=== PATIENT | female | born 2005 | race Caucasian/White ===

== ENCOUNTER 2023-07-22 16:48 | Emergency (ER) | payer OTHER ==
--- NOTE | 2023-07-22 17:16 | ED ---
General Adult HPI - General Chief complaint: Upper Respiratory Infection Stated complaint: Back Pain Time Seen by Provider: 07/22/23 17:14 Source: patient, family, RN notes reviewed Mode of arrival: ambulatory Limitations: no limitations - History of Present Illness Initial comments: 17-year-old female presents emergency department with chief complaint of right flank pain 3 days. Denies aggravating or alleviating factors. She also admits to dysuria. Denies gross hematuria. Admits to fever. She has no significant past medical history. No known medication ALLERGIES. - Related Data Previous Rx's Medication Instructions Recorded Cephalexin [Keflex] 500 mg PO Q6HR #40 cap 07/23/23 Allergies Allergy/AdvReac Type Severity Reaction Status Date / Time No Known Allergies Allergy Verified 07/22/23 17:12 Review of Systems ROS Statement: Those systems with pertinent positive or pertinent negative responses have been documented in the HPI. ROS Other: All systems not noted in ROS Statement are negative. Past Medical History Past Medical History: No Reported History Past Surgical History: No Surgical Hx Reported Smoking Status: Vaper Past Drug Use History: Marijuana General Exam - General Exam Comments Initial Comments: Visual Physical Exam Vital signs reviewed General: Well-appearing, nontoxic, no acute distress. Head: Normocephalic, atraumatic Eyes: PERRLA, EOMI ENT: Airway patent Chest: Nonlabored breathing Skin: No visual rash, normal skin tone Neuro: Alert and oriented 3 Musculoskeletal: No gross abnormalities Limitations: no limitations General appearance: alert, in no apparent distress Head exam: Present: atraumatic, normocephalic, normal inspection Eye exam: Present: normal appearance, PERRL, EOMI. Absent: scleral icterus, conjunctival injection, periorbital swelling ENT exam: Present: normal exam, mucous membranes moist Neck exam: Present: normal inspection. Absent: tenderness, meningismus, lymphadenopathy Respiratory exam: Present: normal lung sounds bilaterally. Absent: respiratory distress, wheezes, rales, rhonchi, stridor Cardiovascular Exam: Present: regular rate, normal rhythm, normal heart sounds. Absent: systolic murmur, diastolic murmur, rubs, gallop, clicks GI/Abdominal exam: Present: soft, normal bowel sounds. Absent: distended, tenderness, guarding, rebound, rigid Extremities exam: Present: normal inspection Back exam: Present: CVA tenderness (R). Absent: CVA tenderness (L) Neurological exam: Present: alert, oriented X3 Psychiatric exam: Present: normal affect, normal mood Skin exam: Present: warm, dry, intact, normal color. Absent: rash Course Vital Signs 07/22/23 07/22/23 17:08 21:38 Temperature 102.4 F H 99.1 F Pulse Rate 120 H 81 Respiratory 20 16 Rate Blood Pressure 122/60 115/74 O2 Sat by Pulse 98 100 Oximetry Medical Decision Making - Medical Decision Making Quick note preformed by Dulce Rodriguez PA-C Was pt. sent in by a medical professional or institution ([facility], STEREOTYPER, urgent care, hospital, or snf...) When possible be specific @ -No Did you speak to anyone other than the patient for history (EMS, parent, family, police, friend...)? What history was obtained from this source @ -No Did you review nursing and triage notes (agree or disagree)? Why? @ -I reviewed and agree with nursing and triage notes Were old charts reviewed (outside hosp., previous admission, EMS record, old EKG, old radiological studies, urgent care reports/EKG's, snf records)? Report findings @ -No old charts were reviewed Differential Diagnosis (chest pain, altered mental status, abdominal pain women, abdominal pain men, vaginal bleeding, weakness, fever, dyspnea, syncope, headache, dizziness, GI bleed, back pain, seizure, CVA, palpatations, mental health, musculoskeletal)? @ -Differential Back Pain: Strain, zoster, cauda equina syndrome, epidural abscess, vertebral osteomyelitis, discitis, fracture, subluxation, disc herniation, DJD, spinal ida nosis, dissection, AAA, pancreatitis, peptic ulcer disease, pyelonephritis, kidney stone, this is not meant to be an all-inclusive list. EKG interpreted by me (3pts min.). @ -None X-rays interpreted by me (1pt min.). @ -None done CT interpreted by me (1pt min.). @ -None done U/S interpreted by me (1pt. min.). @ -None done What testing was considered but not performed or refused? (CT, X-rays, U/S, labs)? Why? @ -CT imaging considered, clinical diagnosis of pyelonephritis utilized What meds were considered but not given or refused? Why? @ -None Did you discuss the management of the patient with other professionals (professionals i.e. , PA, STEREOTYPER, lab, RT, psych nurse, social media content manager, sanitation superintendent, teacher, home lending officer, upper caser)? Give summary @ -No Was smoking cessation discussed for >3mins.? @ -No Was critical care preformed (if so, how long)? @ -No Were there social determinants of health that impacted care today? How? (Homele ssness, low income, unemployed, alcoholism, drug addiction, transportation, low edu. Level, literacy, decrease access to med. care, penitentiary, rehab)? @ -No Was there de-escalation of care discussed even if they declined (Discuss DNR or withdrawal of care, Hospice)? DNR status @ -No What co-morbidities impacted this encounter? (DM, HTN, Smoking, COPD, CAD, Cancer, CVA, ARF, Chemo, Hep., AIDS, mental health diagnosis, sleep apnea, morbid obesity)? @ -None Was patient admitted / discharged? Hospital course, mention meds given and route, prescriptions, significant lab abnormalities, going to OR and other pertinent info. @ -Discharged. Patient presented to the emergency department with chief complaint of dysuria and right flank pain 3 days. UA obtained shows positive nitrates, large leukocyte esterase, greater than 182 diabetes sees, many wbc clumps; CBC shows WBC 8.8, hemoglobin 13.4; CMP essentially unremarkable; Covid, influenza, RSV negative. Patient is found to be afebrile and tachycardic in the emergency department. Patient received 2 L of normal saline and 1 g of Rocephin IV. Repeat vital signs within normal limits. Patient will be treated for clinical diagnosis of pyelonephritis. Patient stable for discharge and outpatient treatment. Prescription sent to the patient's pharmacy for antibiotics. Strict return precautions discussed. Patient and mother understand and agreeable with discharge plan. Case discussed with Dr. Meléndez Undiagnosed new problem with uncertain prognosis? @ -No Drug Therapy requiring intensive monitoring for toxicity (Heparin, Nitro, Insulin, Cardizem)? @ -No Were any procedures done? @ -No Diagnosis/symptom? @ -Pyelonephritis Acute, or Chronic, or Acute on Chronic? @ -acute Uncomplicated (without systemic symptoms) or Complicated (systemic symptoms)? @ -complicated Side effects of treatment? @ -No Exacerbation, Progression, or Severe Exacerbation? @ -No Poses a threat to life or bodily function? How? (Chest pain, [place], [place], pneumonia, PE, COPD, DKA, ARF, appy, cholecystitis, CVA, Diverticulitis, Homicidal, Suicidal, threat to staff... and all critical care pts) @ -No - Lab Data Result diagrams: 07/22/23 20:23 07/22/23 20:23 Lab Results 07/22/23 07/22/23 07/22/23 Range/Units 17:14 17:47 17:47 WBC (4.0-11.0) k/uL RBC (3.80-5.40) m/uL Hgb (11.4-16.0) gm/dL Hct (34.0-46.0) % MCV (80.0-100.0) fL MCH (25.0-35.0) pg MCHC (31.0-37.0) g/dL RDW (11.5-15.5) % Plt Count (150-450) k/uL MPV Neutrophils % % Lymphocytes % % Monocytes % % Eosinophils % % Basophils % % Neutrophils # (1.3-7.7) k/uL Lymphocytes # (1.0-4.8) k/uL Monocytes # (0-1.0) k/uL Eosinophils # (0-0.7) k/uL Basophils # (0-0.2) k/uL Sodium (137-145) mmol/L Potassium (3.5-5.1) mmol/L Chloride (98-107) mmol/L Carbon Dioxide (22-30) mmol/L Anion Gap mmol/L BUN (7-17) mg/dL Creatinine (0.52-1.04) mg/dL Est GFR (CKD-EPI)AfAm (>60 ml/min/1.73 sqM) Est GFR (CKD-EPI)NonAf (>60 ml/min/1.73 sqM) Glucose (74-99) mg/dL Plasma Lactic Acid Deep (0.7-2.0) mmol/L Calcium (8.4-10.2) mg/dL Total Bilirubin (0.2-1.3) mg/dL AST (14-36) U/L ALT (4-34) U/L Alkaline Phosphatase (38-126) U/L Total Protein (6.3-8.2) g/dL Albumin (3.5-5.0) g/dL Urine Color Yellow Urine Appearance Cloudy H (Clear) Urine pH 5.5 (5.0-8.0) Ur Specific [place] 1.025 (1.001-1.035) Urine Protein Trace H (Negative) Urine Glucose (UA) Negative (Negative) Urine Ketones Negative (Negative) Urine Blood Large (Negative) Urine Nitrite Positive (Negative) Urine Bilirubin Negative (Negative) Urine Urobilinogen <0.2 (<2.0) mg/dL Ur Leukocyte Esterase Large (Negative) Urine RBC 87 H (0-5) /hpf Urine WBC >182 H (0-5) /hpf Urine WBC Clumps Many H (None) /hpf Ur Squamous Epith Cells 1 (0-4) /hpf Urine Bacteria Moderate H (None) /hpf Urine Mucus Rare H (None) /hpf Urine HCG, Qual Not Detected (Not Detectd) Influenza Type A (PCR) Not Detected (Not Detectd) Influenza Type B (PCR) Not Detected (Not Detectd) RSV (PCR) Not Detected (Not Detectd) SARS-CoV-2 (PCR) Not Detected (Not Detectd) 07/22/23 07/22/23 07/22/23 Range/Units 20:23 20:23 20:23 WBC 8.8 (4.0-11.0) k/uL RBC 4.16 (3.80-5.40) m/uL Hgb 13.4 (11.4-16.0) gm/dL Hct 38.4 (34.0-46.0) % MCV 92.3 (80.0-100.0) fL MCH 32.2 (25.0-35.0) pg MCHC 34.8 (31.0-37.0) g/dL RDW 11.8 (11.5-15.5) % Plt Count 180 (150-450) k/uL MPV 8.8 Neutrophils % 84 % Lymphocytes % 5 % Monocytes % 9 % Eosinophils % 0 % Basophils % 0 % Neutrophils # 7.4 (1.3-7.7) k/uL Lymphocytes # 0.5 L (1.0-4.8) k/uL Monocytes # 0.8 (0-1.0) k/uL Eosinophils # 0.0 (0-0.7) k/uL Basophils # 0.0 (0-0.2) k/uL Sodium 135 L (137-145) mmol/L Potassium 3.8 (3.5-5.1) mmol/L Chloride 102 (98-107) mmol/L Carbon Dioxide 23 (22-30) mmol/L Anion Gap 10 mmol/L BUN 10 (7-17) mg/dL Creatinine 0.66 (0.52-1.04) mg/dL Est GFR (CKD-EPI)AfAm >90 (>60 ml/min/1.73 sqM) Est GFR (CKD-EPI)NonAf >90 (>60 ml/min/1.73 sqM) Glucose 108 H (74-99) mg/dL Plasma Lactic Acid Deep 1.1 (0.7-2.0) mmol/L Calcium 9.0 (8.4-10.2) mg/dL Total Bilirubin 0.6 (0.2-1.3) mg/dL AST 23 (14-36) U/L ALT 17 (4-34) U/L Alkaline Phosphatase 51 (38-126) U/L Total Protein 7.1 (6.3-8.2) g/dL Albumin 4.3 (3.5-5.0) g/dL Urine Color Urine Appearance (Clear) Urine pH (5.0-8.0) Ur Specific [place] (1.001-1.035) Urine Protein (Negative) Urine Glucose (UA) (Negative) Urine Ketones (Negative) Urine Blood (Negative) Urine Nitrite (Negative) Urine Bilirubin (Negative) Urine Urobilinogen (<2.0) mg/dL Ur Leukocyte Esterase (Negative) Urine RBC (0-5) /hpf Urine WBC (0-5) /hpf Urine WBC Clumps (None) /hpf Ur Squamous Epith Cells (0-4) /hpf Urine Bacteria (None) /hpf Urine Mucus (None) /hpf Urine HCG, Qual (Not Detectd) Influenza Type A (PCR) (Not Detectd) Influenza Type B (PCR) (Not Detectd) RSV (PCR) (Not Detectd) SARS-CoV-2 (PCR) (Not Detectd) Disposition Clinical Impression: Pyelonephritis Disposition: HOME SELF-CARE Condition: Stable Instructions (If sedation given, give patient instructions): Urinary Tract Infection in Women (ED) Additional Instructions: Please follow up with your primary care provider. Return to the emergency department for new or worsening symptoms. Prescriptions: Cephalexin [Keflex] 500 mg PO Q6HR #40 cap Is patient prescribed a controlled substance at d/c from ED?: No Referrals: None,Stated [Primary Care Provider] - 1-2 days
[2023-07-22 18:47] LABS: Bacteria,Urine Moderate /hpf; Mucus,Urine Rare /hpf; RBC,Urine 87 /hpf (0-5); Squamous Epithelial Cell,Urine 1 /hpf (0-4); WBC,Urine >182 /hpf (0-5)
[2023-07-22 18:52] LABS: Appearance,Urine Cloudy (Clear); Color,Urine Yellow; PH, Urine 5.5 (5.0-8.0); Specific Gravity,Urine 1.025 (1.001-1.035)
[2023-07-22 18:53] LABS: Bilirubin,Urine Negative (Negative); Blood,Urine Large (Negative); Glucose,Urine (UA) Negative (Negative); Ketones,Urine Negative (Negative); Leukocyte Esterase,Urine Large (Negative); Nitrite,Urine Positive (Negative); Protein,Urine Trace (Negative); Urobilinogen,Urine <0.2 mg/dL (<2.0)
[2023-07-22] MEDS ORDERED: SODIUM CHLORIDE 0.9% 2,000 ML IV ONE (20:08)
[2023-07-22] MEDS ORDERED: KETOROLAC 15 MG/ML 1 ML VIAL IVP STA (20:44)
[2023-07-22] MEDS ORDERED: ACETAMINOPHEN TAB 325 MG TAB PO STA (20:46)
[2023-07-22 21:13] LABS: ALT 17 U/L (4-34); AST 23 U/L (14-36); African American GFR (CKD) >90 (>60 ml/min/1.73 sqM); Albumin 4.3 g/dL (3.5-5.0); Alkaline Phosphatase 51 U/L (38-126); Anion Gap 10 mmol/L; Blood Urea Nitrogen 10 mg/dL (7-17); Carbon Dioxide 23 mmol/L (22-30); Chloride 102 mmol/L (98-107); Glucose 108 mg/dL (74-99); Non-African American GFR(CKD) >90 (>60 ml/min/1.73 sqM); Potassium 3.8 mmol/L (3.5-5.1); Sodium 135 mmol/L (137-145); Total Bilirubin 0.6 mg/dL (0.2-1.3); Total Protein 7.1 g/dL (6.3-8.2)
[2023-07-22 21:23] LABS: Basophils % (A) 0 %; Eosinophils % (A) 0 %; HCT 38.4 % (34.0-46.0); HGB 13.4 gm/dL (11.4-16.0); Lymphocytes # (A) 0.5 k/uL (1.0-4.8); Lymphocytes % (A) 5 %; MCH 32.2 pg (25.0-35.0); MCHC 34.8 g/dL (31.0-37.0); MCV 92.3 fL (80.0-100.0); Mean Platelet Volume 8.8; Monocytes # (A) 0.8 k/uL (0-1.0); Monocytes % (A) 9 %; Neutrophils # (A) 7.4 k/uL (1.3-7.7); Neutrophils % (A) 84 %; Platelet Count 180 k/uL (150-450); RBC 4.16 m/uL (3.80-5.40); RDW 11.8 % (11.5-15.5); WBC 8.8 k/uL (4.0-11.0)
[2023-07-22 21:46] VITALS: BP 115/74; PULSE 81; RESP 16; TEMP 99.1
== END 2023-07-22 22:24 | disposition home or self-care (01) ==
LOC: EC 16:48
DX: N12 Tubulo-interstitial nephritis, not specified as acute or chronic (principal); F17.290 Nicotine dependence, other tobacco product, uncomplicated; F12.90 Cannabis use, unspecified, uncomplicated; Z20.822 Contact with and (suspected) exposure to COVID-19
CPT/HCPCS: 36415; 80053; 83605; 85025; 81001; 81025; 87086; 87077; 87186; 87636; 99284; 96365; 96366; 96375; J0696; J1885

== ENCOUNTER 2024-07-10 11:28 | Emergency (ER) | payer OTHER ==
--- NOTE | 2024-07-10 12:01 | ED ---
Female Urogenital HPI - General Chief complaint: Urogenital Stated complaint: bladder pain Time Seen by Provider: 07/10/24 11:49 Source: patient, RN notes reviewed Mode of arrival: ambulatory Limitations: no limitations - History of Present Illness Initial comments: 18 year old female presents with chief complaint of intermittent dysuria. She states that her urine is cloudy and she has some mild left flank discomfort, but denies other complaints. She denies risk of being , hematuria, fevers, and abdominal pain. Denies other complaints. - Related Data Previous Rx's Medication Instructions Recorded Cephalexin [Keflex] 500 mg PO Q6HR #40 cap 07/23/23 Cephalexin [Keflex] 500 mg PO Q8HR #21 cap 07/10/24 Allergies Allergy/AdvReac Type Severity Reaction Status Date / Time No Known Allergies Allergy Verified 07/10/24 11:46 Review of Systems ROS Statement: Those systems with pertinent positive or pertinent negative responses have been documented in the HPI. ROS Other: All systems not noted in ROS Statement are negative. Past Medical History Past Medical History: No Reported History Past Surgical History: No Surgical Hx Reported Smoking Status: Vaper Past Alcohol Use History: None Reported Past Drug Use History: Marijuana General Exam Limitations: no limitations General appearance: alert, in no apparent distress Head exam: Present: atraumatic, normocephalic, normal inspection Eye exam: Present: normal appearance, PERRL, EOMI. Absent: scleral icterus, conjunctival injection, periorbital swelling ENT exam: Present: normal exam, mucous membranes moist Neck exam: Present: normal inspection. Absent: tenderness, meningismus, lymphadenopathy Respiratory exam: Present: normal lung sounds bilaterally. Absent: respiratory distress, wheezes, rales, rhonchi, stridor Cardiovascular Exam: Present: regular rate, normal rhythm, normal heart sounds. Absent: systolic murmur, diastolic murmur, rubs, gallop, clicks GI/Abdominal exam: Present: soft, normal bowel sounds. Absent: distended, tenderness, guarding, rebound, rigid Extremities exam: Present: normal inspection, full ROM, normal capillary refill. Absent: tenderness, pedal edema, joint swelling, calf tenderness Back exam: Present: normal inspection Neurological exam: Present: alert, oriented X3, CN II-XII intact Psychiatric exam: Present: normal affect, normal mood Skin exam: Present: warm, dry, intact, normal color. Absent: rash Course Vital Signs 07/10/24 07/10/24 11:46 12:57 Temperature 97.7 F 97.8 F Pulse Rate 89 97 Respiratory 18 16 Rate Blood Pressure 123/80 110/73 O2 Sat by Pulse 100 99 Oximetry Medical Decision Making - Medical Decision Making Was pt. sent in by a medical professional or institution (, [facility], CORPORATE TRAVEL AGENT, urgent care, hospital, or halfway...) When possible be specific @ -No Did you speak to anyone other than the patient for history (EMS, parent, family, police, friend...)? What history was obtained from this source @ -No Did you review nursing and triage notes (agree or disagree)? Why? @ -I reviewed and agree with nursing and triage notes Were old charts reviewed (outside hosp., previous admission, EMS record, old EKG, old radiological studies, urgent care reports/EKG's, halfway records)? Report findings @ -No old charts were reviewed Differential Diagnosis (chest pain, altered mental status, abdominal pain women, abdominal pain men, vaginal bleeding, weakness, fever, dyspnea, syncope, headache, dizziness, GI bleed, back pain, seizure, CVA, palpatations, mental health, musculoskeletal)? @ -UTI, dysuria EKG interpreted by me (3pts min.). @ -None X-rays interpreted by me (1pt min.). @ -None done CT interpreted by me (1pt min.). @ -None done U/S interpreted by me (1pt. min.). @ -None done What testing was considered but not performed or refused? (CT, X-rays, U/S, labs)? Why? @ -None What meds were considered but not given or refused? Why? @ -None Did you discuss the management of the patient with other professionals (professionals i.e. , [facility], CORPORATE TRAVEL AGENT, lab, RT, psych nurse, social media strategist, immigration lawyer, teacher, inshore undersea warfare officer, immigration case manager)? Give summary @ -No Was smoking cessation discussed for >3mins.? @ -No Was critical care preformed (if so, how long)? @ -No Were there social determinants of health that impacted care today? How? (Homelessness, low income, unemployed, alcoholism, drug addiction, transportation, low edu. Level, literacy, decrease access to med. care, long-term, rehab)? @ -No Was there de-escalation of care discussed even if they declined (Discuss DNR or withdrawal of care, Hospice)? DNR status @ -No What co-morbidities impacted this encounter? (DM, HTN, Smoking, COPD, CAD, Cancer, CVA, ARF, Chemo, Hep., AIDS, mental health diagnosis, sleep apnea, morbid obesity)? @ -None Was patient admitted / discharged? Hospital course, mention meds given and route, prescriptions, significant lab abnormalities, going to OR and other pertinent info. @ -Discharge patient presented for dysuria patient treated for UTI urine culture was sent. GC chlamydia was sent. Undiagnosed new problem with uncertain prognosis? @ -No Drug Therapy requiring intensive monitoring for toxicity (Heparin, Nitro, Insulin, Cardizem)? @ -No Were any procedures done? @ -No Diagnosis/symptom? @ -Dysuria UTI Acute, or Chronic, or Acute on Chronic? @ -Acute Uncomplicated (without systemic symptoms) or Complicated (systemic symptoms)? @ -Uncomplicated Side effects of treatment? @ -No Exacerbation, Progression, or Severe Exacerbation? @ -No Poses a threat to life or bodily function? How? (Chest pain, [place], [place], pneumonia, PE, COPD, DKA, ARF, appy, cholecystitis, CVA, Diverticulitis, Homicidal, Suicidal, threat to staff... and all critical care pts) @ -No - Lab Data Lab Results 07/10/24 07/10/24 Range/Units 12:09 12:09 Urine Color Yellow Urine Appearance Clear (Clear) Urine pH 6.5 (5.0-8.0) Ur Specific [place] 1.021 (1.001-1.035) Urine Protein Negative (Negative) Urine Glucose (UA) Negative (Negative) Urine Ketones Negative (Negative) Urine Blood Negative (Negative) Urine Nitrite Negative (Negative) Urine Bilirubin Negative (Negative) Urine Urobilinogen <2.0 (<2.0) mg/dL Ur Leukocyte Esterase Trace H (Negative) Urine WBC 7 H (0-5) /hpf Ur Squamous Epith Cells 2 (0-4) /hpf Urine Bacteria Rare H (None) /hpf Urine Mucus Rare H (None) /hpf Urine HCG, Qual Not Detected (Not Detectd) Disposition Clinical Impression: Dysuria, Cystitis Disposition: HOME SELF-CARE Condition: Stable Instructions (If sedation given, give patient instructions): Urinary Tract Infection in Women (ED) Additional Instructions: Please return to the Emergency Department if symptoms worsen or any other concerns. Prescriptions: Cephalexin [Keflex] 500 mg PO Q8HR #21 cap Is patient prescribed a controlled substance at d/c from ED?: No Referrals: None,Stated [Primary Care Provider] - 1-2 days Kala Blanc DO [Doctor of Osteopathic Medicine] - 1-2 days Time of Disposition: 12:35
[2024-07-10 12:26] LABS: Appearance,Urine Clear (Clear); Bacteria,Urine Rare /hpf; Bilirubin,Urine Negative (Negative); Blood,Urine Negative (Negative); Color,Urine Yellow; Glucose,Urine (UA) Negative (Negative); Ketones,Urine Negative (Negative); Leukocyte Esterase,Urine Trace (Negative); Mucus,Urine Rare /hpf; Nitrite,Urine Negative (Negative); PH, Urine 6.5 (5.0-8.0); Protein,Urine Negative (Negative); Specific Gravity,Urine 1.021 (1.001-1.035); Squamous Epithelial Cell,Urine 2 /hpf (0-4); Urobilinogen,Urine <2.0 mg/dL (<2.0); WBC,Urine 7 /hpf (0-5)
[2024-07-10 12:58] VITALS: BP 110/73; PULSE 97; RESP 16; TEMP 97.8
[2024-07-11 12:01] LABS: N. gonorrhoeae,PCR Negative (Negative)
[2024-07-11 12:14] LABS: C. trachomatis,PCR Negative (Negative)
== END 2024-07-10 12:58 | disposition home or self-care (01) ==
LOC: EC 11:28
DX: N30.90 Cystitis, unspecified without hematuria (principal); F17.290 Nicotine dependence, other tobacco product, uncomplicated
CPT/HCPCS: 81001; 81025; 87086; 87491; 87591; 99283

== ENCOUNTER 2024-09-19 15:31 | Emergency (ER) | payer OTHER ==
--- NOTE | 2024-09-19 16:16 | ED ---
Female Urogenital HPI - General Chief complaint: Urogenital Stated complaint: female issues Time Seen by Provider: 09/19/24 16:00 Source: patient, RN notes reviewed Mode of arrival: ambulatory Limitations: no limitations - History of Present Illness Initial comments: This is a 19-year-old female, G2A2L0, with no significant medical history presenting to the emergency department with vaginal discharge and burning with urination. Patient states that she had a medically dosed on 09/05/2024. She states that vaginal bleeding has ceased a few days prior however experienced a light brown color on toilet paper after she has urinated. Patient is presenting to rule out infection as today when she has been using the restroom and urinating she is been having a vaginal burning sensation. She denies increase in urinary frequency or urgency, vaginal odor, vaginal discharge, flank or back pain. She denies nausea, vomiting, fevers, chills. Denies concern for STI or STD. - Related Data Previous Rx's Medication Instructions Recorded Cephalexin [Keflex] 500 mg PO Q6HR #40 cap 07/23/23 Cephalexin [Keflex] 500 mg PO Q8HR #21 cap 07/10/24 Nitrofurantoin Monohyd/M-Cryst 100 mg PO Q12HR #14 cap 09/19/24 [Macrobid] Allergies Allergy/AdvReac Type Severity Reaction Status Date / Time No Known Allergies Allergy Verified 09/19/24 15:40 Review of Systems ROS Statement: Those systems with pertinent positive or pertinent negative responses have been documented in the HPI. ROS Other: All systems not noted in ROS Statement are negative. Past Medical History Past Medical History: No Reported History History of Any Multi-Drug Resistant Organisms: None Reported Past Surgical History: No Surgical Hx Reported Past Psychological History: No Psychological Hx Reported Smoking Status: Vaper Past Alcohol Use History: None Reported Past Drug Use History: Marijuana General Exam Limitations: no limitations General appearance: alert, in no apparent distress Respiratory exam: Present: normal lung sounds bilaterally. Absent: respiratory distress, wheezes, rales, rhonchi, stridor Cardiovascular Exam: Present: regular rate, normal rhythm, normal heart sounds. Absent: systolic murmur, diastolic murmur, rubs, gallop, clicks GI/Abdominal exam: Present: soft, normal bowel sounds. Absent: distended, tenderness, guarding, rebound, rigid External exam: Present: normal external exam. Absent: lesions, lacerations Speculum exam: Present: vaginal discharge. Absent: erythema, vaginal bleeding By manual exam: Absent: cervical motion tenderness Extremities exam: Present: normal inspection, full ROM, normal capillary refill. Absent: tenderness, pedal edema, joint swelling, calf tenderness Back exam: Present: normal inspection Course Vital Signs 09/19/24 09/19/24 09/19/24 15:38 17:09 17:51 Temperature 98.1 F 98.3 F 98.4 F Pulse Rate 81 76 Respiratory 16 18 Rate Blood Pressure 120/81 130/78 O2 Sat by Pulse 100 100 Oximetry Medical Decision Making - Medical Decision Making Was pt. sent in by a medical professional or institution (, PA, ELECTRO MECHANICAL ENGINEER, urgent care, hospital, or correction...) When possible be specific @ -No Did you speak to anyone other than the patient for history (EMS, parent, family, police, friend...)? What history was obtained from this source @ -No Did you review nursing and triage notes (agree or disagree)? Why? @ -I reviewed and agree with nursing and triage notes Were old charts reviewed (outside hosp., previous admission, EMS record, old EKG, old radiological studies, urgent care reports/EKG's, correction records)? Report findings @ -No old charts were reviewed Differential Diagnosis (chest pain, altered mental status, abdominal pain women, abdominal pain men, vaginal bleeding, weakness, fever, dyspnea, syncope, headache, dizziness, GI bleed, back pain, seizure, CVA, palpatations, mental health, musculoskeletal)? @ -Differential Abdominal Pain Women: Appendicitis, Cholecystitis, diverticulosis, ischemic bowel, pancreatitis, hepatitis, UTI, gastroenteritis, AAA, incarcerated hernia, bowel obstruction, constipation, inflammatory bowel, hepatitis, peptic ulcer disease, splenic infarction, perforated viscus, vulvitis, ovarian torsion, PID, kidney stone, placenta abruption, this is not meant to be an all-inclusive list EKG interpreted by me (3pts min.). @ -None X-rays interpreted by me (1pt min.). @ -None done CT interpreted by me (1pt min.). @ -None done U/S interpreted by me (1pt. min.). @ -None done What testing was considered but not performed or refused? (CT, X-rays, U/S, labs)? Why? @ -None What meds were considered but not given or refused? Why? @ -None Did you discuss the management of the patient with other professionals (professionals i.e. , PA, ELECTRO MECHANICAL ENGINEER, lab, RT, psych nurse, rn social services, geography teacher, teacher, fire control officer, child support case officer)? Give summary @ -No Was smoking cessation discussed for >3mins.? @ -No Was critical care preformed (if so, how long)? @ -No Were there social determinants of health that impacted care today? How? (Homelessness, low income, unemployed, alcoholism, drug addiction, transportation, low edu. Level, literacy, decrease access to med. care, senior living, rehab)? @ -No Was there de-escalation of care discussed even if they declined (Discuss DNR or withdrawal of care, Hospice)? DNR status @ -No What co-morbidities impacted this encounter? (DM, HTN, Smoking, COPD, CAD, Cancer, CVA, ARF, Chemo, Hep., AIDS, mental health diagnosis, sleep apnea, morbid obesity)? @ -None Was patient admitted / discharged? Hospital course, mention meds given and route, prescriptions, significant lab abnormalities, going to OR and other pertinent info. @ -Discharge. 18-year-old female presenting with dysuria. Patient's vitals are stable and on my evaluation she is resting company no signs acute distress. Physical exam remarkable for vaginal discharge with no vaginal bleeding or cervical motion tenderness. Urine remarkable for infection with positive nitrates and leukocyte esterase and white cells. Patient's urine is sent for culture. Additionally, hCG level 613. Recommend patient follow-up with OB outpatient for further evaluation and continued trending of hCG levels. Case discussed with Dr. Alva Undiagnosed new problem with uncertain prognosis? @ -No Drug Therapy requiring intensive monitoring for toxicity (Heparin, Nitro, Insulin, Cardizem)? @ -No Were any procedures done? @ -No Diagnosis/symptom? @ -Urinary tract infection Acute, or Chronic, or Acute on Chronic? @ -Acute Uncomplicated (without systemic symptoms) or Complicated (systemic symptoms)? @ -uncomplicated Side effects of treatment? @ -No Exacerbation, Progression, or Severe Exacerbation? @ -No Poses a threat to life or bodily function? How? (Chest pain, [place], [place], pneumonia, PE, COPD, DKA, ARF, appy, cholecystitis, CVA, Diverticulitis, Homicidal, Suicidal, threat to staff... and all critical care pts) @ -No - Lab Data Lab Results 09/19/24 09/19/24 09/19/24 Range/Units 16:31 16:31 17:48 HCG, Quant 613.7 mIU/mL Urine Color Light Yellow Urine Appearance Cloudy H (Clear) Urine pH 6.5 (5.0-8.0) Ur Specific [place] 1.015 (1.001-1.035) Urine Protein Negative (Negative) Urine Glucose (UA) Negative (Negative) Urine Ketones Negative (Negative) Urine Blood Negative (Negative) Urine Nitrite Positive H (Negative) Urine Bilirubin Negative (Negative) Urine Urobilinogen 2.0 (<2.0) mg/dL Ur Leukocyte Esterase Moderate H (Negative) Urine RBC 3 (0-5) /hpf Urine WBC 14 H (0-5) /hpf Ur Squamous Epith Cells 3 (0-4) /hpf Urine Bacteria Few H (None) /hpf Hyaline Casts 1 (0-2) /lpf Urine Mucus Moderate H (None) /hpf Urine Yeast (Budding) Occasional H (None) /hpf Urine HCG, Qual Detected (Not Detectd) Disposition Clinical Impression: UTI (urinary tract infection) Disposition: HOME SELF-CARE Condition: Good Instructions (If sedation given, give patient instructions): Urinary Tract Infection in Women (ED) Additional Instructions: Please return to the Emergency Department if symptoms worsen or any other concerns. Prescriptions: Nitrofurantoin Monohyd/M-Cryst [Macrobid] 100 mg PO Q12HR #14 cap Is patient prescribed a controlled substance at d/c from ED?: No Referrals: None,Stated [Primary Care Provider] - 1-2 days Time of Disposition: 17:34
[2024-09-19 17:14] LABS: Appearance,Urine Cloudy (Clear); Bacteria,Urine Few /hpf; Bilirubin,Urine Negative (Negative); Blood,Urine Negative (Negative); Budding Yeast,Urine Occasional /hpf; Color,Urine Light Yellow; Glucose,Urine (UA) Negative (Negative); Hyaline Casts,Urine 1 /lpf (0-2); Ketones,Urine Negative (Negative); Leukocyte Esterase,Urine Moderate (Negative); Mucus,Urine Moderate /hpf; Nitrite,Urine Positive (Negative); PH, Urine 6.5 (5.0-8.0); Protein,Urine Negative (Negative); RBC,Urine 3 /hpf (0-5); Specific Gravity,Urine 1.015 (1.001-1.035); Squamous Epithelial Cell,Urine 3 /hpf (0-4); WBC,Urine 14 /hpf (0-5)
[2024-09-19 17:52] VITALS: BP 130/78; PULSE 76; RESP 18; TEMP 98.4
== END 2024-09-19 17:52 | disposition home or self-care (01) ==
LOC: EC 15:31
DX: N39.0 Urinary tract infection, site not specified (principal); F17.290 Nicotine dependence, other tobacco product, uncomplicated
CPT/HCPCS: 36415; 81001; 81025; 84702; 87086; 99283

== ENCOUNTER 2024-10-12 13:13 | Emergency (ER) | payer OTHER ==
[2024-10-12 13:20] VITALS: RESP 18; TEMP 97.9
[2024-10-12 14:12] LABS: Appearance,Urine Cloudy (Clear); Bilirubin,Urine Negative (Negative); Blood,Urine Large (Negative); Color,Urine Colorless; Glucose,Urine (UA) Negative (Negative); Hyaline Casts,Urine 1 /lpf (0-2); Ketones,Urine Negative (Negative); Leukocyte Esterase,Urine Small (Negative); Nitrite,Urine Negative (Negative); PH, Urine 5.5 (5.0-8.0); Protein,Urine Negative (Negative); RBC,Urine <1 /hpf (0-5); Specific Gravity,Urine 1.001 (1.001-1.035); Squamous Epithelial Cell,Urine 1 /hpf (0-4); Urobilinogen,Urine <2.0 mg/dL (<2.0); WBC,Urine 4 /hpf (0-5)
--- NOTE | 2024-10-12 14:50 | ED ---
Recheck HPI - General Chief Complaint: Recheck/Abnormal Lab/Rx Stated Complaint: Abd/back pain Time Seen by Provider: 10/12/24 13:30 Source: patient, RN notes reviewed Mode of arrival: ambulatory Limitations: no limitations - History of Present Illness Initial Comments: This is a 19-year-old female presenting from [facility] urgent care planing of ongoing urinary symptoms x 3 weeks. Patient endorses dysuria, crease frequency, urgency and back pain. Patient states that UA at urgent care showed positive test. Endorses receiving Macrobid on 09/19/2024 without resolution. Endorses then receiving Keflex with minimal relief. Patient underwent a medically induced on 09/04/2024 with quantitative hCG of 613 on 09/19/2024 noted. MD Complaint: abnormal lab Onset/Timin -: days(s) Associated Symptoms: abdominal pain (Left abdominal/back pain) Treatments Prior to Arrival: Given Antibiotics on - Related Data Previous Rx's Medication Instructions Recorded Cephalexin [Keflex] 500 mg PO Q6HR #40 cap 07/23/23 Cephalexin [Keflex] 500 mg PO Q8HR #21 cap 07/10/24 Nitrofurantoin Monohyd/M-Cryst 100 mg PO Q12HR #14 cap 09/19/24 [Macrobid] Ibuprofen 400 mg PO Q8H PRN #30 tablet 10/12/24 Allergies Allergy/AdvReac Type Severity Reaction Status Date / Time No Known Allergies Allergy Verified 10/12/24 13:20 Review of Systems ROS Statement: Those systems with pertinent positive or pertinent negative responses have been documented in the HPI. ROS Other: All systems not noted in ROS Statement are negative. Past Medical History Past Medical History: No Reported History History of Any Multi-Drug Resistant Organisms: None Reported Past Surgical History: No Surgical Hx Reported Past Psychological History: No Psychological Hx Reported Smoking Status: Vaper Past Alcohol Use History: None Reported Past Drug Use History: None Reported General Exam Limitations: no limitations General appearance: alert, in no apparent distress Head exam: Present: atraumatic, normocephalic, normal inspection Eye exam: Present: normal appearance, PERRL, EOMI. Absent: scleral icterus, conjunctival injection, periorbital swelling ENT exam: Present: normal exam, mucous membranes moist Neck exam: Present: normal inspection. Absent: tenderness, meningismus, lymphadenopathy Respiratory exam: Present: normal lung sounds bilaterally. Absent: respiratory distress, wheezes, rales, rhonchi, stridor Cardiovascular Exam: Present: regular rate, normal rhythm, normal heart sounds. Absent: systolic murmur, diastolic murmur, rubs, gallop, clicks GI/Abdominal exam: Present: soft, tenderness (Positive hypogastric tenderness without guarding), normal bowel sounds. Absent: distended, guarding, rebound, rigid Extremities exam: Present: normal inspection, full ROM, normal capillary refill. Absent: tenderness, pedal edema, joint swelling, calf tenderness Back exam: Present: normal inspection Neurological exam: Present: alert, oriented X3, CN II-XII intact Psychiatric exam: Present: normal affect, normal mood Skin exam: Present: warm, dry, intact, normal color. Absent: rash Course Vital Signs 10/12/24 10/12/24 13:16 15:45 Temperature 97.9 F Pulse Rate 104 H 97 Respiratory 18 18 Rate Blood Pressure 128/80 131/74 O2 Sat by Pulse 100 99 Oximetry Medical Decision Making - Medical Decision Making Was pt. sent in by a medical professional or institution (, PA, CRACKING MACHINE OPERATOR, urgent care, hospital, or shelter...) When possible be specific @ -[facility] urgent care Did you speak to anyone other than the patient for history (EMS, parent, family, police, friend...)? What history was obtained from this source @ -Spoke to Belle from [facility] urgent care on by phone, who advised that UA performed there today was also negative for UTI Did you review nursing and triage notes (agree or disagree)? Why? @ -I reviewed and agree with nursing and triage notes Were old charts reviewed (outside hosp., previous admission, EMS record, old EKG, old radiological studies, urgent care reports/EKG's, shelter records)? Report findings @ -No old charts were reviewed Differential Diagnosis (chest pain, altered mental status, abdominal pain women, abdominal pain men, vaginal bleeding, weakness, fever, dyspnea, syncope, headache, dizziness, GI bleed, back pain, seizure, CVA, palpatations, mental health, musculoskeletal)? @ -Differential Abdominal Pain Women: Appendicitis, Cholecystitis, diverticulosis, ischemic bowel, pancreatitis, hepatitis, UTI, gastroenteritis, AAA, incarcerated hernia, bowel obstruction, constipation, inflammatory bowel, hepatitis, peptic ulcer disease, splenic infarction, perforated viscus, vulvitis, ovarian torsion, PID, kidney stone, placenta abruption, this is not meant to be an all-inclusive list EKG interpreted by me (3pts min.). @ -Not done X-rays interpreted by me (1pt min.). @ -None done CT interpreted by me (1pt min.). @ -None done U/S interpreted by me (1pt. min.). @ -None done What testing was considered but not performed or refused? (CT, X-rays, U/S, labs)? Why? @ -None What meds were considered but not given or refused? Why? @ -None Did you discuss the management of the patient with other professionals (professionals i.e. , PA, CRACKING MACHINE OPERATOR, lab, RT, psych nurse, aids social worker, web marketing strategist, teacher, chief information security officer, corrections caseworker)? Give summary @ -No Was smoking cessation discussed for >3mins.? @ -No Was critical care preformed (if so, how long)? @ -No Were there social determinants of health that impacted care today? How? (Homelessness, low income, unemployed, alcoholism, drug addiction, transportation, low edu. Level, literacy, decrease access to med. care, correction, rehab)? @ -No Was there de-escalation of care discussed even if they declined (Discuss DNR or withdrawal of care, Hospice)? DNR status @ -No What co-morbidities impacted this encounter? (DM, HTN, Smoking, COPD, CAD, Cancer, CVA, ARF, Chemo, Hep., AIDS, mental health diagnosis, sleep apnea, morbid obesity)? @ -None Was patient admitted / discharged? Hospital course, mention meds given and route, prescriptions, significant lab abnormalities, going to OR and other pertinent info. @ -Lab work shows leukopenia 2.6 and otherwise unremarkable. UA shows large amount of blood with small number of RBC and no indication of UTI. Urine hCG negative and quantitative hCG 20.8. Reassurance of negative conveyed to patient. Patient advised to supplement with d-mannose and increase cranberry juice intake. Advised follow-up with PCP/urology for ongoing urinary symptoms. Motrin 400 sent to patient's pharmacy. Discussed patient with Dr. Song. Undiagnosed new problem with uncertain prognosis? @ -No Drug Therapy requiring intensive monitoring for toxicity (Heparin, Nitro, Insulin, Cardizem)? @ -No Were any procedures done? @ -No Diagnosis/symptom? @ -Dysuria Acute, or Chronic, or Acute on Chronic? @ -Acute Uncomplicated (without systemic symptoms) or Complicated (systemic symptoms)? @ -Complicated Side effects of treatment? @ -No Exacerbation, Progression, or Severe Exacerbation? @ -No Poses a threat to life or bodily function? How? (Chest pain, [place], [place], pneumonia, PE, COPD, DKA, ARF, appy, cholecystitis, CVA, Diverticulitis, Homicidal, Suicidal, threat to staff... and all critical care pts) @ -No - Lab Data Result diagrams: 10/12/24 14:47 10/12/24 14:47 Lab Results 10/12/24 10/12/24 10/12/24 Range/Units 13:41 14:47 14:47 WBC 2.6 L (3.8-10.6) k/uL RBC 4.07 (3.80-5.40) m/uL Hgb 12.8 (11.4-16.0) gm/dL Hct 37.0 (34.0-46.0) % MCV 90.7 (80.0-100.0) fL MCH 31.5 (25.0-35.0) pg MCHC 34.7 (31.0-37.0) g/dL RDW 11.3 L (11.5-15.5) % Plt Count 174 (150-450) k/uL MPV 7.8 Neutrophils % 66 % Lymphocytes % 17 % Monocytes % 13 % Eosinophils % 0 % Basophils % 1 % Neutrophils # 1.8 (1.3-7.7) k/uL Lymphocytes # 0.5 L (1.0-4.8) k/uL Monocytes # 0.3 (0-1.0) k/uL Eosinophils # 0.0 (0-0.7) k/uL Basophils # 0.0 (0-0.2) k/uL Sodium (137-145) mmol/L Potassium (3.5-5.1) mmol/L Chloride (98-107) mmol/L Carbon Dioxide (22-30) mmol/L Anion Gap mmol/L BUN (7-17) mg/dL Creatinine (0.52-1.04) mg/dL Est GFR (CKD-EPI)AfAm (>60 ml/min/1.73 sqM) Est GFR (CKD-EPI)NonAf (>60 ml/min/1.73 sqM) Glucose (74-99) mg/dL Calcium (8.4-10.2) mg/dL Total Bilirubin (0.2-1.3) mg/dL AST (14-36) U/L ALT (4-34) U/L Alkaline Phosphatase (38-126) U/L Total Protein (6.3-8.2) g/dL Albumin (3.5-5.0) g/dL HCG, Quant mIU/mL Urine Color Colorless Urine Appearance Cloudy H (Clear) Urine pH 5.5 (5.0-8.0) Ur Specific [place] 1.001 (1.001-1.035) Urine Protein Negative (Negative) Urine Glucose (UA) Negative (Negative) Urine Ketones Negative (Negative) Urine Blood Large H (Negative) Urine Nitrite Negative (Negative) Urine Bilirubin Negative (Negative) Urine Urobilinogen <2.0 (<2.0) mg/dL Ur Leukocyte Esterase Small H (Negative) Urine RBC <1 (0-5) /hpf Urine WBC 4 (0-5) /hpf Ur Squamous Epith Cells 1 (0-4) /hpf Hyaline Casts 1 (0-2) /lpf Urine HCG, Qual Not Detected (Not Detectd) 10/12/24 Range/Units 14:47 WBC (3.8-10.6) k/uL RBC (3.80-5.40) m/uL Hgb (11.4-16.0) gm/dL Hct (34.0-46.0) % MCV (80.0-100.0) fL MCH (25.0-35.0) pg MCHC (31.0-37.0) g/dL RDW (11.5-15.5) % Plt Count (150-450) k/uL MPV Neutrophils % % Lymphocytes % % Monocytes % % Eosinophils % % Basophils % % Neutrophils # (1.3-7.7) k/uL Lymphocytes # (1.0-4.8) k/uL Monocytes # (0-1.0) k/uL Eosinophils # (0-0.7) k/uL Basophils # (0-0.2) k/uL Sodium 135 L (137-145) mmol/L Potassium 4.3 (3.5-5.1) mmol/L Chloride 102 (98-107) mmol/L Carbon Dioxide 25 (22-30) mmol/L Anion Gap 8 mmol/L BUN 10 (7-17) mg/dL Creatinine 0.75 (0.52-1.04) mg/dL Est GFR (CKD-EPI)AfAm >90 (>60 ml/min/1.73 sqM) Est GFR (CKD-EPI)NonAf >90 (>60 ml/min/1.73 sqM) Glucose 86 (74-99) mg/dL Calcium 9.2 (8.4-10.2) mg/dL Total Bilirubin 0.6 (0.2-1.3) mg/dL AST 32 (14-36) U/L ALT 17 (4-34) U/L Alkaline Phosphatase 44 (38-126) U/L Total Protein 7.0 (6.3-8.2) g/dL Albumin 4.3 (3.5-5.0) g/dL HCG, Quant 20.8 mIU/mL Urine Color Urine Appearance (Clear) Urine pH (5.0-8.0) Ur Specific [place] (1.001-1.035) Urine Protein (Negative) Urine Glucose (UA) (Negative) Urine Ketones (Negative) Urine Blood (Negative) Urine Nitrite (Negative) Urine Bilirubin (Negative) Urine Urobilinogen (<2.0) mg/dL Ur Leukocyte Esterase (Negative) Urine RBC (0-5) /hpf Urine WBC (0-5) /hpf Ur Squamous Epith Cells (0-4) /hpf Hyaline Casts (0-2) /lpf Urine HCG, Qual (Not Detectd) Disposition Clinical Impression: Dysuria Disposition: HOME SELF-CARE Condition: Good Instructions (If sedation given, give patient instructions): Dysuria (ED) Additional Instructions: Follow-up with PCP/urology/SOFTBALL CORE MOLDER for ongoing urinary symptoms. Prescriptions: Ibuprofen 400 mg PO Q8H PRN #30 tablet PRN Reason: Pain Is patient prescribed a controlled substance at d/c from ED?: No Referrals: None,Stated [Primary Care Provider] - 1-2 days Time of Disposition: 15:42
[2024-10-12 14:55] LABS: Basophils % (A) 1 %; Eosinophils % (A) 0 %; HGB 12.8 gm/dL (11.4-16.0); Lymphocytes # (A) 0.5 k/uL (1.0-4.8); Lymphocytes % (A) 17 %; MCH 31.5 pg (25.0-35.0); MCHC 34.7 g/dL (31.0-37.0); MCV 90.7 fL (80.0-100.0); Mean Platelet Volume 7.8; Monocytes # (A) 0.3 k/uL (0-1.0); Monocytes % (A) 13 %; Neutrophils # (A) 1.8 k/uL (1.3-7.7); Neutrophils % (A) 66 %; Platelet Count 174 k/uL (150-450); RBC 4.07 m/uL (3.80-5.40); RDW 11.3 % (11.5-15.5); WBC 2.6 k/uL (3.8-10.6)
[2024-10-12 15:11] LABS: ALT 17 U/L (4-34); AST 32 U/L (14-36); African American GFR (CKD) >90 (>60 ml/min/1.73 sqM); Albumin 4.3 g/dL (3.5-5.0); Alkaline Phosphatase 44 U/L (38-126); Anion Gap 8 mmol/L; Blood Urea Nitrogen 10 mg/dL (7-17); Calcium 9.2 mg/dL (8.4-10.2); Carbon Dioxide 25 mmol/L (22-30); Chloride 102 mmol/L (98-107); Glucose 86 mg/dL (74-99); Non-African American GFR(CKD) >90 (>60 ml/min/1.73 sqM); Potassium 4.3 mmol/L (3.5-5.1); Sodium 135 mmol/L (137-145); Total Bilirubin 0.6 mg/dL (0.2-1.3)
[2024-10-12 15:27] LABS: HCG,Quantitative Serum 20.8 mIU/mL
[2024-10-12 15:46] VITALS: BP 131/74; PULSE 97
[2024-10-15 13:19] LABS: N. gonorrhoeae,PCR Negative (Negative)
[2024-10-15 13:22] LABS: C. trachomatis,PCR Negative (Negative)
== END 2024-10-12 15:51 | disposition home or self-care (01) ==
LOC: EC 13:13
DX: R30.0 Dysuria (principal); D72.819 Decreased white blood cell count, unspecified; R10.9 Unspecified abdominal pain; F17.290 Nicotine dependence, other tobacco product, uncomplicated
CPT/HCPCS: 36415; 80053; 81001; 81025; 84702; 85025; 87491; 87591; 99284

== ENCOUNTER 2024-10-15 11:35 | Inpatient (IN) | payer OTHER ==
--- NOTE | 2024-10-15 12:36 | XR ---
EXAMINATION TYPE: XR chest 2V DATE OF EXAM: 10/15/2024 12:26 PM COMPARISON: None. CLINICAL INDICATION: Female, 19 years old with history of cough fever, TECHNIQUE: Frontal and lateral views of the chest are obtained. FINDINGS: There is no focal air space opacity, pleural effusion, or pneumothorax seen. The cardiac silhouette size is within normal limits. The osseous structures are intact. IMPRESSION: No acute pulmonary infiltrate. [facility], , 10/15/2024 12:34 PM
[2024-10-15 13:01] LABS: Influenza A Not Detected (Not Detectd); Influenza B Not Detected (Not Detectd); RSV Not Detected (Not Detectd)
--- NOTE | 2024-10-15 13:24 | ED ---
URI HPI - General Source: patient, RN notes reviewed Mode of arrival: ambulatory Limitations: no limitations - History of Present Illness MD Complaint: fever Onset/Timin -: days(s) Associated Symptoms: fever, myalgias, headache, abdominal pain, dysuria <Laureano Joshua - Last Filed: 10/15/24 19:11> <Courtney Alva - Last Filed: 10/17/24 13:45> - General Chief Complaint: Upper Respiratory Infection Stated Complaint: headache, body aches, vomitting Time Seen by Provider: 10/15/24 11:50 - History of Present Illness Initial Comments: This is a 19-year-old female presenting with sick symptoms for the 3 days. Endorses fever, headache, body aches, fatigue, decreased appetite and abdominal pain. Patient underwent medically induced 09/05/2024. Seen in this ER on 09/19/2024 for issues with a quantitative hCG of 613 at that time. Seen again in this ER on 10/12/2024 for urinary symptoms with quantitative hCG of 20.8 then. Patient denies congestion, cough, chest pain, dyspnea, nausea/vomiting, diarrhea, urinary symptoms, vaginal discharge/bleeding. (Laureano Joshua) - Related Data Home Medications Medication Instructions Recorded Confirmed Acetaminophen Tab [Tylenol Tab] 500 mg PO Q6H PRN 10/15/24 10/15/24 Previous Rx's Medication Instructions Recorded Ibuprofen 400 mg PO Q8H PRN #30 tablet 10/12/24 Allergies Allergy/AdvReac Type Severity Reaction Status Date / Time No Known Allergies Allergy Verified 10/15/24 16:09 Review of Systems ROS Other: All systems not noted in ROS Statement are negative. <Laureano Joshua - Last Filed: 10/15/24 19:11> ROS Other: All systems not noted in ROS Statement are negative. <Courtney Alva - Last Filed: 10/17/24 13:45> ROS Statement: Those systems with pertinent positive or pertinent negative responses have been documented in the HPI. Past Medical History Past Medical History: No Reported History History of Any Multi-Drug Resistant Organisms: None Reported Past Surgical History: No Surgical Hx Reported Past Psychological History: No Psychological Hx Reported Smoking Status: Vaper Past Alcohol Use History: None Reported Past Drug Use History: None Reported <Laureano Joshua - Last Filed: 10/15/24 19:11> General Exam Limitations: no limitations General appearance: alert, in distress Head exam: Present: atraumatic, normocephalic, normal inspection Eye exam: Present: normal appearance, PERRL, EOMI. Absent: scleral icterus, conjunctival injection, periorbital swelling ENT exam: Present: normal oropharynx, mucous membranes dry, TM's normal bilaterally Neck exam: Present: normal inspection. Absent: tenderness, meningismus, lymphadenopathy Respiratory exam: Present: normal lung sounds bilaterally. Absent: respiratory distress, wheezes, rales, rhonchi, stridor Cardiovascular Exam: Present: regular rate, normal rhythm, normal heart sounds. Absent: systolic murmur, diastolic murmur, rubs, gallop, clicks GI/Abdominal exam: Present: soft, tenderness (Diffuse abdominal tenderness without guarding), diminished bowel sounds, hypoactive bowel sounds. Absent: distended, guarding, rebound, rigid Extremities exam: Present: normal inspection, full ROM, normal capillary refill. Absent: tenderness, pedal edema, joint swelling, calf tenderness Back exam: Present: CVA tenderness (L) Neurological exam: Present: alert, oriented X3, CN II-XII intact Psychiatric exam: Present: normal affect, normal mood Skin exam: Present: warm, dry, intact, normal color. Absent: rash <Laureano Joshua - Last Filed: 10/15/24 19:11> Course Vital Signs 10/15/24 10/15/24 10/15/24 11:57 14:34 16:10 Temperature 101.1 F H 98.9 F 98.7 F Pulse Rate 125 H 96 83 Respiratory 20 18 18 Rate Blood Pressure 96/55 101/67 O2 Sat by Pulse 98 97 99 Oximetry 10/15/24 17:42 Temperature 98.4 F Pulse Rate 86 Respiratory 20 Rate Blood Pressure 109/73 O2 Sat by Pulse 98 Oximetry Medical Decision Making - Lab Data Result diagrams: 10/15/24 13:34 10/15/24 13:34 <Laureano Joshua - Last Filed: 10/15/24 19:11> - Lab Data Result diagrams: 10/17/24 05:18 10/17/24 05:18 <Courtney Alva - Last Filed: 10/17/24 13:45> - Medical Decision Making Was pt. sent in by a medical professional or institution (, [facility], VETERINARY RADIOLOGIST, urgent care, hospital, or intermediate...) When possible be specific @ -No Did you speak to anyone other than the patient for history (EMS, parent, family, police, friend...)? What history was obtained from this source @ -No Did you review nursing and triage notes (agree or disagree)? Why? @ -I reviewed and agree with nursing and triage notes Were old charts reviewed (outside hosp., previous admission, EMS record, old EKG, old radiological studies, urgent care reports/EKG's, intermediate records)? Report findings @ -Charts and lab work from 09/19/2024 and 10/12/2024 reviewed Differential Diagnosis (chest pain, altered mental status, abdominal pain women, abdominal pain men, vaginal bleeding, weakness, fever, dyspnea, syncope, headache, dizziness, GI bleed, back pain, seizure, CVA, palpatations, mental health, musculoskeletal)? @ -Differential Fever: Pneumonia, viral URI, endocarditis, myocarditis, pericarditis, otitis, sinusitis, peritonsillar Abscess, retropharyngeal Abscess, epiglottitis, peritonitis, appendicitis, Halina cystitis, diverticulitis, hepatitis, colitis, UTI, PID, TOA, pyelonephritis, prostatitis, epididymitis, meningitis, encephalitis, pulmonary embolism, CVA, thyroid storm, pancreatitis, adrenal crisis, cavernous sinus thrombosis, this is not meant to be an all-inclusive list. EKG interpreted by me (3pts min.). @ -Not done X-rays interpreted by me (1pt min.). @ -CXR shows no acute cardiopulmonary infiltrate or process. CT interpreted by me (1pt min.). @ -None done U/S interpreted by me (1pt. min.). @ -Complete abdominal ultrasound was unremarkable. What testing was considered but not performed or refused? (CT, X-rays, U/S, labs)? Why? @ -None What meds were considered but not given or refused? Why? @ -None Did you discuss the management of the patient with other professionals (anika sibley i.e. , [facility], VETERINARY RADIOLOGIST, lab, RT, psych nurse, social worker school, medical case manager, teacher, chief operating officer, medical case manager)? Give summary @ -Spoke to Dr. Ley from [facility] who advised consult to surgery, SALES MARKETING DIRECTOR, neurology and I&D. Was smoking cessation discussed for >3mins.? @ -No Was critical care preformed (if so, how long)? @ -No Were there social determinants of health that impacted care today? How? (Homelessness, low income, unemployed, alcoholism, drug addiction, transportation, low edu. Level, literacy, decrease access to med. care, penitentiary, rehab)? @ -No Was there de-escalation of care discussed even if they declined (Discuss DNR or withdrawal of care, Hospice)? DNR status @ -No What co-morbidities impacted this encounter? (DM, HTN, Smoking, COPD, CAD, Cancer, CVA, ARF, Chemo, Hep., AIDS, mental health diagnosis, sleep apnea, morbid obesity)? @ -None Was patient admitted / discharged? Hospital course, mention meds given and route, prescriptions, significant lab abnormalities, going to OR and other pertinent info. @ -Lab work shows critically low WBC 1.2 with neutrophil 0.80. Hyponatremia 129 and mildly elevated liver enzymes. Quantitative hCG 20.4 which is less than previous hCG of 20.8 on 10/12/2024. UA shows large amount of blood and some proteinuria but no indication of UTI. Cepheid strep test negative. CXR shows no acute cardiopulmonary infiltrate or process. Complete abdominal ultrasound was unremarkable. Patient initially provided IV normal saline, Toradol, Reglan, Benadryl and p.o. Tylenol. Following labs patient started on IV Rocephin, van comycin and acyclovir. Spoke to Dr. Ley from [facility] who advised consult to surgery, SALES MARKETING DIRECTOR, neurology and I&D.. Discussed patient with Dr. Alva. Undiagnosed new problem with uncertain prognosis? @ -Neutropenia with constitutional symptoms Drug Therapy requiring intensive monitoring for toxicity (Heparin, Nitro, Insulin, Cardizem)? @ -No Were any procedures done? @ -No Diagnosis/symptom? @ -Neutropenia Acute, or Chronic, or Acute on Chronic? @ -Acute Uncomplicated (without systemic symptoms) or Complicated (systemic symptoms)? @ -Complicated Side effects of treatment? @ -No Exacerbation, Progression, or Severe Exacerbation? @ -No Poses a threat to life or bodily function? How? (Chest pain, [place], [place], pneumonia, PE, COPD, DKA, ARF, appy, cholecystitis, CVA, Diverticulitis, Homicidal, Suicidal, threat to staff... and all critical care pts) @ -No (Laureano Joshua) - Lab Data Lab Results 10/15/24 10/15/24 10/15/24 Range/Units 12:02 13:34 13:34 WBC 1.2 L* (3.8-10.6) k/uL RBC 4.16 (3.80-5.40) m/uL Hgb 12.6 (11.4-16.0) gm/dL Hct 37.2 (34.0-46.0) % MCV 89.2 (80.0-100.0) fL MCH 30.2 (25.0-35.0) pg MCHC 33.8 (31.0-37.0) g/dL RDW 11.3 L (11.5-15.5) % Plt Count 72 L D (150-450) k/uL MPV 10.9 Neutrophils % Not Reportable Neutrophils % (Manual) 68 % Band Neuts % (Manual) 2 % Lymphocytes % Not Reportable Lymphocytes % (Manual) 28 % Monocytes % Not Reportable Monocytes % (Manual) 2 % Eosinophils % Not Reportable Basophils % Not Reportable Neutrophils # Not Reportable Neutrophils # (Manual) 0.80 L (1.3-7.7) k/uL Lymphocytes # Not Reportable Lymphocytes # (Manual) 0.34 L (1.0-4.8) k/uL Monocytes # Not Reportable Monocytes # (Manual) 0.02 (0-1.0) k/uL Eosinophils # Not Reportable Basophils # Not Reportable Nucleated RBCs 0 (0-0) /100 WBC Manual Slide Review Performed Sodium (137-145) mmol/L Potassium (3.5-5.1) mmol/L Chloride (98-107) mmol/L Carbon Dioxide (22-30) mmol/L Anion Gap mmol/L BUN (7-17) mg/dL Creatinine (0.52-1.04) mg/dL Est GFR (CKD-EPI)AfAm (>60 ml/min/1.73 sqM) Est GFR (CKD-EPI)NonAf (>60 ml/min/1.73 sqM) Glucose (74-99) mg/dL Plasma Lactic Acid Deep (0.7-2.0) mmol/L Calcium (8.4-10.2) mg/dL Total Bilirubin (0.2-1.3) mg/dL AST (14-36) U/L ALT (4-34) U/L Alkaline Phosphatase (38-126) U/L Total Protein (6.3-8.2) g/dL Albumin (3.5-5.0) g/dL Lipase (23-300) U/L HCG, Qual HCG, Quant mIU/mL Urine Color Yellow Urine Appearance Cloudy H (Clear) Urine pH 6.0 (5.0-8.0) Ur Specific Bulan 1.028 (1.001-1.035) Urine Protein 2+ H (Negative) Urine Glucose (UA) Negative (Negative) Urine Ketones Negative (Negative) Urine Blood Large H (Negative) Urine Nitrite Negative (Negative) Urine Bilirubin Negative (Negative) Urine Urobilinogen 12.0 (<2.0) mg/dL Ur Leukocyte Esterase Negative (Negative) Urine RBC 14 H (0-5) /hpf Urine WBC 4 (0-5) /hpf Ur Squamous Epith Cells 2 (0-4) /hpf Urine Bacteria Rare H (None) /hpf Urine Mucus Occasional H (None) /hpf Influenza Type A (PCR) Not Detected (Not Detectd) Influenza Type B (PCR) Not Detected (Not Detectd) RSV (PCR) Not Detected (Not Detectd) SARS-CoV-2 (PCR) Not Detected (Not Detectd) Group A Strep (PCR) (Not Detectd) 10/15/24 10/15/24 10/15/24 Range/Units 13:34 13:34 13:34 WBC (3.8-10.6) k/uL RBC (3.80-5.40) m/uL Hgb (11.4-16.0) gm/dL Hct (34.0-46.0) % MCV (80.0-100.0) fL MCH (25.0-35.0) pg MCHC (31.0-37.0) g/dL RDW (11.5-15.5) % Plt Count (150-450) k/uL MPV Neutrophils % Neutrophils % (Manual) % Band Neuts % (Manual) % Lymphocytes % Lymphocytes % (Manual) % Monocytes % Monocytes % (Manual) % Eosinophils % Basophils % Neutrophils # Neutrophils # (Manual) (1.3-7.7) k/uL Lymphocytes # Lymphocytes # (Manual) (1.0-4.8) k/uL Monocytes # Monocytes # (Manual) (0-1.0) k/uL Eosinophils # Basophils # Nucleated RBCs (0-0) /100 WBC Manual Slide Review Sodium 129 L (137-145) mmol/L Potassium 3.8 (3.5-5.1) mmol/L Chloride 98 (98-107) mmol/L Carbon Dioxide 25 (22-30) mmol/L Anion Gap 6 mmol/L BUN 9 (7-17) mg/dL Creatinine 0.79 (0.52-1.04) mg/dL Est GFR (CKD-EPI)AfAm >90 (>60 ml/min/1.73 sqM) Est GFR (CKD-EPI)NonAf >90 (>60 ml/min/1.73 sqM) Glucose 93 (74-99) mg/dL Plasma Lactic Acid Deep 0.9 (0.7-2.0) mmol/L Calcium 8.1 L (8.4-10.2) mg/dL Total Bilirubin 0.8 (0.2-1.3) mg/dL AST 66 H (14-36) U/L ALT 36 H (4-34) U/L Alkaline Phosphatase 52 (38-126) U/L Total Protein 6.3 (6.3-8.2) g/dL Albumin 3.7 (3.5-5.0) g/dL Lipase 95 (23-300) U/L HCG, Qual HCG, Quant mIU/mL Urine Color Urine Appearance (Clear) Urine pH (5.0-8.0) Ur Specific Bulan (1.001-1.035) Urine Protein (Negative) Urine Glucose (UA) (Negative) Urine Ketones (Negative) Urine Blood (Negative) Urine Nitrite (Negative) Urine Bilirubin (Negative) Urine Urobilinogen (<2.0) mg/dL Ur Leukocyte Esterase (Negative) Urine RBC (0-5) /hpf Urine WBC (0-5) /hpf Ur Squamous Epith Cells (0-4) /hpf Urine Bacteria (None) /hpf Urine Mucus (None) /hpf Influenza Type A (PCR) (Not Detectd) Influenza Type B (PCR) (Not Detectd) RSV (PCR) (Not Detectd) SARS-CoV-2 (PCR) (Not Detectd) Group A Strep (PCR) NOT DETECTED (Not Detectd) 10/15/24 10/15/24 10/15/24 Range/Units 13:34 13:34 13:34 WBC (3.8-10.6) k/uL RBC (3.80-5.40) m/uL Hgb (11.4-16.0) gm/dL Hct (34.0-46.0) % MCV (80.0-100.0) fL MCH (25.0-35.0) pg MCHC (31.0-37.0) g/dL RDW (11.5-15.5) % Plt Count (150-450) k/uL MPV Neutrophils % Neutrophils % (Manual) % Band Neuts % (Manual) % Lymphocytes % Lymphocytes % (Manual) % Monocytes % Monocytes % (Manual) % Eosinophils % Basophils % Neutrophils # Neutrophils # (Manual) (1.3-7.7) k/uL Lymphocytes # Lymphocytes # (Manual) (1.0-4.8) k/uL Monocytes # Monocytes # (Manual) (0-1.0) k/uL Eosinophils # Basophils # Nucleated RBCs (0-0) /100 WBC Manual Slide Review Sodium (137-145) mmol/L Potassium (3.5-5.1) mmol/L Chloride (98-107) mmol/L Carbon Dioxide (22-30) mmol/L Anion Gap mmol/L BUN (7-17) mg/dL Creatinine (0.52-1.04) mg/dL Est GFR (CKD-EPI)AfAm (>60 ml/min/1.73 sqM) Est GFR (CKD-EPI)NonAf (>60 ml/min/1.73 sqM) Glucose (74-99) mg/dL Plasma Lactic Acid Deep (0.7-2.0) mmol/L Calcium (8.4-10.2) mg/dL Total Bilirubin (0.2-1.3) mg/dL AST (14-36) U/L ALT (4-34) U/L Alkaline Phosphatase (38-126) U/L Total Protein (6.3-8.2) g/dL Albumin (3.5-5.0) g/dL Lipase (23-300) U/L HCG, Qual Detected HCG, Quant 20.4 mIU/mL Urine Color Urine Appearance (Clear) Urine pH (5.0-8.0) Ur Specific Bulan (1.001-1.035) Urine Protein (Negative) Urine Glucose (UA) (Negative) Urine Ketones (Negative) Urine Blood (Negative) Urine Nitrite (Negative) Urine Bilirubin (Negative) Urine Urobilinogen (<2.0) mg/dL Ur Leukocyte Esterase (Negative) Urine RBC (0-5) /hpf Urine WBC (0-5) /hpf Ur Squamous Epith Cells (0-4) /hpf Urine Bacteria (None) /hpf Urine Mucus (None) /hpf Influenza Type A (PCR) Not Detected (Not Detectd) Influenza Type B (PCR) Not Detected (Not Detectd) RSV (PCR) Not Detected (Not Detectd) SARS-CoV-2 (PCR) Not Detected (Not Detectd) Group A Strep (PCR) (Not Detectd) 10/15/24 Range/Units 15:52 WBC (3.8-10.6) k/uL RBC (3.80-5.40) m/uL Hgb (11.4-16.0) gm/dL Hct (34.0-46.0) % MCV (80.0-100.0) fL MCH (25.0-35.0) pg MCHC (31.0-37.0) g/dL RDW (11.5-15.5) % Plt Count (150-450) k/uL MPV Neutrophils % Neutrophils % (Manual) % Band Neuts % (Manual) % Lymphocytes % Lymphocytes % (Manual) % Monocytes % Monocytes % (Manual) % Eosinophils % Basophils % Neutrophils # Neutrophils # (Manual) (1.3-7.7) k/uL Lymphocytes # Lymphocytes # (Manual) (1.0-4.8) k/uL Monocytes # Monocytes # (Manual) (0-1.0) k/uL Eosinophils # Basophils # Nucleated RBCs (0-0) /100 WBC Manual Slide Review Sodium (137-145) mmol/L Potassium (3.5-5.1) mmol/L Chloride (98-107) mmol/L Carbon Dioxide (22-30) mmol/L Anion Gap mmol/L BUN (7-17) mg/dL Creatinine (0.52-1.04) mg/dL Est GFR (CKD-EPI)AfAm (>60 ml/min/1.73 sqM) Est GFR (CKD-EPI)NonAf (>60 ml/min/1.73 sqM) Glucose (74-99) mg/dL Plasma Lactic Acid Deep 0.8 (0.7-2.0) mmol/L Calcium (8.4-10.2) mg/dL Total Bilirubin (0.2-1.3) mg/dL AST (14-36) U/L ALT (4-34) U/L Alkaline Phosphatase (38-126) U/L Total Protein (6.3-8.2) g/dL Albumin (3.5-5.0) g/dL Lipase (23-300) U/L HCG, Qual HCG, Quant mIU/mL Urine Color Urine Appearance (Clear) Urine pH (5.0-8.0) Ur Specific Bulan (1.001-1.035) Urine Protein (Negative) Urine Glucose (UA) (Negative) Urine Ketones (Negative) Urine Blood (Negative) Urine Nitrite (Negative) Urine Bilirubin (Negative) Urine Urobilinogen (<2.0) mg/dL Ur Leukocyte Esterase (Negative) Urine RBC (0-5) /hpf Urine WBC (0-5) /hpf Ur Squamous Epith Cells (0-4) /hpf Urine Bacteria (None) /hpf Urine Mucus (None) /hpf Influenza Type A (PCR) (Not Detectd) Influenza Type B (PCR) (Not Detectd) RSV (PCR) (Not Detectd) SARS-CoV-2 (PCR) (Not Detectd) Group A Strep (PCR) (Not Detectd) Disposition Is patient prescribed a controlled substance at d/c from ED?: No Time of Disposition: 15:37 Decision Date: 10/15/24 Decision Time: 15:37 <Laureano Joshua - Last Filed: 10/15/24 19:11> <Courtney Alva - Last Filed: 10/17/24 13:45> Clinical Impression: Neutropenia, Headache Narrative: ANC count dropped from 1.8 to 0.80 from 10/12/2024 to 10/15/2024 (Laureano Joshua) Disposition: ADMITTED IP TO THIS HOSP Condition: Fair
[2024-10-15] MEDS: ACETAMINOPHEN TAB 325 MG TAB PO STA (13:34)
[2024-10-15] MEDS: SODIUM CHLORIDE 0.9% 1,000 ML IV STA (13:34)
[2024-10-15] MEDS: KETOROLAC 15 MG/ML 1 ML VIAL IVP STA (13:36)
[2024-10-15] MEDS: METOCLOPRAMIDE 5 MG/ML 2 ML VIAL IVP STA (13:38)
[2024-10-15] MEDS: diphenhydrAMINE 50 MG/ML 1 ML VIAL IVP STA (13:41)
[2024-10-15 13:56] LABS: HCT 37.2 % (34.0-46.0); HGB 12.6 gm/dL (11.4-16.0); MCH 30.2 pg (25.0-35.0); MCHC 33.8 g/dL (31.0-37.0); MCV 89.2 fL (80.0-100.0); Mean Platelet Volume 10.9; RBC 4.16 m/uL (3.80-5.40); RDW 11.3 % (11.5-15.5)
[2024-10-15 14:06] LABS: ALT 36 U/L (4-34); AST 66 U/L (14-36); African American GFR (CKD) >90 (>60 ml/min/1.73 sqM); Albumin 3.7 g/dL (3.5-5.0); Alkaline Phosphatase 52 U/L (38-126); Anion Gap 6 mmol/L; Blood Urea Nitrogen 9 mg/dL (7-17); Calcium 8.1 mg/dL (8.4-10.2); Carbon Dioxide 25 mmol/L (22-30); Chloride 98 mmol/L (98-107); Glucose 93 mg/dL (74-99); Lipase 95 U/L (23-300); Non-African American GFR(CKD) >90 (>60 ml/min/1.73 sqM); Potassium 3.8 mmol/L (3.5-5.1); Sodium 129 mmol/L (137-145); Total Bilirubin 0.8 mg/dL (0.2-1.3); Total Protein 6.3 g/dL (6.3-8.2)
[2024-10-15 14:11] LABS: WBC 1.2 k/uL (3.8-10.6)
[2024-10-15 14:20] LABS: Influenza A Not Detected (Not Detectd); Influenza B Not Detected (Not Detectd); RSV Not Detected (Not Detectd)
[2024-10-15 14:32] LABS: Appearance,Urine Cloudy (Clear); Bacteria,Urine Rare /hpf; Bilirubin,Urine Negative (Negative); Blood,Urine Large (Negative); Color,Urine Yellow; Glucose,Urine (UA) Negative (Negative); Ketones,Urine Negative (Negative); Leukocyte Esterase,Urine Negative (Negative); Mucus,Urine Occasional /hpf; Nitrite,Urine Negative (Negative); Protein,Urine 2+ (Negative); RBC,Urine 14 /hpf (0-5); Specific Gravity,Urine 1.028 (1.001-1.035); Squamous Epithelial Cell,Urine 2 /hpf (0-4); WBC,Urine 4 /hpf (0-5)
[2024-10-15 14:55] LABS: Band Neutrophils % 2 %; Lymphocytes # (M) 0.34 k/uL (1.0-4.8); Monocytes # (M) 0.02 k/uL (0-1.0); Neutrophils % (M) 68 %; Nucleated Red Blood Cells 0 /100 WBC (0-0); Total Cells Counted 100
[2024-10-15 14:57] LABS: Platelet Count 72 k/uL (150-450)
[2024-10-15] MEDS ORDERED: VANCOMYCIN IV PER PHARMACY 1 EACH MISC MISCELLANE PRN (15:50)
[2024-10-15] MEDS ORDERED: NALOXONE 0.4 MG/ML 1 ML VIAL IV PRN (15:54)
[2024-10-15] MEDS: SODIUM CHLORIDE 0.9% 1,000 ML IV SCH (16:08)
--- NOTE | 2024-10-15 16:54 | US ---
EXAMINATION TYPE: US abdomen complete DATE OF EXAM: 10/15/2024 COMPARISON: NONE CLINICAL INDICATION: Female, 19 years old with history of Diffuse abdominal pain; pain TECHNIQUE: Grayscale and color Doppler imaging of the abdomen was performed. FINDINGS: EXAM MEASUREMENTS: Liver Length: 14.7 cm Gallbladder Wall: .2 cm CBD: .3 cm, color Doppler imaging was utilized to isolate the common bile duct for measurement. 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 Gallbladder: No stones seen Evidence for sonographic Tesfaye's sign: No CBD: wnl Spleen: wnl Right Kidney: wnl, No hydronephrosis, calculi or masses seen Left Kidney: wnl, No hydronephrosis, calculi or masses seen Upper IVC: wnl Abd Aorta: wnl The liver is homogenous. The intrahepatic portion of the IVC and proximal abdominal aorta are within normal limits. There is no evidence of cholelithiasis. Common bile duct is unremarkable. The visu alized portions of the pancreas are homogenous. The spleen is unremarkable. Kidneys are symmetric a nd free of hydronephrosis. No renal lesions are seen. IMPRESSION: Unremarkable abdominal ultrasound. [facility], , 10/15/2024 4:52 PM
[2024-10-15] MEDS: ACYCLOVIR SODIUM 500 MG in SODIUM CHLORIDE 0.9% 100 ML IVPB SCH (17:37)
[2024-10-15] MEDS ORDERED: ACYCLOVIR 400 MG/10 ML CUP PO SCH (18:00)
[2024-10-15] MEDS: VANCOMYCIN 1,000 MG in SODIUM CHLORIDE 0.9% 250 ML IVPB ONE (20:39)
[2024-10-16] MEDS: ACETAMINOPHEN IV (For NPO) 1,000 MG in EMPTY BAG 1 BAG IVPB ONE ×2 (00:43→06:54)
[2024-10-16] MEDS: diphenhydrAMINE 50 MG/ML 1 ML VIAL IVP STA (02:38)
--- NOTE | 2024-10-16 05:24 | P.CONS ---
History of Present Illness - Reason for Consult Consult date: 10/15/24 Neutropenia Requesting physician: Laureano Joshua - Chief Complaint Fever generalized bodyaches x days - History of Present Illness Patient is a 19-year-old female who is status post medically induced on 09/05/2024 with recent multiple visits to the ER on 09/11/2024 she was diagnosed with a UTI and discharged on Macrobid now presenting back to the [facility] concerning for fever generalized bodyaches headache and nausea patient describing her headache to be moderate intensity throbbing with associated nausea but no vomiting denies having any chest pain shortness of breath or cough has been complaining of lower abdominal pain mostly dull aching and moderate intensity denies having any diarrhea or constipation no significant burning or frequency of urine on presentation to the hospital patient did have a temperature of 101 F patient was tachycardic but not hypotensive or hypoxic and no need for supplemental oxygen patient was noticed to have a white count of 1.2 platelet count is 72 creatinine 0.79 sodium is 129 liver enzymes mildly elevated urine shows 1-14 RBC no WBC influenza RSV COVID testing was negative she also tested negative for gonorrhea and chlamydia on her visit on 09/11/2024 patient received a dose of Rocephin in the ER subsequent has been started on acyclovir vancomycin infectious disease was consulted for neutropenia patient did have a serum hCG of 20.8 which was 613 on 09/19/2024 Review of Systems Positive point and negatives has been mentioned in the HPI, complete review of systems was performed and all other systems are negative Past Medical History Past Medical History: No Reported History History of Any Multi-Drug Resistant Organisms: None Reported Past Surgical History: No Surgical Hx Reported Past Psychological History: No Psychological Hx Reported Smoking Status: Vaper Past Alcohol Use History: None Reported Past Drug Use History: None Reported Medications and Allergies Home Medications Medication Instructions Recorded Confirmed Type Acetaminophen Tab [Tylenol] 500 mg PO Q6H PRN 10/15/24 10/15/24 History Ibuprofen 400 mg PO Q8H PRN #40 tablet 10/21/24 Rx cefuroxime axetiL [Ceftin] 500 mg PO BID 7 Days #14 tab 10/21/24 Rx metroNIDAZOLE [Flagyl] 500 mg PO TID 7 Days #21 tab 10/21/24 Rx Allergies Allergy/AdvReac Type Severity Reaction Status Date / Time No Known Allergies Allergy Verified 10/15/24 16:09 Physical Exam Vitals: Vital Signs Temp Pulse Resp BP Pulse Ox 10/15/24 16:10 98.7 F 83 18 101/67 99 10/15/24 14:34 98.9 F 96 18 97 10/15/24 11:57 101.1 F H 125 H 20 96/55 98 Intake and Output 10/15/24 10/15/24 10/15/24 06:59 14:59 22:59 Other: Weight 49.895 kg GENERAL DESCRIPTION: Young female lying in bed, no distress. No tachypnea or accessory muscle of respiration use. HEENT: Shows Pallor , no scleral icterus. Oral mucous membrane is dry. No pharyngeal erythema or thrush NECK: Trachea central, no thyromegaly. LUNGS: Unlabored breathing. Clear to auscultation anteriorly. No wheeze or crackle. HEART: S1, S2, regular rate and rhythm. No loud murmur ABDOMEN: Soft, mild lower abdominal tenderness with no guarding or rigidity EXTREMITIES: No edema of feet. SKIN: No rash, no masses palpable. NEUROLOGICAL: The patient is awake, alert, oriented x3, mood and affect normal. Results CBC & Chem 7: 10/21/24 06:57 10/21/24 06:57 Labs: Abnormal Lab Results - Last 24 Hours (Table) 10/15/24 10/15/24 10/15/24 Range/Units 13:34 13:34 13:34 WBC 1.2 L* (3.8-10.6) k/uL RDW 11.3 L (11.5-15.5) % Plt Count 72 L D (150-450) k/uL Neutrophils # (Manual) 0.80 L (1.3-7.7) k/uL Lymphocytes # (Manual) 0.34 L (1.0-4.8) k/uL Sodium 129 L (137-145) mmol/L Calcium 8.1 L (8.4-10.2) mg/dL AST 66 H (14-36) U/L ALT 36 H (4-34) U/L Urine Appearance Cloudy H (Clear) Urine Protein 2+ H (Negative) Urine Blood Large H (Negative) Urine RBC 14 H (0-5) /hpf Urine Bacteria Rare H (None) /hpf Urine Mucus Occasional H (None) /hpf Assessment and Plan (1) Sepsis Status: Acute Priority: High Code(s): A41.9 - SEPSIS, UNSPECIFIED ORGANISM SNOMED Code(s): 55905527 (2) Neutropenia Status: Acute Code(s): D70.9 - NEUTROPENIA, UNSPECIFIED SNOMED Code(s): 191589548 Plan: 1patient presented hospital with sepsis in this patient did have fever tachycardia and leukopenia meeting criteria for SIRS source questionable abdominal versus central nervous system in this patient who did have both abdominal pain with recently medically induced and concern for possible retained products of conception as well as headache but no significant neck rigidity was noticed 2we will wait for the abdominal ultrasound to be completed to make sure no evidence of any retained products of conception 3patient will benefit from LP, await neurology evaluation 4we will add Rocephin and Flagyl to the current antibiotic regimen while wait ing for the workup to be completed We will follow on clinical condition and cultures to further adjust medication if needed Thank you for this consultation we will follow the patient along with you Dictation was produced using [employer] dictation software. please excuse any grammatical, word or spelling errors. Time with Patient: Greater than 30
[2024-10-16] MEDS: VANCOMYCIN 1,000 MG in SODIUM CHLORIDE 0.9% 250 ML IVPB SCH (06:30)
[2024-10-16] MEDS ORDERED: metroNIDAZOLE-NS PMX 500 MG in SALINE 1 100ML.BAG IVPB SCH (08:00)
[2024-10-16 09:06] LABS: ALT 32 U/L (8-44); AST 58 U/L (13-35); Albumin 3.3 g/dL (3.8-4.9); Albumin/Globulin Ratio 1.65 Ratio (1.60-3.17); Alkaline Phosphatase 51 U/L (41-126); BUN/Creat Ratio 9.12 Ratio (12.00-20.00); Blood Urea Nitrogen 7.3 mg/dL (9.0-27.0); Calcium 7.6 mg/dL (8.7-10.3); Carbon Dioxide 21.8 mmol/L (21.6-31.8); Chloride 101 mmol/L (96-109); Glucose 96 mg/dL (70-110); Potassium 3.8 mmol/L (3.5-5.5); Sodium 133 mmol/L (135-145); Total Bilirubin 0.4 mg/dL (0.3-1.2); Total Protein 5.3 g/dL (6.2-8.2)
--- NOTE | 2024-10-16 09:29 | US ---
EXAMINATION TYPE: US pelvic complete DATE OF EXAM: 10/16/2024 COMPARISON: NONE CLINICAL INDICATION: Female, 19 years old with history of Fever , Retained product of conception; pat ient had elective ab Mar 2024 and Sep [id number] (was 10 wks), bleeding stopped and recently started ag ain, in hospital for UTI and fever, mild pelvic pain TECHNIQUE: TA. Transabdominal grayscale sonographic images of the pelvis Doppler imaging: Not performed. FINDINGS: Date of LMP: unknown EXAM MEASUREMENTS: Uterus: 8.9 x 5.2 x 3.2 cm Endometrial Stripe: 0.3 cm Right Ovary: 3.0 x 1.6 x 1.7 cm Left Ovary: 4.1 x 4.2 x 3.0 cm 1. Uterus: Anteverted wnl 2. Endometrium: wnl 3. Right Ovary: wnl 4. Left Ovary: 3.6 x 3.6 x 2.3cm simple appearing cyst 5. Bilateral Adnexa: wnl 6. Posterior cul-de-sac: wnl Heterogeneous uterus. Endometrial stripe measures 3 mm without significant vascularity. No free fluid in the pelvis. Incidental 3.6 cm simple appearing thin-walled cyst in the left ovary is noted. IMPRESSION: No sonographic evidence for retained products of conception. [facility], , 10/16/2024 9:26 AM
[2024-10-16 09:37] LABS: Basophils # (A) 0.01 X 10*3/uL (0.00-0.10); Basophils % (A) 0.4 %; Eosinophils # (A) 0 X 10*3/uL (0.04-0.35); Eosinophils % (A) 0 %; HCT 30.8 % (37.2-46.3); HGB 10.6 g/dL (12.0-15.0); Immature Platelet Fraction 15.6 % (1.1-6.1); Lymphocytes # (A) 0.18 X 10*3/uL (0.90-5.00); Lymphocytes % (A) 7.8 %; MCH 30.2 pg (27.0-32.0); MCHC 34.4 g/dL (32.0-37.0); MCV 87.7 FL (80.0-97.0); Monocytes # (A) 0.09 X 10*3/uL (0.20-1.00); Monocytes % (A) 3.9 %; NRBC Per 100 WBC 0 X 10*3/uL (0.00-0.01); Platelet Count 60 X 10*3/uL (140-440); RBC 3.51 X 10*6/uL (4.10-5.20); RDW 11.5 % (11.5-14.5)
[2024-10-16] MEDS: metroNIDAZOLE-NS PMX 500 MG in SALINE 1 100ML.BAG IVPB SCH (09:50)
--- NOTE | 2024-10-16 11:31 | MR ---
EXAMINATION TYPE: MR MRA/MRV head wo con DATE OF EXAM: 10/16/2024 COMPARISON: NONE HISTORY: Severe headache. TECHNIQUE: Time of flight images focusing on the [place] of [place] anterior draining cerebral veins ar e performed without contrast.. 2-D and 3-D postprocessing imaging is performed on independent works tation. FINDINGS: There are codominant vertebral arteries patent to the basilar junction. There are patent bi lateral posterior communicating arteries. There is patent anterior communicating artery. No large ves omid occlusion or aneurysm at the level of the [place] of [place]hot[place] is seen. Patent superior sagittal and straight sinus. Patent bilateral transverse sinuses draining into sigmoi d sinuses poorly visualized but patent inferior sagittal sinus. Patent internal cerebral vein of Gale n. IMPRESSION: Normal MRA/MRV study. [facility], , 10/16/2024 11:29 AM
--- NOTE | 2024-10-16 11:32 | MR ---
EXAMINATION TYPE: MR brain wo con DATE OF EXAM: 10/16/2024 COMPARISON: NONE HISTORY: Severe headache TECHNIQUE: Multiplanar, multisequence imaging of the brain and brainstem is performed without IV cont rast. FINDINGS: Diffusion weighted images demonstrate no evidence of a recent infarct or other diffusion abnormality. There is no extraaxial fluid collection or significant white matter signal abnormality. The ventricu lar system and cisternal spaces are normal in size and appearance. The brain volume is age appropria te. Midline structures demonstrate normal morphology. The craniocervical junction appears within normal limits. Normal vascular flow voids are present. The visualized sinuses are clear and the globes are i ntact. IMPRESSION: Unremarkable study. [facility], , 10/16/2024 11:30 AM
[2024-10-16] MEDS: ACETAMINOPHEN TAB 325 MG TAB PO PRN (12:02)
[2024-10-16] MEDS: IOPAMIDOL CONTRAST (ORAL USE) VIAL PO PRN (12:02)
[2024-10-16] MEDS: ONDANSETRON 4 MG/2 ML VIAL IVP PRN (12:28)
--- NOTE | 2024-10-16 12:43 | P.OBCN ---
History of Present Illness Consult date: 10/16/24 Reason for consult: other (Probable sepsis, status post medical elective interruption of ) History of present illness: The patient is a 19-year-old 2 para 0-0-1-0 who presented to the hospital with generalized aches and malaise. She has a history of undergoing medical elective interruption of with Cytotec approximately 2 months ago at roughly 10 weeks of gestation. She and her partner report that she had significant heavy bleeding and passed most of the tissue immediately. Over the course of the next 2 weeks or so the bleeding significantly decreased and then stopped altogether. She reports that she began another period last week though it has not been heavy in any way. They have had only 1 episode of unprotected intercourse since the elective AB. hCG approximately 3 weeks ago in the emergency room was in the 600s. hCG 3 days ago was approximately 20.6 and repeat yesterday in the ER was approximately 20.4. She reports a little bit of ongoing bleeding at this time. There are no other focal or localizing signs or symptoms though she and her partner both relate a history of having multiple urinary tract infections over the last several months for which she has had multiple interventions with antibiotics. She denies any other significant localizing signs but does report generalized abdominal discomfort with more pain in the left upper quadrant than anywhere else. Week ultrasound was unfor tunately done only transabdominally but demonstrates no particular findings in the uterus with no evidence of retained products of conception. Though the measurement transabdominally is inaccurate, endometrial stripe thickness was noted to be 3 mm. There are no other pelvic findings of importance at this time. Obstetrical history: 2 para 0-0-1-0 with 1 elective interruption of last summer and then the current elective interruption of as noted in history of present illness. The current positive hCG is presumably from the elective interruption of that has not yet gone to 0. There is a very small chance that this could represent a new though it is likely failing if that is the case given the hCGs 3 days apart which have not changed in any significant fashion and actually have gone down slightly. Gynecologic history: Unremarkable with no history of any infections to include STDs. Review of Systems Review of systems is confined to history of present illness. Past Medical History Past Medical History: No Reported History History of Any Multi-Drug Resistant Organisms: None Reported Past Surgical History: No Surgical Hx Reported Additional Past Surgical History / Comment(s): Medical Past Psychological History: No Psychological Hx Reported Smoking Status: Vaper Past Alcohol Use History: None Reported Past Drug Use History: None Reported Medications and Allergies Home Medications Medication Instructions Recorded Confirmed Type Ibuprofen 400 mg PO Q8H PRN #30 tablet 10/12/24 10/15/24 Rx Acetaminophen Tab [Tylenol Tab] 500 mg PO Q6H PRN 10/15/24 10/15/24 History Allergies Allergy/AdvReac Type Severity Reaction Status Date / Time No Known Allergies Allergy Verified 10/15/24 16:09 Exam Vital Signs Temp Pulse Pulse Resp BP BP BP 10/16/24 12:20 100.7 F H 113 H 10/16/24 11:54 98.4 F 97 16 111/72 10/16/24 09:02 99.1 F 108 H 17 98/57 10/16/24 06:55 98.9 F 105 H 16 99/65 10/16/24 02:30 99.5 F 10/16/24 02:00 102.1 F H 111 H 16 95/58 10/15/24 19:33 97.6 F 80 16 103/70 10/15/24 17:42 98.4 F 86 20 109/73 10/15/24 16:10 98.7 F 83 18 101/67 10/15/24 14:34 98.9 F 96 18 Pulse Ox 10/16/24 12:20 10/16/24 11:54 100 10/16/24 09:02 96 10/16/24 06:55 100 10/16/24 02:30 10/16/24 02:00 97 10/15/24 19:33 100 10/15/24 17:42 98 10/15/24 16:10 99 10/15/24 14:34 97 Intake and Output 10/15/24 10/16/24 10/16/24 22:59 06:59 14:59 Intake Total 590 590 237 Balance 590 590 237 Intake: Oral 590 590 237 Other: Voiding Method Toilet Toilet # Voids 3 1 Weight 49.895 kg In general, this is a well-developed, well-nourished white female who appears uncomfortable and is actually shivering during my interview. Her abdomen is nondistended, soft, with no specific point tenderness noted though she reports generalized tenderness. There is no guarding or rebound. There are no palpable masses. Bimanual pelvic examination demonstrates normal external genitalia and BUS with normal vaginal mucosa and cervix. There is no tenderness to pressure on the bladder. There is no cervical motion tenderness. Uterus is approximately 4 to 5 weeks in size, midplane to slightly retroverted, mobile, nontender, and otherwise normal in shape. The adnexa are nonpalpable and nontender without any apparent masses bilaterally. There is a small amount of blood noted on the examination glove hand. Results Result Diagrams: 10/16/24 05:26 10/16/24 05:26 Abnormal Lab Results - Last 24 Hours (Table) 10/15/24 10/15/24 10/15/24 Range/Units 13:34 13:34 13:34 WBC 1.2 L* (3.8-10.6) k/uL RBC (4.10-5.20) X 10*6/uL Hgb (12.0-15.0) g/dL Hct (37.2-46.3) % RDW 11.3 L (11.5-15.5) % Plt Count 72 L D (150-450) k/uL MPV (9.5-12.2) FL Neutrophils # (Manual) 0.80 L (1.3-7.7) k/uL Lymphocytes # (0.90-5.00) X 10*3/uL Lymphocytes # (Manual) 0.34 L (1.0-4.8) k/uL Monocytes # (0.20-1.00) X 10*3/uL Eosinophils # (0.04-0.35) X 10*3/uL Immature Plt Fraction (1.1-6.1) % Sodium 129 L (137-145) mmol/L BUN (9.0-27.0) mg/dL BUN/Creatinine Ratio (12.00-20.00) Ratio Calcium 8.1 L (8.4-10.2) mg/dL AST 66 H (14-36) U/L ALT 36 H (4-34) U/L C-Reactive Protein (0.00-0.80) mg/dL Total Protein (6.2-8.2) g/dL Albumin (3.8-4.9) g/dL Procalcitonin (0.02-0.50) ng/mL Urine Appearance Cloudy H (Clear) Urine Protein 2+ H (Negative) Urine Blood Large H (Negative) Urine RBC 14 H (0-5) /hpf Urine Bacteria Rare H (None) /hpf Urine Mucus Occasional H (None) /hpf 10/16/24 10/16/24 10/16/24 Range/Units 05:26 05:26 05:26 WBC 2.30 L (3.8-10.6) k/uL RBC 3.51 L (4.10-5.20) X 10*6/uL Hgb 10.6 L (12.0-15.0) g/dL Hct 30.8 L (37.2-46.3) % RDW (11.5-15.5) % Plt Count 60 L (150-450) k/uL MPV 14.0 H (9.5-12.2) FL Neutrophils # (Manual) (1.3-7.7) k/uL Lymphocytes # 0.18 L (0.90-5.00) X 10*3/uL Lymphocytes # (Manual) (1.0-4.8) k/uL Monocytes # 0.09 L (0.20-1.00) X 10*3/uL Eosinophils # 0 L (0.04-0.35) X 10*3/uL Immature Plt Fraction 15.6 H (1.1-6.1) % Sodium 133 L (137-145) mmol/L BUN 7.3 L (9.0-27.0) mg/dL BUN/Creatinine Ratio 9.12 L (12.00-20.00) Ratio Calcium 7.6 L (8.4-10.2) mg/dL AST 58 H (14-36) U/L ALT (4-34) U/L C-Reactive Protein 13.80 H (0.00-0.80) mg/dL Total Protein 5.3 L (6.2-8.2) g/dL Albumin 3.3 L (3.8-4.9) g/dL Procalcitonin 0.52 H (0.02-0.50) ng/mL Urine Appearance (Clear) Urine Protein (Negative) Urine Blood (Negative) Urine RBC (0-5) /hpf Urine Bacteria (None) /hpf Urine Mucus (None) /hpf Assessment and Plan (1) Status post elective Current Visit: Yes Status: Acute Code(s): Z98.890 - OTHER SPECIFIED POSTPROCEDURAL STATES SNOMED Code(s): 178502481 (2) Sepsis Current Visit: Yes Status: Acute Code(s): A41.9 - SEPSIS, UNSPECIFIED ORGANISM SNOMED Code(s): 42472658 Plan: I have discussed the case fairly extensively with Dr. Ross from infectious disease. I do not feel that there is any significant chance of this representing a septic but do note that she has more than adequate coverage should that be the case. It is imperative to continue to follow her hormone level down to 0 and I have ordered a repeat beta-hCG for tomorrow. I do not feel that D&C at this time is indicated. There is no focal evidence for a source for the potential sepsis which does appear to be the correct diagnosis at this time. I concur with infectious disease in terms of continuing very broad-spectrum coverage until a source can be identified and more specifically treated. It is unclear whether or not multiple courses of antibiotics for urinary tract infections over the last several months may have contributed to the current situation. CT scan of the abdomen and pelvis which has been ordered may be of value and I think it is necessary despite the possi bility of an early normal intrauterine (extraordinarily low likelihood). I will continue to follow at a distance. Thank you for the consult.
--- NOTE | 2024-10-16 13:37 | P.GSCN ---
History of Present Illness Consult date: 10/16/24 History of present illness: CHIEF COMPLAINT: Abdominal pain with nausea, headache and fever HISTORY OF PRESENT ILLNESS: This is a 19-year-old female who reports that she has felt sick for the past 3 days. Her symptoms include headache, fever, body aches, abdominal pain, nausea and decreased appetite. Patient describes the abdominal pain across the upper abdomen as well as in her back. She reports has been having diarrhea. She did have a fever of 102 on admission was mildly tachycardic and hypotensive. She is neutropenic. Patient denies any prior history of neutropenia. Partner is at bedside and reports that she has had frequent urinary tract infections. Patient had a medically induced on September 05, 2024 and was recently in the ER in September 11, 2024 for urinary tract infection. Patient does also have a diffuse rash on her body. Patient f ollowed by infectious disease, she is on antibiotics. She was also seen by [employer] service and neurology. Surgical service has been consulted in regards to abdominal pain. [employer] consult recommendations noted. PAST MEDICAL HISTORY: Recurrent UTIs PAST SURGICAL HISTORY: Medical MEDICATIONS: See below ALLERGIES: See below SOCIAL HISTORY: No illicit drug use. REVIEW OF SYSTEMS: CONSTITUTIONAL: Denies fever or chills. HEENT: Denies blurred vision, vision changes, or eye pain. Denies hemoptysis CARDIOVASCULAR: Denies chest pain or pressure. RESPIRATORY: No shortness of breath. GASTROINTESTINAL: See HPI for pertinent findings HEMATOLOGIC: Denies bleeding disorders. GENITOURINARY: Denies any blood in urine or increased urinary frequency. SKIN: Denies pruitis. Denies rash. PHYSICAL EXAM: VITAL SIGNS: Reviewed GENERAL: Well-developed in no acute distress. HEENT: No sclera icterus. Extraocular movements grossly intact. Moist buccal mucosa. Head is atraumatic, normocephalic. No nasal drainage. ABDOMEN: Soft. Nondistended. Nontender. No guarding or rebound NEUROLOGIC: Alert and oriented. Cranial nerves II through XII grossly intact. SKIN: Diffuse rash abdomen back extremities and a few areas on her face LABORATORY DATA: WBC is 1.2 up to 2.30 Hgb 10.6 platelets 60 Sodium is 133 potassium 3.8 creatinine 0.8 Lactic acid 0.7 Total bilirubin 0.4 AST 66 down to 58 ALT 36 down to 32 alk phos 51 CRP 13.8 lipase 95 urine hCG detected, quantitative 20.4 Influenza, RSV, COVID-19 and group A strep not detected IMAGING: Abdominal ultrasound unremarkable Pelvic ultrasound no sonographic evidence for retained products of conception Brain MRI/MRA unremarkable ASSESSMENT: 1. Abdominal pain with nausea, fever, headache and bodyaches, diffuse rash 2. Evidence of sepsis present on admission. Fever, tachycardic, hypotensive and neutropenic 3. Status post elective September 05, 2024 PLAN: -CT scan abdomen and pelvis ordered for further evaluation of patient's abdominal pain -Continue antibiotics per ID service -Continue supportive care Physician [employer] Supervisor note has been reviewed by physician. Signing provider agrees with the documented findings, assessment, and plan of care. Past Medical History Past Medical History: No Reported History History of Any Multi-Drug Resistant Organisms: None Reported Past Surgical History: No Surgical Hx Reported Additional Past Surgical History / Comment(s): Medical Past Psychological History: No Psychological Hx Reported Smoking Status: Vaper Past Alcohol Use History: None Reported Past Drug Use History: None Reported Medications and Allergies Home Medications Medication Instructions Recorded Confirmed Type Ibuprofen 400 mg PO Q8H PRN #30 tablet 10/12/24 10/15/24 Rx Acetaminophen Tab [Tylenol Tab] 500 mg PO Q6H PRN 10/15/24 10/15/24 History Allergies Allergy/AdvReac Type Severity Reaction Status Date / Time No Known Allergies Allergy Verified 10/15/24 16:09 Surgical - Exam Vital Signs Temp Pulse Resp BP Pulse Ox 101.1 F H 125 H 20 96/55 98 10/15/24 11:57 10/15/24 11:57 10/15/24 11:57 10/15/24 11:57 10/15/24 11:57 Results - Labs 10/16/24 05:26 10/16/24 05:26 Abnormal Lab Results - Last 24 Hours (Table) 10/15/24 10/15/24 10/15/24 Range/Units 13:34 13:34 13:34 WBC 1.2 L* (3.8-10.6) k/uL RBC (4.10-5.20) X 10*6/uL Hgb (12.0-15.0) g/dL Hct (37.2-46.3) % RDW 11.3 L (11.5-15.5) % Plt Count 72 L D (150-450) k/uL MPV (9.5-12.2) FL Neutrophils # (Manual) 0.80 L (1.3-7.7) k/uL Lymphocytes # (0.90-5.00) X 10*3/uL Lymphocytes # (Manual) 0.34 L (1.0-4.8) k/uL Monocytes # (0.20-1.00) X 10*3/uL Eosinophils # (0.04-0.35) X 10*3/uL Immature Plt Fraction (1.1-6.1) % Sodium 129 L (137-145) mmol/L BUN (9.0-27.0) mg/dL BUN/Creatinine Ratio (12.00-20.00) Ratio Calcium 8.1 L (8.4-10.2) mg/dL AST 66 H (14-36) U/L ALT 36 H (4-34) U/L C-Reactive Protein (0.00-0.80) mg/dL Total Protein (6.2-8.2) g/dL Albumin (3.8-4.9) g/dL Procalcitonin (0.02-0.50) ng/mL Urine Appearance Cloudy H (Clear) Urine Protein 2+ H (Negative) Urine Blood Large H (Negative) Urine RBC 14 H (0-5) /hpf Urine Bacteria Rare H (None) /hpf Urine Mucus Occasional H (None) /hpf 10/16/24 10/16/24 10/16/24 Range/Units 05:26 05:26 05:26 WBC 2.30 L (3.8-10.6) k/uL RBC 3.51 L (4.10-5.20) X 10*6/uL Hgb 10.6 L (12.0-15.0) g/dL Hct 30.8 L (37.2-46.3) % RDW (11.5-15.5) % Plt Count 60 L (150-450) k/uL MPV 14.0 H (9.5-12.2) FL Neutrophils # (Manual) (1.3-7.7) k/uL Lymphocytes # 0.18 L (0.90-5.00) X 10*3/uL Lymphocytes # (Manual) (1.0-4.8) k/uL Monocytes # 0.09 L (0.20-1.00) X 10*3/uL Eosinophils # 0 L (0.04-0.35) X 10*3/uL Immature Plt Fraction 15.6 H (1.1-6.1) % Sodium 133 L (137-145) mmol/L BUN 7.3 L (9.0-27.0) mg/dL BUN/Creatinine Ratio 9.12 L (12.00-20.00) Ratio Calcium 7.6 L (8.4-10.2) mg/dL AST 58 H (14-36) U/L ALT (4-34) U/L C-Reactive Protein 13.80 H (0.00-0.80) mg/dL Total Protein 5.3 L (6.2-8.2) g/dL Albumin 3.3 L (3.8-4.9) g/dL Procalcitonin 0.52 H (0.02-0.50) ng/mL Urine Appearance (Clear) Urine Protein (Negative) Urine Blood (Negative) Urine RBC (0-5) /hpf Urine Bacteria (None) /hpf Urine Mucus (None) /hpf Diabetes panel 10/15/24 10/16/24 Range/Units 13:34 05:26 Sodium 129 L 133 L (137-145) mmol/L Potassium 3.8 3.8 (3.5-5.1) mmol/L Chloride 98 101 (98-107) mmol/L Carbon Dioxide 25 21.8 (22-30) mmol/L BUN 9 7.3 L (7-17) mg/dL Creatinine 0.79 0.8 (0.52-1.04) mg/dL Glucose 93 96 (74-99) mg/dL Calcium 8.1 L 7.6 L (8.4-10.2) mg/dL AST 66 H 58 H (14-36) U/L ALT 36 H 32 (4-34) U/L Alkaline Phosphatase 52 51 (38-126) U/L Total Protein 6.3 5.3 L (6.3-8.2) g/dL Albumin 3.7 3.3 L (3.5-5.0) g/dL Calcium panel 10/15/24 10/16/24 Range/Units 13:34 05:26 Calcium 8.1 L 7.6 L (8.4-10.2) mg/dL Albumin 3.7 3.3 L (3.5-5.0) g/dL Pituitary panel 10/15/24 10/16/24 Range/Units 13:34 05:26 Sodium 129 L 133 L (137-145) mmol/L Potassium 3.8 3.8 (3.5-5.1) mmol/L Chloride 98 101 (98-107) mmol/L Carbon Dioxide 25 21.8 (22-30) mmol/L BUN 9 7.3 L (7-17) mg/dL Creatinine 0.79 0.8 (0.52-1.04) mg/dL Glucose 93 96 (74-99) mg/dL Calcium 8.1 L 7.6 L (8.4-10.2) mg/dL Adrenal panel 10/15/24 10/16/24 Range/Units 13:34 05:26 Sodium 129 L 133 L (137-145) mmol/L Potassium 3.8 3.8 (3.5-5.1) mmol/L Chloride 98 101 (98-107) mmol/L Carbon Dioxide 25 21.8 (22-30) mmol/L BUN 9 7.3 L (7-17) mg/dL Creatinine 0.79 0.8 (0.52-1.04) mg/dL Glucose 93 96 (74-99) mg/dL Calcium 8.1 L 7.6 L (8.4-10.2) mg/dL Total Bilirubin 0.8 0.4 (0.2-1.3) mg/dL AST 66 H 58 H (14-36) U/L ALT 36 H 32 (4-34) U/L Alkaline Phosphatase 52 51 (38-126) U/L Total Protein 6.3 5.3 L (6.3-8.2) g/dL Albumin 3.7 3.3 L (3.5-5.0) g/dL
--- NOTE | 2024-10-16 14:05 | P.PN ---
Subjective Progress Note Date: 10/16/24 Principal diagnosis: Reason for follow-up is sepsis Patient is a 19-year-old female who is status post medically induced on 09/05/2024 with recent multiple visits to the ER on 09/11/2024 she was diagnosed with a UTI and discharged on Macrobid now presenting back to the hospital concerning for fever generalized bodyaches headache and nausea, patient did have a fever prompting this consultation On today's evaluation that is 10/16/2024, Patient did spike a fever of 100.7 F at noon patient still complaining of headache no photophobia nausea but no vomiting's been complaining of lower abdominal discomfort about the same no diarrhea or constipation patient white count slightly up to 2.30 platelet count is 60 creatinine 0.8 liver isms and slightly improved ultrasound of the abdomen as well as pelvis did not show any acute abnormality MRI of the brain was negative Objective - Vital Signs Vital signs: Vital Signs Temp 98.4 F 10/16/24 11:54 Pulse 97 10/16/24 11:54 Resp 16 10/16/24 11:54 BP 111/72 10/16/24 11:54 Pulse Ox 100 10/16/24 11:54 FiO2 Intake & Output 10/15/24 10/16/24 10/16/24 18:59 06:59 18:59 Intake Total 590 590 237 Balance 590 590 237 Weight 49.895 kg Intake: Oral 590 590 237 Other: Voiding Method Toilet Toilet # Voids 3 1 - Exam GENERAL DESCRIPTION: Young female lying in bed in no distress RESPIRATORY SYSTEM: Unlabored breathing , decreased breath sounds at bases HEART: S1 S2 regular rate and rhythm , ABDOMEN: Soft , lower abdominal tenderness SKIN: Generalized maculopapular rash EXTREMITIES: No edema feet - Labs CBC & Chem 7: 10/16/24 05:26 10/16/24 05:26 Labs: Abnormal Lab Results - Last 24 Hours (Table) 10/15/24 10/15/24 10/15/24 Range/Units 13:34 13:34 13:34 WBC 1.2 L* (3.8-10.6) k/uL RBC (4.10-5.20) X 10*6/uL Hgb (12.0-15.0) g/dL Hct (37.2-46.3) % RDW 11.3 L (11.5-15.5) % Plt Count 72 L D (150-450) k/uL MPV (9.5-12.2) FL Neutrophils # (Manual) 0.80 L (1.3-7.7) k/uL Lymphocytes # (0.90-5.00) X 10*3/uL Lymphocytes # (Manual) 0.34 L (1.0-4.8) k/uL Monocytes # (0.20-1.00) X 10*3/uL Eosinophils # (0.04-0.35) X 10*3/uL Immature Plt Fraction (1.1-6.1) % Sodium 129 L (137-145) mmol/L BUN (9.0-27.0) mg/dL BUN/Creatinine Ratio (12.00-20.00) Ratio Calcium 8.1 L (8.4-10.2) mg/dL AST 66 H (14-36) U/L ALT 36 H (4-34) U/L C-Reactive Protein (0.00-0.80) mg/dL Total Protein (6.2-8.2) g/dL Albumin (3.8-4.9) g/dL Urine Appearance Cloudy H (Clear) Urine Protein 2+ H (Negative) Urine Blood Large H (Negative) Urine RBC 14 H (0-5) /hpf Urine Bacteria Rare H (None) /hpf Urine Mucus Occasional H (None) /hpf 10/16/24 10/16/24 Range/Units 05:26 05:26 WBC 2.30 L (3.8-10.6) k/uL RBC 3.51 L (4.10-5.20) X 10*6/uL Hgb 10.6 L (12.0-15.0) g/dL Hct 30.8 L (37.2-46.3) % RDW (11.5-15.5) % Plt Count 60 L (150-450) k/uL MPV 14.0 H (9.5-12.2) FL Neutrophils # (Manual) (1.3-7.7) k/uL Lymphocytes # 0.18 L (0.90-5.00) X 10*3/uL Lymphocytes # (Manual) (1.0-4.8) k/uL Monocytes # 0.09 L (0.20-1.00) X 10*3/uL Eosinophils # 0 L (0.04-0.35) X 10*3/uL Immature Plt Fraction 15.6 H (1.1-6.1) % Sodium 133 L (137-145) mmol/L BUN 7.3 L (9.0-27.0) mg/dL BUN/Creatinine Ratio 9.12 L (12.00-20.00) Ratio Calcium 7.6 L (8.4-10.2) mg/dL AST 58 H (14-36) U/L ALT (4-34) U/L C-Reactive Protein 13.80 H (0.00-0.80) mg/dL Total Protein 5.3 L (6.2-8.2) g/dL Albumin 3.3 L (3.8-4.9) g/dL Urine Appearance (Clear) Urine Protein (Negative) Urine Blood (Negative) Urine RBC (0-5) /hpf Urine Bacteria (None) /hpf Urine Mucus (None) /hpf Assessment and Plan (1) Sepsis Current Visit: Yes Status: Acute Code(s): A41.9 - SEPSIS, UNSPECIFIED ORGANISM SNOMED Code(s): 89690840 (2) Neutropenia Current Visit: Yes Status: Acute Code(s): D70.9 - NEUTROPENIA, UNSPECIFIED SNOMED Code(s): 681753642 Plan: 1patient presented hospital with sepsis in this patient did have fever tachycardia and leukopenia meeting criteria for SIRS source questionable abdominal and is more behaving like a toxic shock syndrome as the patient has developed generalized maculopapular rash patient has been evaluated by OB and I have personally discussed the case with him who has done a pelvic exam and did not mention any significant cervical tenderness or any purulent drainage. 2we are currently waiting for CT abdominal pelvis ordered by surgical team. 3patient to continue with the vancomycin and ceftriaxone we will switch Flagyl to clindamycin and discontinue acyclovir Prognosis remains to be guarded Dictation was produced using [employer] dictation software. please excuse any grammatical, word or spelling errors. Time with Patient: Greater than 30
--- NOTE | 2024-10-16 15:06 | CT ---
EXAMINATION TYPE: CT abdomen pelvis w con DATE OF EXAM: 10/16/2024 COMPARISON: None CLINICAL INDICATION: Female, 19 years old with history of abdominal pain; PHH, abdominal pain, low hg b TECHNIQUE: Performed with Oral Contrast and with IV Contrast, patient injected with 50cc mL of Isovue 300. CT DLP: [address] CTDI: mGy Automated exposure control for dose reduction was used. FINDINGS: The lung bases are clear. The gallbladder is normal without distention, wall thickening, pericholecystic fluid or gallstones. T here is no biliary ductal dilatation. There is no focal mass or organomegaly involving the liver, pancreas, spleen or adrenal glands. There is no solid renal mass or hydronephrosis and there is homogeneous contrast enhancement of the r enal parenchyma. The caliber the abdominal aorta is normal is no retroperitoneal adenopathy or hemorr bernardino. The bowel loops are normal in caliber and there is no evidence of dilatation or obstruction. No infla mmatory changes are identified in the bowel wall or mesentery. There is a 4.2 cm mass predominantly fluid density in the region of the left adnexa which most likely represents left ovarian cyst. There is no free fluid in the cul-de-sac The osseous structures and soft tissues are intact. IMPRESSION: 1. 4.2 cm left adnexal or ovarian mass most likely a cyst. Short-term follow-up pelvic ultrasound is recommended 2. No acute changes within the abdomen or pelvis. [facility], , 10/16/2024 3:04 PM
[2024-10-16 15:07] VITALS: BMI 18.3
--- NOTE | 2024-10-16 15:22 | P.HPIM ---
History of Present Illness H&P Date: 10/16/24 This is a 19-year-old female who presented to the emergency department with feeling fever headache and bodyaches with fatigue and decreased appetite with abdominal pain for the last 3 days that had been progressively getting worse. Patient reports she had an on 09/05/2024 and was seen in the ER a week or so after that with some genitourinary symptoms and also another subsequent visit with urinary symptoms and hCG had been going down. Patient reports this is her second and her previous 1 was in April 19. Patient reports her last menstrual period is currently now as she is on her menstrual cycle and denies any other significant medical problems. Patient reports she does not currently have a primary care provider and no significant history other than vaping with tobacco. Patient denies marijuana or alcohol use or illicit drug use. On admission patient was noted to have a fever with tachycardia, and extremely low white count of 1.2, hemoglobin 12.6, platelets 72 and on the downward trend as this morning platelets are decreased at 60. White count slightly improved at 2.3 and hemoglobin is 10.6. Sodium was noted to be low at 129 although with gentle hydration overnight improved at 133, creatinine and other electrolytes within normal limits. AST mildly elevated at 66 and trending down, CRP is elevated at 13.8, procalcitonin is 0.52 urinalysis with large blood otherwise negative and virology testing including influenza, RSV, COVID are all negative as well as strep. Patient admitted with hematology/oncology along with infectious disease, gynecology, and neurology on consult. Patient did undergo abdominal ultrasound which was unremarkable ultrasound, patient also underwent pelvic ultrasound reporting no evidence of retained products of conception. CT abdomen pelvis is ordered and pending at this time as patient continues to have fevers and low white count. Undetermined source of infection although patient reports has had multiple antibiotic rounds in the outpatient setting for frequent urinary tract infections. Patient is maintained on broad-spectrum antibiotics with infectious disease following and appears to have developed an allergic reaction to one of the medications. Antibiotics being adjusted per infectious disease and will continue with as needed Benadryl and calamine lotion. REVIEW OF SYSTEMS: CONSTITUTIONAL: No fever, no malaise, reports of fatigue and headache HEENT: No recent visual problems or hearing problems. Denied any sore throat. CARDIOVASCULAR: No chest pain, orthopnea, PND, no palpitations, no syncope. PULMONARY: No shortness of breath, no cough, no hemoptysis. GASTROINTESTINAL: Reports a couple of episodes of diarrhea, occasional nausea, no vomiting, reports diffuse abdominal pain. NEUROLOGICAL: Reports of headaches, no weakness, no numbness. HEMATOLOGICAL: Denies any bleeding or petechiae. GENITOURINARY: Denies any burning micturition, frequency, or urgency. MUSCULOSKELETAL/RHEUMATOLOGICAL: Denies any joint pain, swelling, or any muscle pain. ENDOCRINE: Denies any polyuria or polydipsia. The rest of the 14-point review of systems is negative. PHYSICAL EXAMINATION: GENERAL: The patient is alert and oriented x3, not in any acute distress. Well developed, thin built, pale HEENT: Pupils are round and equally reacting to light. EOMI. No scleral icterus. No conjunctival pallor. Normocephalic, atraumatic. No pharyngeal erythema. No thyromegaly. CARDIOVASCULAR: S1 and S2 present. No murmurs, rubs, or gallops. PULMONARY: Chest is clear to auscultation, no wheezing or crackles. ABDOMEN: Soft, mildly tender on palpation, thin, normoactive bowel sounds. No palpable organomegaly. MUSCULOSKELETAL: No joint swelling or deformity. EXTREMITIES: No cyanosis, clubbing, or pedal edema. NEUROLOGICAL: Gross neurological examination did not reveal any focal deficits. SKIN: No rashes. Assessment: Abdominal pain with nausea, fever, headaches and bodyaches with sepsis, present on admission Neutropenia Sepsis, present on admission, unknown exact etiology with fevers, diffuse rash, leukopenia, tachycardia Diffuse rash of upper and lower extremities along with abdomen and torso, co ncern for allergic reaction. Medications being adjusted Recent elective in middle of August of this year, previous in March 2024 Vaping with tobacco use GI prophylaxis DVT prophylaxis Full code Plan: Patient is admitted with features of sepsis with multiple visits to the ER and recent outpatient clinic elective on September 09 of this year and previous in March of 2024 and patient reported no complications. Patient had 2-3 extra visits to the ER with abdominal pain and urinary symptoms send on Macrobid and other antibiotics and sent home and encouraged to follow-up outpatient with primary care provider. Patient currently has no primary care provider and will be provided with resources. Patient has had multiple images including ultrasounds and gynecology evaluation and not concerned of any retained products, ultrasound did not display any retained conception products. Patient reports she is bleeding vaginally and believes she is on her period again. CT abdomen pelvis ordered at this time and pending Neurology also following for this extensive headache and is scheduled to go to MRI and MRA of the brain which is pending at this time. Discussing possible LP as patient remains febrile and neutropenic Mother at the bedside reports patient has had multiple family members that were diagnosed with leukemia Continue ongoing workup and will obtain a D-dimer along with fibrin more number and repeat CBC with labs in the a.m. Also recommend PT/PTT The impression and plan of care has been dictated by Nurse Irina Prac titioner as directed. Dr. Otoneil MD I have performed a history and examination and MDM of this patient, discussed the same with the dictator, and agree with the dictator's assessment and plan as written ,documented as a scribe. Based on total visit time, I have performed more than 50% of the visit. Past Medical History Past Medical History: No Reported History History of Any Multi-Drug Resistant Organisms: None Reported Past Surgical History: No Surgical Hx Reported Additional Past Surgical History / Comment(s): Medical Past Psychological History: No Psychological Hx Reported Smoking Status: Vaper Past Alcohol Use History: None Reported Past Drug Use History: None Reported Medications and Allergies Home Medications Medication Instructions Recorded Confirmed Type RX: Ibuprofen 400 mg PO Q8H PRN #30 tablet 10/12/24 10/15/24 Rx Acetaminophen Tab [Tylenol Tab] 500 mg PO Q6H PRN 10/15/24 10/15/24 History Allergies Allergy/AdvReac Type Severity Reaction Status Date / Time No Known Allergies Allergy Verified 10/15/24 16:09 Physical Exam Vitals: Vital Signs Temp Pulse Pulse Resp BP BP BP 10/16/24 09:02 99.1 F 108 H 17 98/57 10/16/24 06:55 98.9 F 105 H 16 99/65 10/16/24 02:30 99.5 F 10/16/24 02:00 102.1 F H 111 H 16 95/58 10/15/24 19:33 97.6 F 80 16 103/70 10/15/24 17:42 98.4 F 86 20 109/73 10/15/24 16:10 98.7 F 83 18 101/67 10/15/24 14:34 98.9 F 96 18 10/15/24 11:57 101.1 F H 125 H 20 96/55 Pulse Ox 10/16/24 09:02 96 10/16/24 06:55 100 10/16/24 02:30 10/16/24 02:00 97 10/15/24 19:33 100 10/15/24 17:42 98 10/15/24 16:10 99 10/15/24 14:34 97 10/15/24 11:57 98 Intake and Output 10/15/24 10/16/24 10/16/24 22:59 06:59 14:59 Intake Total 590 590 237 Balance 590 590 237 Intake: Oral 590 590 237 Other: Voiding Method Toilet # Voids 3 1 Weight 49.895 kg Results CBC & Chem 7: 10/16/24 05:26 10/16/24 05:26 Labs: Abnormal Lab Results - Last 24 Hours (Table) 10/15/24 10/15/24 10/15/24 Range/Units 13:34 13:34 13:34 WBC 1.2 L* (3.8-10.6) k/uL RBC (4.10-5.20) X 10*6/uL Hgb (12.0-15.0) g/dL Hct (37.2-46.3) % RDW 11.3 L (11.5-15.5) % Plt Count 72 L D (150-450) k/uL MPV (9.5-12.2) FL Neutrophils # (Manual) 0.80 L (1.3-7.7) k/uL Lymphocytes # (0.90-5.00) X 10*3/uL Lymphocytes # (Manual) 0.34 L (1.0-4.8) k/uL Monocytes # (0.20-1.00) X 10*3/uL Eosinophils # (0.04-0.35) X 10*3/uL Immature Plt Fraction (1.1-6.1) % Sodium 129 L (137-145) mmol/L BUN (9.0-27.0) mg/dL BUN/Creatinine Ratio (12.00-20.00) Ratio Calcium 8.1 L (8.4-10.2) mg/dL AST 66 H (14-36) U/L ALT 36 H (4-34) U/L C-Reactive Protein (0.00-0.80) mg/dL Total Protein (6.2-8.2) g/dL Albumin (3.8-4.9) g/dL Urine Appearance Cloudy H (Clear) Urine Protein 2+ H (Negative) Urine Blood Large H (Negative) Urine RBC 14 H (0-5) /hpf Urine Bacteria Rare H (None) /hpf Urine Mucus Occasional H (None) /hpf 10/16/24 10/16/24 Range/Units 05:26 05:26 WBC 2.30 L (3.8-10.6) k/uL RBC 3.51 L (4.10-5.20) X 10*6/uL Hgb 10.6 L (12.0-15.0) g/dL Hct 30.8 L (37.2-46.3) % RDW (11.5-15.5) % Plt Count 60 L (150-450) k/uL MPV 14.0 H (9.5-12.2) FL Neutrophils # (Manual) (1.3-7.7) k/uL Lymphocytes # 0.18 L (0.90-5.00) X 10*3/uL Lymphocytes # (Manual) (1.0-4.8) k/uL Monocytes # 0.09 L (0.20-1.00) X 10*3/uL Eosinophils # 0 L (0.04-0.35) X 10*3/uL Immature Plt Fraction 15.6 H (1.1-6.1) % Sodium 133 L (137-145) mmol/L BUN 7.3 L (9.0-27.0) mg/dL BUN/Creatinine Ratio 9.12 L (12.00-20.00) Ratio Calcium 7.6 L (8.4-10.2) mg/dL AST 58 H (14-36) U/L ALT (4-34) U/L C-Reactive Protein 13.80 H (0.00-0.80) mg/dL Total Protein 5.3 L (6.2-8.2) g/dL Albumin 3.3 L (3.8-4.9) g/dL Urine Appearance (Clear) Urine Protein (Negative) Urine Blood (Negative) Urine RBC (0-5) /hpf Urine Bacteria (None) /hpf Urine Mucus (None) /hpf Thrombosis Risk Factor Assmnt - Choose All That Apply Any of the Below Risk Factors Present?: No
--- NOTE | 2024-10-16 15:24 | P.CNNES ---
History of Present Illness Consult date: 10/16/24 Requesting physician: Laureano Joshua Reason for Consult: headache, neutropenia History of Present Illness: This is a 19 young female who presented emergency department because of headache, chills. She is accompanied with her boyfriend is at bedside. It seems that she has been having headache over the last 3 days and she stated it over the left frontal and its pounding headache 10/10 she had nausea and 1 episode of vomiting. The headache can radiate backward. Yesterday she noticed the headache now located on right frontal and 6/10. The headache is constant. Denies any focal weakness any numbness. Denies any photophobia or phonophobia. Denies any neck pain. Denies any fevers but she did have chills. Denies any sick contacts. There is no certain things that improves the headache or worsens the headache. Denies any similar headache like this before. It seems that 6 weeks ago she had medically induced . She is having rash throughout her body but not the face. No recent travel. Some of the workup during this hospital visit consisted of: Tmax is 102.1 F White blood cells 1.2K hCG qualitative is detected and quantitative is 20.4 Sodium is 133, calcium is 7.6, AST is 58 ALT is 32 CRP 13.80 Influenza A/B/RSV/group A strep/SARS-CoV-2 PCR are nondetected Abdominal ultrasound is unremarkable Review of Systems As per HPI. Past Medical History Past Medical History: No Reported History History of Any Multi-Drug Resistant Organisms: None Reported Past Surgical History: No Surgical Hx Reported Additional Past Surgical History / Comment(s): Medical Past Psychological History: No Psychological Hx Reported Smoking Status: Vaper Past Alcohol Use History: None Reported Past Drug Use History: None Reported Medications and Allergies Home Medications Medication Instructions Recorded Confirmed Type Ibuprofen 400 mg PO Q8H PRN #30 tablet 10/12/24 10/15/24 Rx Acetaminophen Tab [Tylenol Tab] 500 mg PO Q6H PRN 10/15/24 10/15/24 History Allergies Allergy/AdvReac Type Severity Reaction Status Date / Time No Known Allergies Allergy Verified 10/15/24 16:09 Physical Examination - Vital Signs Vital Signs: Vital Signs Temp Pulse Pulse Resp BP BP BP 10/16/24 13:07 98.3 F 94 16 110/68 10/16/24 13:02 100.1 F H 10/16/24 12:20 100.7 F H 113 H 10/16/24 11:54 98.4 F 97 16 111/72 10/16/24 09:02 99.1 F 108 H 17 98/57 10/16/24 06:55 98.9 F 105 H 16 99/65 10/16/24 02:30 99.5 F 10/16/24 02:00 102.1 F H 111 H 16 95/58 10/15/24 19:33 97.6 F 80 16 103/70 10/15/24 17:42 98.4 F 86 20 109/73 10/15/24 16:10 98.7 F 83 18 101/67 Pulse Ox 10/16/24 13:07 100 10/16/24 13:02 10/16/24 12:20 10/16/24 11:54 100 10/16/24 09:02 96 10/16/24 06:55 100 10/16/24 02:30 10/16/24 02:00 97 10/15/24 19:33 100 10/15/24 17:42 98 10/15/24 16:10 99 Intake and Output 10/16/24 10/16/24 10/16/24 06:59 14:59 22:59 Intake Total 590 477 Balance 590 477 Intake: Oral 590 477 Other: Voiding Method Toilet # Voids 3 1 Weight 49.895 kg GENERAL: The patient is lying in bed and is not in acute distress. HENT: Supple neck. INTEGUMENTARY: Has erythematous rash throughout all extremities, abdomen, trunk. NEUROLOGICAL: Higher mental function: The patient is awake, alert, oriented to self, place and time. Patient is following commands. No aphasia and no neglect. Cranial nerves: The pupils are round, equal and reactive to light and accommodation. Visual lua are full to confrontation throughout. Extraocular movement is intact no nystagmus is noted. Facial sensation is normal to touch throughout. The facial strength is normal throughout. Hearing is normal bilaterally to hand rub. Tongue is midline and moved [id number] without any difficulty. No dysarthria is noted. Shoulder shrug is normal bilaterally. Motor: The strength is 5 over 5 throughout. Normal tone and bulk. Cerebellum: Normal finger to nose heel to lopes bilaterally. Sensation: Sensation is normal to touch throughout. Reflexes (right/left): 2+ throughout. Plantars are downgoing bilaterally. Results - Laboratory Findings CBC and BMP: 10/16/24 05:26 10/16/24 05:26 Abnormal Lab Findings: Abnormal Labs 10/15/24 10/15/24 10/15/24 13:34 13:34 13:34 WBC 1.2 L* RBC Hgb Hct RDW 11.3 L Plt Count 72 L D MPV Neutrophils # (Manual) 0.80 L Lymphocytes # Lymphocytes # (Manual) 0.34 L Monocytes # Eosinophils # Immature Plt Fraction Sodium 129 L BUN BUN/Creatinine Ratio Calcium 8.1 L AST 66 H ALT 36 H C-Reactive Protein Total Protein Albumin Procalcitonin Urine Appearance Cloudy H Urine Protein 2+ H Urine Blood Large H Urine RBC 14 H Urine Bacteria Rare H Urine Mucus Occasional H 10/16/24 10/16/24 10/16/24 05:26 05:26 05:26 WBC 2.30 L RBC 3.51 L Hgb 10.6 L Hct 30.8 L RDW Plt Count 60 L MPV 14.0 H Neutrophils # (Manual) Lymphocytes # 0.18 L Lymphocytes # (Manual) Monocytes # 0.09 L Eosinophils # 0 L Immature Plt Fraction 15.6 H Sodium 133 L BUN 7.3 L BUN/Creatinine Ratio 9.12 L Calcium 7.6 L AST 58 H ALT C-Reactive Protein 13.80 H Total Protein 5.3 L Albumin 3.3 L Procalcitonin 0.52 H Urine Appearance Urine Protein Urine Blood Urine RBC Urine Bacteria Urine Mucus Assessment and Plan Assessment: This is a 19-year-old young male who had elective that is medically induced about 6 weeks ago and for the last 3 days she is having headache with nausea chills. She is also having fevers and rash. Patient is not confused and no rneck igidity. Her HcG level is elevated. Cephalgia with fever, leukopenia and diffuse rash and elevated hCG: This does not seem meningitis or encephalitis. Also seems to the patient is having abdominal pain. Rule out ?ectopic Plan: Ordered MRI of the brain MRA of the head MRV head stat From a neurologic perspective lumbar puncture is not warranted unless there is no other reason to explain her symptoms but this does not seem as stated above meningitis or encephalitis. 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 I also discussed the case with the ID team Thank for the consultation Time with Patient: Greater than 30
[2024-10-16 15:35] LABS: INR 1.2 (<1.2); Partial Thromboplastin Time 34.1 sec (22.0-30.0)
[2024-10-16] MEDS: CLINDAMYCIN 900 MG in DEXTROSE 5% IN WATER 50 ML IVPB SCH (15:37)
[2024-10-16 15:49] LABS: HIV 2 AB Non-Reactive (Non-Reactive); HIV AB P24 Non-Reactive (Non-Reactive); HIV P24 AG Non-Reactive (Non-Reactive)
[2024-10-16] MEDS: IBUPROFEN 400 MG TAB PO PRN (16:51)
[2024-10-16] MEDS: DOXYCYCLINE 100 MG in SODIUM CHLORIDE 0.9% 100 ML IVPB SCH (17:53)
--- NOTE | 2024-10-16 20:25 | US ---
EXAMINATION TYPE: US venous doppler duplex LE BI DATE OF EXAM: 10/16/2024 7:28 PM COMPARISON: NONE CLINICAL INDICATION: Female, 19 years old with history of r/o dvt, elevated d dimer; elevated d dimer . no pain. patient states swelling at ankles, TECHNIQUE: The lower extremity deep venous system is examined utilizing real time linear array sonog arabella with graded compression, color doppler sonography, and spectral doppler. SIDE PERFORMED: Bilateral FINDINGS: VESSELS IMAGED: Common Femoral Vein Deep Femoral Vein Greater Saphenous Vein * Femoral Vein Popliteal Vein Small Saphenous Vein * Proximal Calf Veins (* superficial vessels) Right Leg: Negative for DVT, Color Doppler imaging shows patency of the vessels. Spectral waveforms are within normal limits. Left Leg: Negative for DVT, Color Doppler imaging shows patency of the vessels. Spectral waveforms a re within normal limits. IMPRESSION: No ultrasound evidence for deep venous thrombosis. [facility], , 10/16/2024 8:23 PM
[2024-10-17] MEDS: VANCOMYCIN TROUGH DUE 1 EACH MISC MISCELLANE ONE (05:21)
[2024-10-17] MEDS: HYDROmorphone 0.5 MG/0.5 ML SYRINGE IVP STA (05:22)
[2024-10-17 06:03] LABS: ALT 34 U/L (4-34); AST 60 U/L (14-36); African American GFR (CKD) >90 (>60 ml/min/1.73 sqM); Albumin/Globulin Ratio 1.3; Alkaline Phosphatase 65 U/L (38-126); Anion Gap 7 mmol/L; Blood Urea Nitrogen 7 mg/dL (7-17); Calcium 8.2 mg/dL (8.4-10.2); Carbon Dioxide 26 mmol/L (22-30); Chloride 101 mmol/L (98-107); Globulin 2.4 g/dL; Glucose 120 mg/dL (74-99); Non-African American GFR(CKD) >90 (>60 ml/min/1.73 sqM); Potassium 3.8 mmol/L (3.5-5.1); Sodium 134 mmol/L (137-145); Total Bilirubin 0.5 mg/dL (0.2-1.3); Total Protein 5.4 g/dL (6.3-8.2)
[2024-10-17 06:17] LABS: HCG,Quantitative Serum 19.6 mIU/mL
--- NOTE | 2024-10-17 06:33 | P.PN ---
Progress Note - Text Progress Note Date: 10/16/24 Dr. Ross consulted anesthesiologist for lumbar puncture. After reviewing medical records, patient platelet count 60. Discussed with Dr. Ross, regarding risk of epidural/subdural hematoma. Discussed with Tao regarding risk versus benefits, and he agreed to hold lumbar puncture. Also discussed with patient, and family regarding lumbar puncture procedure, benefits and its complications. Patient agreed, and refused to proceed with lumbar puncture with low platelet count at this time.
--- NOTE | 2024-10-17 08:51 | P.PN ---
Subjective Progress Note Date: 10/17/24 Principal diagnosis: Sepsis of unknown etiology The patient continues to have moderate to significant nausea and vomiting and feels generally unwell. She has no localizing symptoms in terms of pain. She continues to complain of headache. She does continue to have a small amount of vaginal bleeding. Objective - Vital Signs Vital signs: Vital Signs Temp 99.9 F H 10/17/24 08:36 Pulse 107 H 10/17/24 08:36 Resp 17 10/17/24 08:36 BP 113/74 10/17/24 08:36 Pulse Ox 98 10/17/24 08:36 FiO2 Intake & Output 10/16/24 10/17/24 10/17/24 18:59 06:59 18:59 Intake Total 1976 1079 Balance 1976 1079 Weight 49.895 kg Intake: Oral 1976 1079 Other: Voiding Method Toilet Toilet # Voids 5 3 # Bowel Movements 4 1 - Exam Abdominal examination demonstrates no evidence of significant tenderness, guarding, or rebound. There is no palpable masses. Pelvic examination is deferred. - Labs CBC & Chem 7: 10/16/24 05:26 10/17/24 05:18 Labs: Abnormal Lab Results - Last 24 Hours (Table) 10/16/24 10/16/24 10/16/24 Range/Units 05:26 05:26 05:26 WBC 2.30 L (4.50-10.00) X 10*3/uL RBC 3.51 L (4.10-5.20) X 10*6/uL Hgb 10.6 L (12.0-15.0) g/dL Hct 30.8 L (37.2-46.3) % Plt Count 60 L (140-440) X 10*3/uL MPV 14.0 H (9.5-12.2) FL Lymphocytes # 0.18 L (0.90-5.00) X 10*3/uL Monocytes # 0.09 L (0.20-1.00) X 10*3/uL Eosinophils # 0 L (0.04-0.35) X 10*3/uL Immature Plt Fraction 15.6 H (1.1-6.1) % PT (10.0-12.5) sec INR (<1.2) APTT (22.0-30.0) sec D-Dimer (<0.60) mg/L FEU Sodium 133 L (135-145) mmol/L BUN 7.3 L (9.0-27.0) mg/dL BUN/Creatinine Ratio 9.12 L (12.00-20.00) Ratio Glucose (74-99) mg/dL Calcium 7.6 L (8.7-10.3) mg/dL AST 58 H (13-35) U/L C-Reactive Protein 13.80 H (0.00-0.80) mg/dL Total Protein 5.3 L (6.2-8.2) g/dL Albumin 3.3 L (3.8-4.9) g/dL Procalcitonin 0.52 H (0.02-0.50) ng/mL 10/16/24 10/17/24 Range/Units 14:55 05:18 WBC (4.50-10.00) X 10*3/uL RBC (4.10-5.20) X 10*6/uL Hgb (12.0-15.0) g/dL Hct (37.2-46.3) % Plt Count (140-440) X 10*3/uL MPV (9.5-12.2) FL Lymphocytes # (0.90-5.00) X 10*3/uL Monocytes # (0.20-1.00) X 10*3/uL Eosinophils # (0.04-0.35) X 10*3/uL Immature Plt Fraction (1.1-6.1) % PT 13.0 H (10.0-12.5) sec INR 1.2 H (<1.2) APTT 34.1 H (22.0-30.0) sec D-Dimer 29.87 H (<0.60) mg/L FEU Sodium 134 L (135-145) mmol/L BUN (9.0-27.0) mg/dL BUN/Creatinine Ratio (12.00-20.00) Ratio Glucose 120 H (74-99) mg/dL Calcium 8.2 L (8.7-10.3) mg/dL AST 60 H (13-35) U/L C-Reactive Protein (0.00-0.80) mg/dL Total Protein 5.4 L (6.2-8.2) g/dL Albumin 3.0 L (3.8-4.9) g/dL Procalcitonin (0.02-0.50) ng/mL Microbiology - Last 24 Hours (Table) 10/15/24 15:52 Blood Culture - Preliminary Blood Assessment and Plan (1) Status post elective Current Visit: Yes Status: Acute Code(s): Z98.890 - OTHER SPECIFIED POSTPROCEDURAL STATES SNOMED Code(s): 827916000 (2) Sepsis Current Visit: Yes Status: Acute Code(s): A41.9 - SEPSIS, UNSPECIFIED ORGANISM SNOMED Code(s): 77800211 Plan: I continue to highly doubt an obstetrical or gynecologic origin for her ongoing symptoms. At the time of this note, the CBC is not reported. hCG dropped, but only marginally. I would recommend this be repeated in 5 to 7 days as it should resolve on its own spontaneously. If it were to be persistent, there would be a consideration for D&C despite the fact that there is no evidence of retained products. Should it still be persistent and under normal circumstances, consideration could be given to methotrexate. This, however, would be contraindicated currently given her neutropenia. I would strongly consider a consultation with hematology and oncology given her neutropenia and thrombocytopenia without evidence of a source for sepsis. I will back away from the case but continue to follow in the chart and be available should any further questions arise.
[2024-10-17 09:48] LABS: Basophils # (A) 0.01 X 10*3/uL (0.00-0.10); Basophils % (A) 0.3 %; Eosinophils # (A) 0 X 10*3/uL (0.04-0.35); Eosinophils % (A) 0 %; HCT 30.1 % (37.2-46.3); HGB 10.4 g/dL (12.0-15.0); Immature Platelet Fraction 14.8 % (1.1-6.1); Lymphocytes # (A) 0.21 X 10*3/uL (0.90-5.00); Lymphocytes % (A) 7.3 %; MCH 30.4 pg (27.0-32.0); MCHC 34.6 g/dL (32.0-37.0); Mean Platelet Volume 13.3 FL (9.5-12.2); Monocytes # (A) 0.08 X 10*3/uL (0.20-1.00); Monocytes % (A) 2.8 %; NRBC Per 100 WBC 0 X 10*3/uL (0.00-0.01); Neutrophils # (A) 2.53 X 10*3/uL (1.80-7.70); Neutrophils % (A) 88.6 %; Platelet Count 73 X 10*3/uL (140-440); RBC 3.42 X 10*6/uL (4.10-5.20); RDW 11.8 % (11.5-14.5); WBC 2.86 X 10*3/uL (4.50-10.00)
[2024-10-17] MEDS: diphenhydrAMINE 50 MG/ML 1 ML VIAL IVP PRN (11:36)
[2024-10-17] MEDS: ACETAMINOPHEN IV (For NPO) 1,000 MG in EMPTY BAG 1 BAG IVPB SCH (11:37)
--- NOTE | 2024-10-17 13:17 | P.PN ---
Subjective Progress Note Date: 10/17/24 SURGICAL PROGRESS NOTE CHIEF COMPLAINT: sepsis HISTORY OF PRESENT ILLNESS: Patient complains of headache and vomiting. She was able to tolerate dinner last night. She continues to have low-grade fevers mildly tachycardic. CT scan abdomen pelvis reported no acute findings. Did report a 4.2 cm cyst in the left ovary. Patient denies any abdominal pain at this time. WBC 2.86 Hgb 10.4 platelets 73 PT 13 INR 1.2 D-dimer 29.87. Case discussed with medicine service about possible DIC. They have consulted hematology and CTA of the chest has been ordered to rule out PE and echo ordered. PHYSICAL EXAM: VITAL SIGNS: Reviewed. GENERAL: Well-developed in no acute distress. ABDOMEN: Soft. Nondistended. Nontender. NEUROLOGIC: Alert and oriented. Cranial nerves II through XII grossly intact. SKIN: rash ASSESSMENT: 1. Abdominal pain resolved. No acute findings on CT scan 2. Sepsis with unknown etiology with fever, headache, body aches and diffuse rash 3. Pancytopenic 4. Status post elective September 05, 2024 PLAN: -Agree with hematology consult for possible DIC -Agree with antibiotics for sepsis -No surgical intervention planned Physician Sinker Puller note has been reviewed by physician. Signing provider agrees with the documented findings, assessment, and plan of care. Objective - Vital Signs Vital signs: Vital Signs Temp 100.1 F H 10/17/24 11:51 Pulse 106 H 10/17/24 11:51 Resp 16 10/17/24 11:51 BP 124/80 10/17/24 11:51 Pulse Ox 98 10/17/24 11:51 FiO2 Intake & Output 10/16/24 10/17/24 10/17/24 18:59 06:59 18:59 Intake Total 1976 1080 237 Balance 1976 1080 237 Weight 49.895 kg Intake: Oral 1976 1080 237 Other: Voiding Method Toilet Toilet Toilet # Voids 5 3 # Bowel Movements 4 1 - Labs CBC & Chem 7: 10/17/24 05:18 10/17/24 05:18 Labs: Abnormal Lab Results - Last 24 Hours (Table) 10/16/24 10/17/24 10/17/24 Range/Units 14:55 05:18 05:18 WBC (4.50-10.00) X 10*3/uL RBC (4.10-5.20) X 10*6/uL Hgb (12.0-15.0) g/dL Hct (37.2-46.3) % Plt Count (140-440) X 10*3/uL MPV (9.5-12.2) FL Lymphocytes # (0.90-5.00) X 10*3/uL Monocytes # (0.20-1.00) X 10*3/uL Eosinophils # (0.04-0.35) X 10*3/uL Immature Plt Fraction (1.1-6.1) % PT 13.0 H (10.0-12.5) sec INR 1.2 H (<1.2) APTT 34.1 H (22.0-30.0) sec D-Dimer 29.87 H (<0.60) mg/L FEU Sodium 134 L (137-145) mmol/L Glucose 120 H (74-99) mg/dL Calcium 8.2 L (8.4-10.2) mg/dL AST 60 H (14-36) U/L C-Reactive Protein 16.70 H (0.00-0.80) mg/dL Total Protein 5.4 L (6.3-8.2) g/dL Albumin 3.0 L (3.5-5.0) g/dL Procalcitonin 4.55 H (0.02-0.50) ng/mL 10/17/24 Range/Units 05:18 WBC 2.86 L (4.50-10.00) X 10*3/uL RBC 3.42 L (4.10-5.20) X 10*6/uL Hgb 10.4 L (12.0-15.0) g/dL Hct 30.1 L (37.2-46.3) % Plt Count 73 L (140-440) X 10*3/uL MPV 13.3 H (9.5-12.2) FL Lymphocytes # 0.21 L (0.90-5.00) X 10*3/uL Monocytes # 0.08 L (0.20-1.00) X 10*3/uL Eosinophils # 0 L (0.04-0.35) X 10*3/uL Immature Plt Fraction 14.8 H (1.1-6.1) % PT (10.0-12.5) sec INR (<1.2) APTT (22.0-30.0) sec D-Dimer (<0.60) mg/L FEU Sodium (137-145) mmol/L Glucose (74-99) mg/dL Calcium (8.4-10.2) mg/dL AST (14-36) U/L C-Reactive Protein (0.00-0.80) mg/dL Total Protein (6.3-8.2) g/dL Albumin (3.5-5.0) g/dL Procalcitonin (0.02-0.50) ng/mL Microbiology - Last 24 Hours (Table) 10/15/24 15:52 Blood Culture - Preliminary Blood
[2024-10-17] MEDS: VANCOMYCIN 1,000 MG in SODIUM CHLORIDE 0.9% 250 ML IVPB SCH (15:12)
--- NOTE | 2024-10-17 15:12 | P.PN ---
Subjective Progress Note Date: 10/17/24 I am following-up with patient and she feels worse. She is having pain behind eyes, diffuse headache and feels her headache are all types of headache. She had nausea and vomiting. She denies any focal weakness. She states since her medical induced in 08/2024 she has not been sexually active. She took PO medication for and did not have D &C. She continues to be febrile, leukopenia, elevated hcG. Yesterday she anesthesiologist was consulted by IEnrique and the opted out performing lumbar puncture because of thrombocytopenia. Objective - Vital Signs Vital signs: Vital Signs Temp 100.1 F H 10/17/24 11:51 Pulse 106 H 10/17/24 11:51 Resp 16 10/17/24 11:51 BP 124/80 10/17/24 11:51 Pulse Ox 98 10/17/24 11:51 FiO2 Intake & Output 10/16/24 10/17/24 10/17/24 18:59 06:59 18:59 Intake Total 1976 1079 1994 Balance 1976 1079 1994 Weight 49.895 kg Intake: Oral 1976 1079 1994 Other: Voiding Method Toilet Toilet Toilet # Voids 5 3 5 # Bowel Movements 4 1 2 - Exam General: Seems in moderate pain. Intergumentary: Erythematous rash that is diffuse and now including face. Neuro: Very limited since refusing to cooperate for examination because she is in pain and wants to be left alone. Some of the workup during this hospital visit consisted of: Tmax is 102.0 F in the last 24 hours White blood cells 1.2K-->2.86K PT 13, PTT 34, D-Dimer 29.87 Platelets are as low as 60K. Slightly elevated AST. hCG qualitative is detected and quantitative is 20.4 and repeat is 19.6 Sodium is 133, calcium is 7.6, AST is 58 ALT is 32 CRP 13.80 Influenza A/B/RSV/group A strep/SARS-CoV-2 PCR are nondetected HIV is nonreactive Abdominal ultrasound is unremarkable MRI Brain: Is unremarkable study MRA head/MRV head: Normal. CT abdomen/Pelvis: 4.2cm left adnexal or ovarian mass most likely a cyst. Short term follow-up pelvic is recommended. - Labs CBC & Chem 7: 10/17/24 05:18 10/17/24 05:18 Labs: Abnormal Lab Results - Last 24 Hours (Table) 10/16/24 10/17/24 10/17/24 Range/Units 14:55 05:18 05:18 WBC (4.50-10.00) X 10*3/uL RBC (4.10-5.20) X 10*6/uL Hgb (12.0-15.0) g/dL Hct (37.2-46.3) % Plt Count (140-440) X 10*3/uL MPV (9.5-12.2) FL Lymphocytes # (0.90-5.00) X 10*3/uL Monocytes # (0.20-1.00) X 10*3/uL Eosinophils # (0.04-0.35) X 10*3/uL Immature Plt Fraction (1.1-6.1) % PT 13.0 H (10.0-12.5) sec INR 1.2 H (<1.2) APTT 34.1 H (22.0-30.0) sec Fibrinogen (200-500) mg/dL D-Dimer 29.87 H (<0.60) mg/L FEU Sodium 134 L (137-145) mmol/L Glucose 120 H (74-99) mg/dL Calcium 8.2 L (8.4-10.2) mg/dL AST 60 H (14-36) U/L C-Reactive Protein 16.70 H (0.00-0.80) mg/dL Total Protein 5.4 L (6.3-8.2) g/dL Albumin 3.0 L (3.5-5.0) g/dL Procalcitonin 4.55 H (0.02-0.50) ng/mL 10/17/24 10/17/24 Range/Units 05:18 13:07 WBC 2.86 L (4.50-10.00) X 10*3/uL RBC 3.42 L (4.10-5.20) X 10*6/uL Hgb 10.4 L (12.0-15.0) g/dL Hct 30.1 L (37.2-46.3) % Plt Count 73 L (140-440) X 10*3/uL MPV 13.3 H (9.5-12.2) FL Lymphocytes # 0.21 L (0.90-5.00) X 10*3/uL Monocytes # 0.08 L (0.20-1.00) X 10*3/uL Eosinophils # 0 L (0.04-0.35) X 10*3/uL Immature Plt Fraction 14.8 H (1.1-6.1) % PT (10.0-12.5) sec INR (<1.2) APTT (22.0-30.0) sec Fibrinogen 134 L (200-500) mg/dL D-Dimer (<0.60) mg/L FEU Sodium (137-145) mmol/L Glucose (74-99) mg/dL Calcium (8.4-10.2) mg/dL AST (14-36) U/L C-Reactive Protein (0.00-0.80) mg/dL Total Protein (6.3-8.2) g/dL Albumin (3.5-5.0) g/dL Procalcitonin (0.02-0.50) ng/mL Microbiology - Last 24 Hours (Table) 10/15/24 15:52 Blood Culture - Preliminary Blood Assessment and Plan Assessment: This is a 19-year-old young male who had elective that is medically induced about 6 weeks ago and for the last 3 days she is having headache with nausea chills. She is also having fevers and rash. Patient is not confused and no rneck igidity. Her HcG level is elevated. Cephalgia with fever, leukopenia, thrombocytopenia, diffuse rash, elevated PT, PTT and abdominal pain with Nausea and vomiting. I am concerned about Disseminated Intravascular Coagulopathy (DIC): Unsure cause but rule out ectopic vs molar because of persistent elevated hCG: I feel less likely meningitis or encephalitis. MRI Brain, MRA head head/MRV are unremarkabl e. She is currently on Ceftriaxone. Plan: Yesterday I.D. consulted anesthesiologist for lumbar puncture but opted out of performing since has thrombocytopenia. Patient is currently of Ceftriaxone 2gm bid and Vacomycin per I.D. team. Hematology is consulted. I.D. is on board. [employer] team is board. Consider D&C. General Surgery team is consulted I recommend the patient to be transferred to a [facility] for escalation of care. This was notified to primary team. Will defer the rest of the medical management to primary other specialist Time with Patient: Less than 30
[2024-10-17 15:23] LABS: Reticulocyte % 0.6 % (0.5-2.0)
[2024-10-17 15:33] LABS: LDH 664 U/L (120-246)
--- NOTE | 2024-10-17 15:50 | P.PN ---
Subjective Progress Note Date: 10/17/24 Principal diagnosis: Reason for follow-up is sepsis Patient is a 19-year-old female who is status post medically induced on 09/05/2024 with recent multiple visits to the ER on 09/11/2024 she was diagnosed with a UTI and discharged on Macrobid now presenting back to the hospital concerning for fever generalized bodyaches headache and nausea, patient did have a fever prompting this consultation On today's evaluation that is 10/17/2024,the patient did have improvement in her fever pattern with a temperature of 99.9 F this morning still complaining of headache and did have multiple episode of vomiting as reported by the friend at the bedside patient is hemodynamic stable requiring pressor support oxygen. The patient white count slightly up to 2.86 platelet count of 273 0.58 ALT is normal hCG is down to 19.6 Vanco trough was low at 5.1 HIV testing is negative blood culture currently pending Objective - Vital Signs Vital signs: Vital Signs Temp 99.9 F H 10/17/24 08:36 Pulse 107 H 10/17/24 08:36 Resp 17 10/17/24 08:36 BP 113/74 10/17/24 08:36 Pulse Ox 98 10/17/24 08:36 FiO2 Intake & Output 10/16/24 10/17/24 10/17/24 18:59 06:59 18:59 Intake Total 1976 1080 237 Balance 1976 1080 237 Weight 49.895 kg Intake: Oral 1976 1080 237 Other: Voiding Method Toilet Toilet # Voids 5 3 # Bowel Movements 4 1 - Exam GENERAL DESCRIPTION: Young female lying in bed in no distress RESPIRATORY SYSTEM: Unlabored breathing , decreased breath sounds at bases HEART: S1 S2 regular rate and rhythm , ABDOMEN: Soft , lower abdominal tenderness SKIN: Generalized maculopapular rash EXTREMITIES: No edema feet - Labs CBC & Chem 7: 10/17/24 05:18 10/17/24 05:18 Labs: Abnormal Lab Results - Last 24 Hours (Table) 10/16/24 10/16/24 10/17/24 Range/Units 05:26 14:55 05:18 WBC (4.50-10.00) X 10*3/uL RBC (4.10-5.20) X 10*6/uL Hgb (12.0-15.0) g/dL Hct (37.2-46.3) % Plt Count (140-440) X 10*3/uL MPV (9.5-12.2) FL Lymphocytes # (0.90-5.00) X 10*3/uL Monocytes # (0.20-1.00) X 10*3/uL Eosinophils # (0.04-0.35) X 10*3/uL Immature Plt Fraction (1.1-6.1) % PT 13.0 H (10.0-12.5) sec INR 1.2 H (<1.2) APTT 34.1 H (22.0-30.0) sec D-Dimer 29.87 H (<0.60) mg/L FEU Sodium (137-145) mmol/L Glucose (74-99) mg/dL Calcium (8.4-10.2) mg/dL AST (14-36) U/L C-Reactive Protein (0.00-0.80) mg/dL Total Protein (6.3-8.2) g/dL Albumin (3.5-5.0) g/dL Procalcitonin 0.52 H 4.55 H (0.02-0.50) ng/mL 10/17/24 10/17/24 Range/Units 05:18 05:18 WBC 2.86 L (4.50-10.00) X 10*3/uL RBC 3.42 L (4.10-5.20) X 10*6/uL Hgb 10.4 L (12.0-15.0) g/dL Hct 30.1 L (37.2-46.3) % Plt Count 73 L (140-440) X 10*3/uL MPV 13.3 H (9.5-12.2) FL Lymphocytes # 0.21 L (0.90-5.00) X 10*3/uL Monocytes # 0.08 L (0.20-1.00) X 10*3/uL Eosinophils # 0 L (0.04-0.35) X 10*3/uL Immature Plt Fraction 14.8 H (1.1-6.1) % PT (10.0-12.5) sec INR (<1.2) APTT (22.0-30.0) sec D-Dimer (<0.60) mg/L FEU Sodium 134 L (137-145) mmol/L Glucose 120 H (74-99) mg/dL Calcium 8.2 L (8.4-10.2) mg/dL AST 60 H (14-36) U/L C-Reactive Protein 16.70 H (0.00-0.80) mg/dL Total Protein 5.4 L (6.3-8.2) g/dL Albumin 3.0 L (3.5-5.0) g/dL Procalcitonin (0.02-0.50) ng/mL Microbiology - Last 24 Hours (Table) 10/15/24 15:52 Blood Culture - Preliminary Blood Assessment and Plan (1) Sepsis Current Visit: Yes Status: Acute Code(s): A41.9 - SEPSIS, UNSPECIFIED ORGANISM SNOMED Code(s): 89907873 (2) Neutropenia Current Visit: Yes Status: Acute Code(s): D70.9 - NEUTROPENIA, UNSPECIFIED SNOMED Code(s): 873766909 Plan: 1patient presented hospital with sepsis in this patient did have fever tachycardia and leukopenia meeting criteria for SIRS source questionable abdominal and is more behaving like a toxic shock syndrome as the patient has developed generalized maculopapular rash patient has been evaluated by OB and I have personally discussed the case with him who has done a pelvic exam and did not mention any significant cervical tenderness or any purulent drainage. 2patient did have CT abdominal pelvis did shows a left ovarian cyst but no retained products of conception, ob is following the patient 3LP was ordered yesterday but could not be completed by anesthesia because of low platelet count 3patient did not have any recent travel patient did have a Bearded dragon pet at home that will put her at high risk of Salmonella infection however the patient is covered with the ceftriaxone in addition to the vancomycin to concern for possible meningitis and covered with the doxycycline for possible atypical infection keeping in mind overall complicated condition and lack of ability to perform some testing may benefit from a tertiary center referral this has been discussed in detail with the admitting physician BE[employer] Dictation was produced using [employer] dictation software. please excuse any grammatical, word or spelling errors. Time with Patient: Less than 30
--- NOTE | 2024-10-17 22:12 | CT ---
EXAMINATION TYPE: CT angio chest DATE OF EXAM: 10/17/2024 COMPARISON: NONE HISTORY: elevated d dimer and shortness of breath CT DLP: 140.9 mGycm. Automated Exposure Control for Dose Reduction was Utilized. CONTRAST: CTA scan of the thorax is performed with IV Contrast, patient injected with 80ml mL of Isovue 370, pu lmonary embolism protocol. MIP Images are created on CT scanner and reviewed. FINDINGS: LUNGS: There are small bilateral pleural effusions. There are bilateral groundglass opacities greates t in the lower lungs suggesting moderate edema. There is motion artifact making evaluation suboptima l particularly for subcentimeter nodules. No suspicious focal consolidation. No pneumothorax seen lupe aterally. MEDIASTINUM: Suboptimal study with most dense contrast in the SVC. There is more dense contrast in th e thoracic aorta and pulmonary arteries without aneurysm or dissection. Less than ideal opacification of the pulmonary arteries. No large central pulmonary embolism. Suboptimal evaluation of more periph eral vessels. No cardiomegaly or significant pericardial effusion OTHER: No additional significant abnormality is seen. IMPRESSION: 1. Suboptimal study without acute central pulmonary embolism. Cannot exclude peripheral acute pulmona ry embolism on this study. 2. There are small bilateral pleural effusions and moderate bilateral alveolar edema. Correlate for s uspected fluid overload state. [facility], , 10/17/2024 10:09 PM
--- NOTE | 2024-10-18 02:25 | P.PN ---
Subjective Progress Note Date: 10/17/24 This is a 19-year-old female who presented to the emergency department with feeling fever headache and bodyaches with fatigue and decreased appetite with abdominal pain for the last 3 days that had been progressively getting worse. Patient reports she had an on 09/05/2024 and was seen in the ER a week or so after that with some genitourinary symptoms and also another subsequent visit with urinary symptoms and hCG had been going down. Patient reports this is her second and her previous 1 was in April 19. Patient reports her last menstrual period is currently now as she is on her menstrual cycle and denies any other significant medical problems. Patient reports she does not c urrently have a primary care provider and no significant history other than vaping with tobacco. Patient denies marijuana or alcohol use or illicit drug use. On admission patient was noted to have a fever with tachycardia, and extremely low white count of 1.2, hemoglobin 12.6, platelets 72 and on the downward trend as this morning platelets are decreased at 60. White count slightly improved at 2.3 and hemoglobin is 10.6. Sodium was noted to be low at 129 although with gentle hydration overnight improved at 133, creatinine and other electrolytes within normal limits. AST mildly elevated at 66 and trending down, CRP is elevated at 13.8, procalcitonin is 0.52 urinalysis with large blood otherwise negative and virology testing including influenza, RSV, COVID are all negative as well as strep. Patient admitted with hematology/oncology along with infectious disease, gynecology, and neurology on consult. Patient did undergo abdominal ultrasound which was unremarkable ultrasound, patient also underwent pelvic ultrasound reporting no evidence of retained products of conception. CT abdomen pelvis is ordered and pending at this time as patient continues to have fevers and low white count. Undetermined source of infection although patient reports has had multiple antibiotic rounds in the outpatient setting for frequent urinary tract infections. Patient is maintained on broad-spectrum antibiotics with infectious disease following and appears to have developed an allergic reaction to one of the medications. Antibiotics being adjusted per infectious disease and will continue with as needed Benadryl and calamine lotion. 10/18/2024 Patient is seen in follow-up today continues to have fevers although are under downward trend. Patient continues with rash that is maculopapular and diffuse although appears slightly worse this morning, will give Benadryl. Hematology/oncology being consulted with concerns of possible DIC. White count remains low although is improving above 2 today. Platelets are at 73. Patient does have some mild vaginal bleeding noted and she reports she feels she is on her period. [facility] has evaluated the patient and imaging reporting no retained products and CT abdomen unremarkable other than a 4 cm cyst noted on the ovary. Attempting to possibly transfer for tertiary treatment as patient may likely require D&C and higher level of care. Will initiate transfer and have discussed with patient and family and patient does not want to transfer although his understanding if transfer is necessary. Review of systems: Constitutional: reports of fatigue, reports continued fever, or chills Cardiovascular: No reports of chest pain or palpitations Respiratory: No reports of shortness of breath or cough GI: reports of nausea, reports occasional vomiting, or diarrhea, reports abdominal discomfort : No reports of dysuria or retention Neurovascular: No reports of weakness or numbness All medications have been reviewed PHYSICAL EXAMINATION: GENERAL: The patient is alert and oriented x3, thin built. Well developed, ill- appearing., pale HEENT: Pupils are round and equally reacting to light. EOMI. No scleral icterus. No conjunctival pallor. Normocephalic, atraumatic. No pharyngeal erythema. No thyromegaly. CARDIOVASCULAR: S1 and S2 muffled PULMONARY: Chest is clear to auscultation, no wheezing or crackles. ABDOMEN: Soft, mildly tender on palpation, thin, normoactive bowel sounds. No palpable organomegaly. MUSCULOSKELETAL: No joint swelling or deformity. EXTREMITIES: No cyanosis, clubbing, or pedal edema. NEUROLOGICAL: Gross neurological examination did not reveal any focal deficits. SKIN: Maculopapular rash that is diffuse although spreading on face including upper and lower extremities and torso Assessment: Abdominal pain with nausea, fever, headaches and bodyaches with sepsis, present on admission Neutropenia and thrombocytopenia, concerns for DIC, undergoing workup and hematology/oncology consulted Sepsis, present on admission, unknown exact etiology with fevers, diffuse rash, leukopenia, tachycardia Diffuse rash of upper and lower extremities along with abdomen and torso, concern for allergic reaction. Medications being adjusted Recent elective in middle of August of this year, previous in March 2024 Vaping with tobacco use GI prophylaxis DVT prophylaxis Full code Plan: Patient is admitted with features of sepsis with multiple visits to the ER and recent outpatient clinic elective on September 09 of this year and previous in March of 2024 and patient reported no complications. Patient had 2-3 extra visits to the ER with abdominal pain and urinary symptoms send on Macrobid and other antibiotics and sent home and encouraged to follow-up outpatient with primary care provider. Patient currently has no primary care provider and will be provided with resources. Patient also has no insurance and has been instructed to follow-up and apply for Medicaid. Patient has had multiple images including ultrasounds and gynecology evaluation and not concerned of any retained products, ultrasound did not display any retained conception products. Patient reports she is bleeding vaginally and believes she is on her period again. Patient may likely require D&C and will attempt to discuss with [facility] regarding this. Attempted transfer to multiple hospitals and have been reviewed by their medical Board committee and denied the transfer as they are at capacity. Patient does not want to transfer given she will be by herself if transferred to a different facility as her boyfriend works as well as other family members. Discussed with other consultations and also recommend possible transfer and will attempt to discuss with [facility] again regarding D&C. CT abdomen pelvis unremarkable other than a 4 cm cyst on the ovary Neurology also following for this extensive headache and is scheduled with MRI and MRA of the brain done and was negative. Discussing possible LP as patient remains febrile and neutropenic. Interventional radiology consulted although refused to do the LP given her platelet count and white blood count. d-dimer was elevated and CT ordered of the chest and pending. venous dopplers done of lower extremities and were negative. Hem/Onc consulted and DIC workup has been initiated. The impression and plan of care has been dictated by Jennifer Gaspar, Nurse Practitioner as directed. Dr. Otoniel MD I have performed a history and examination and MDM of this patient, discussed the same with the dictator, and agree with the dictator's assessment and plan as written ,documented as a scribe. Based on total visit time, I have performed more than 50% of the visit. Objective - Vital Signs Vital signs: Vital Signs Temp 99.9 F H 10/17/24 08:36 Pulse 107 H 10/17/24 08:36 Resp 17 10/17/24 08:36 BP 113/74 10/17/24 08:36 Pulse Ox 98 10/17/24 08:36 FiO2 Intake & Output 02/10/17/24 10/17/24 18:59 06:59 18:59 Intake Total 1976 1672 181 Balance 1976 6573 780 Weight 49.895 kg Intake: Oral 1976 3208 287 Other: Voiding Method Toilet Toilet # Voids 5 3 # Bowel Movements 4 1 - Labs CBC & Chem 7: 10/17/24 05:18 10/17/24 05:18 Labs: Abnormal Lab Results - Last 24 Hours (Table) 10/16/24 10/16/24 10/17/24 Range/Units 05:26 14:55 05:18 WBC (4.50-10.00) X 10*3/uL RBC (4.10-5.20) X 10*6/uL Hgb (12.0-15.0) g/dL Hct (37.2-46.3) % Plt Count (140-440) X 10*3/uL MPV (9.5-12.2) FL Lymphocytes # (0.90-5.00) X 10*3/uL Monocytes # (0.20-1.00) X 10*3/uL Eosinophils # (0.04-0.35) X 10*3/uL Immature Plt Fraction (1.1-6.1) % PT 13.0 H (10.0-12.5) sec INR 1.2 H (<1.2) APTT 34.1 H (22.0-30.0) sec D-Dimer 29.87 H (<0.60) mg/L FEU Sodium (137-145) mmol/L Glucose (74-99) mg/dL Calcium (8.4-10.2) mg/dL AST (14-36) U/L C-Reactive Protein (0.00-0.80) mg/dL Total Protein (6.3-8.2) g/dL Albumin (3.5-5.0) g/dL Procalcitonin 0.52 H 4.55 H (0.02-0.50) ng/mL 10/17/24 10/17/24 Range/Units 05:18 05:18 WBC 2.86 L (4.50-10.00) X 10*3/uL RBC 3.42 L (4.10-5.20) X 10*6/uL Hgb 10.4 L (12.0-15.0) g/dL Hct 30.1 L (37.2-46.3) % Plt Count 73 L (140-440) X 10*3/uL MPV 13.3 H (9.5-12.2) FL Lymphocytes # 0.21 L (0.90-5.00) X 10*3/uL Monocytes # 0.08 L (0.20-1.00) X 10*3/uL Eosinophils # 0 L (0.04-0.35) X 10*3/uL Immature Plt Fraction 14.8 H (1.1-6.1) % PT (10.0-12.5) sec INR (<1.2) APTT (22.0-30.0) sec D-Dimer (<0.60) mg/L FEU Sodium 134 L (137-145) mmol/L Glucose 120 H (74-99) mg/dL Calcium 8.2 L (8.4-10.2) mg/dL AST 60 H (14-36) U/L C-Reactive Protein 16.70 H (0.00-0.80) mg/dL Total Protein 5.4 L (6.3-8.2) g/dL Albumin 3.0 L (3.5-5.0) g/dL Procalcitonin (0.02-0.50) ng/mL Microbiology - Last 24 Hours (Table) 10/15/24 15:52 Blood Culture - Preliminary Blood
[2024-10-18 03:16] LABS: % Iron Saturation <1.88 (12.00-45.00); Iron <6 UG/DL (50-170); Total Iron Binding Capacity 319 UG/DL (228-460)
[2024-10-18] MEDS: FUROSEMIDE 10 MG/ML 2 ML VIAL IV ONE (05:13)
[2024-10-18] MEDS: VANCOMYCIN TROUGH DUE 1 EACH MISC MISCELLANE ONE (06:21)
[2024-10-18 07:04] LABS: INR 1.1 (<1.2); Partial Thromboplastin Time 26.7 sec (22.0-30.0); Prothrombin Time 12.2 sec (10.0-12.5)
[2024-10-18 07:40] LABS: ALT 65 U/L (4-34); AST 143 U/L (14-36); African American GFR (CKD) >90 (>60 ml/min/1.73 sqM); Albumin/Globulin Ratio 1.2; Alkaline Phosphatase 89 U/L (38-126); Anion Gap 8 mmol/L; Blood Urea Nitrogen 9 mg/dL (7-17); Calcium 8.3 mg/dL (8.4-10.2); Carbon Dioxide 27 mmol/L (22-30); Chloride 102 mmol/L (98-107); Globulin 2.5 g/dL; Glucose 96 mg/dL (74-99); Non-African American GFR(CKD) >90 (>60 ml/min/1.73 sqM); Potassium 4.3 mmol/L (3.5-5.1); Sodium 137 mmol/L (137-145); Total Bilirubin 0.6 mg/dL (0.2-1.3); Total Protein 5.5 g/dL (6.3-8.2)
[2024-10-18 10:57] LABS: Basophils % (A) 0 %; Eosinophils % (A) 0 %; HCT 32.6 % (34.0-46.0); HGB 10.5 gm/dL (11.4-16.0); Hypochromasia Slight; Lymphocytes # (A) 0.7 k/uL (1.0-4.8); Lymphocytes % (A) 17 %; MCH 29.6 pg (25.0-35.0); MCHC 32.1 g/dL (31.0-37.0); MCV 92.2 fL (80.0-100.0); Mean Platelet Volume 10.7; Monocytes # (A) 0.1 k/uL (0-1.0); Monocytes % (A) 2 %; Neutrophils % (A) 79 %; RBC 3.54 m/uL (3.80-5.40); WBC 3.8 k/uL (3.8-10.6)
[2024-10-18 11:01] LABS: Platelet Count 148 k/uL (150-450)
--- NOTE | 2024-10-18 11:33 | CA ---
Transthoracic Echo Report Name: Anh Quevedo Age: 19 Gender: F : 2005 Exam Date: 10/17/2024 10:18 Exam Location: [facility] Ht (in): 65 Wt (lb): 110 Ordering Physician: Jennifer Gaspar Attending/Referring Phys: Biblical Studies Professor Kiki Etienne RDCS Procedure CPT: Indications: sepsis, elev d dimer Cardiac Hx: Technical Quality: Good Contrast 1: Total Dose (mL): Contrast 2: Total Dose (mL): MEASUREMENTS (Male / Female) Normal Values 2D ECHO LV Diastolic Diameter PLAX 4.4 cm 4.2 - 5.9 / 3.9 - 5.3 cm LV Systolic Diameter PLAX 2.9 cm IVS Diastolic Thickness 0.8 cm 0.6 - 1.0 / 0.6 - 0.9 cm LVPW Diastolic Thickness 0.6 cm 0.6 - 1.0 / 0.6 - 0.9 cm LV Relative Wall Thickness 0.3 LVOT Diameter 1.7 cm LV Diastolic Volume MOD BP 69.6 cm??? 67 - 155 / 56 - 104 cm??? LV Systolic Volume MOD BP 22.2 cm??? 22 - 58 / 19 - 49 cm??? LV Ejection Fraction MOD BP 68.2 % >= 55 % LV Cardiac Index MOD BP 3248.6 cm???/min???m??? LV Diastolic Volume MOD 4C 69.6 cm??? LV Systolic Volume MOD 4C 23.5 cm??? LV Ejection Fraction MOD 4C 66.3 % LV Cardiac Index MOD 4C 3159.6 cm???/min???m??? LV Diastolic Length 4C 7.0 cm LV Systolic Length 4C 5.4 cm LV Diastolic Volume MOD 2C 65.3 cm??? LV Systolic Volume MOD 2C 20.2 cm??? LV Ejection Fraction MOD 2C 69.0 % LV Cardiac Index MOD 2C 3088.7 cm???/min???m??? LV Diastolic Length 2C 7.5 cm LV Systolic Length 2C 5.2 cm LA Volume 17.0 cm??? 18 - 58 / 22 - 52 cm??? LA Volume Index 11.3 cm???/m??? 16 - 28 cm???/m??? DOPPLER AV Peak Velocity 150.4 cm/s AV Peak Gradient 9.1 mmHg AV Mean Velocity 104.4 cm/s AV Mean Gradient 4.8 mmHg AV Velocity Time Integral 23.4 cm LVOT Peak Velocity 134.3 cm/s LVOT Peak Gradient 7.2 mmHg LVOT Velocity Time Integral 19.2 cm LVOT Stroke Volume 44.1 cm??? LVOT Stroke Volume Index 28.7 ml/m??? LVOT Cardiac Index 3016.9 cm???/min???m??? AV Area Cont Eq vti 1.9 cm??? AV Area Cont Eq pk 2.1 cm??? MV Area PHT 3.6 cm??? Mitral E Point Velocity 90.5 cm/s Mitral A Point Velocity 50.7 cm/s Mitral E to A Ratio 1.8 MV Deceleration Time 210.2 ms TR Peak Velocity 213.2 cm/s TR Peak Gradient 18.2 mmHg Right Atrial Pressure 15.0 mmHg Pulmonary Artery Systolic Pressu 33.2 mmHg Right Ventricular Systolic Press 33.2 mmHg PV Peak Velocity 92.5 cm/s PV Peak Gradient 3.4 mmHg FINDINGS Left Ventricle Left ventricular ejection fraction is estimated at 60-65 %. Left ventricular cavity size normal. Left ventricular wall thickness normal. No obvious regional wall motion abnormalities. Right Ventricle Normal right ventricular size and function. Right ventricular systolic pressure within normal limits. Right Atrium Normal right atrial size. Left Atrium Normal left atrial size. Mitral Valve Structurally normal mitral valve. No evidence for mitral valve prolapse. No mitral stenosis. Trace to mild mitral regurgitation. Aortic Valve Trileaflet aortic valve. No aortic valve stenosis or regurgitation. Tricuspid Valve Structurally normal tricuspid valve. No tricuspid stenosis. Mild tricuspid regurgitation. Pulmonic Valve Structurally normal pulmonic valve. No pulmonic stenosis. Trace pulmonic regurgitation. Pericardium No pericardial effusion. Aorta Normal size aortic root and proximal ascending aorta. CONCLUSIONS Left ventricular ejection fraction is estimated at 60-65 %. No obvious regional wall motion abnormalities. Normal right ventricular size and function. No significant valvular dysfunction Previewed by: Dr Fitz Mosquera (Electronically Signed) Final Date: 18 October 2024 11:32
--- NOTE | 2024-10-18 13:09 | P.PN ---
Subjective Progress Note Date: 10/18/24 SURGICAL PROGRESS NOTE CHIEF COMPLAINT: sepsis HISTORY OF PRESENT ILLNESS: Patient is up and walking in the room. She reports feeling better. She does complain of epigastric abdominal discomfort. She did have some nausea and vomiting yesterday. Afebrile. WBC is 3.8 Hgb 10.5 platelets 148. Chest CTA suboptimal study without acute central pulmonary embolism. PHYSICAL EXAM: VITAL SIGNS: Reviewed. GENERAL: Well-developed in no acute distress. ABDOMEN: Soft. Nondistended. Mild tenderness epigastric area NEUROLOGIC: Alert and oriented. Cranial nerves II through XII grossly intact. SKIN: rash ASSESSMENT: 1. Abdominal pain resolved. No acute findings on CT scan 2. Sepsis with unknown etiology with fever, headache, body aches and diffuse rash 3. Pancytopenic 4. Status post elective September 05, 2024 PLAN: -No surgical intervention planned -Continue antibiotics -Agree with reevaluation by TRACK SURFACING MACHINE OPERATOR service for possible D&C -Patient evaluated by hematology for possible DIC -Continue supportive care Physician Deployment Engineer note has been reviewed by physician. Signing provider agrees with the documented findings, assessment, and plan of care. Objective - Vital Signs Vital signs: Vital Signs Temp 99.5 F 10/18/24 12:22 Pulse 97 10/18/24 12:22 Resp 16 10/18/24 12:22 BP 105/68 10/18/24 07:19 Pulse Ox 100 10/18/24 12:22 FiO2 Intake & Output 10/17/24 10/18/24 10/18/24 18:59 06:59 18:59 Intake Total 1994 0 Balance 1994 0 Intake: Oral 1994 Blood Product 0 Pooled Cryoprecipitate 0 Unit [id number] Other: Voiding Method Toilet # Voids 5 1 # Bowel Movements 2 - Labs CBC & Chem 7: 10/18/24 10:44 10/18/24 06:03 Labs: Abnormal Lab Results - Last 24 Hours (Table) 10/17/24 10/17/24 10/17/24 Range/Units 13:07 15:08 15:08 RBC (3.80-5.40) m/uL Hgb (11.4-16.0) gm/dL Hct (34.0-46.0) % Plt Count (150-450) k/uL Lymphocytes # (1.0-4.8) k/uL Haptoglobin 27.0 L (31.2-198.0) mg/dL Fibrinogen 134 L (200-500) mg/dL Calcium (8.4-10.2) mg/dL Iron <6 L (50-170) UG/DL % Saturation <1.88 L (12.00-45.00) Ferritin 380.0 H (10.0-291.0) ng/mL AST (14-36) U/L ALT (4-34) U/L Lactate Dehydrogenase 664 H (120-246) U/L Total Protein (6.3-8.2) g/dL Albumin (3.5-5.0) g/dL Vitamin B12 1746.0 H (200.0-944.0) pg/mL 10/18/24 10/18/24 Range/Units 06:03 10:44 RBC 3.54 L (3.80-5.40) m/uL Hgb 10.5 L (11.4-16.0) gm/dL Hct 32.6 L (34.0-46.0) % Plt Count 148 L D (150-450) k/uL Lymphocytes # 0.7 L (1.0-4.8) k/uL Haptoglobin (31.2-198.0) mg/dL Fibrinogen (200-500) mg/dL Calcium 8.3 L (8.4-10.2) mg/dL Iron (50-170) UG/DL % Saturation (12.00-45.00) Ferritin (10.0-291.0) ng/mL AST 143 H (14-36) U/L ALT 65 H (4-34) U/L Lactate Dehydrogenase (120-246) U/L Total Protein 5.5 L (6.3-8.2) g/dL Albumin 3.0 L (3.5-5.0) g/dL Vitamin B12 (200.0-944.0) pg/mL Microbiology - Last 24 Hours (Table) 10/15/24 15:52 Blood Culture - Preliminary Blood 10/16/24 16:59 Blood Culture - Preliminary Blood
--- NOTE | 2024-10-18 13:28 | P.PN ---
Progress Note - Text Went to patient's room for consultation for lumbar puncture. At this time patient refused to have lumbar puncture done. I told patient if she changes her mind she can call pain clinic to do the lumbar puncture. They understand.
--- NOTE | 2024-10-18 13:34 | P.PN ---
Subjective Progress Note Date: 10/18/24 Patient continues to feel unwell as a general rule. Objective - Vital Signs Vital signs: Vital Signs Temp 99.5 F 10/18/24 12:22 Pulse 97 10/18/24 12:22 Resp 16 10/18/24 12:22 BP 105/68 10/18/24 07:19 Pulse Ox 100 10/18/24 12:22 FiO2 Intake & Output 10/17/24 10/18/24 10/18/24 18:59 06:59 18:59 Intake Total 1994 0 Balance 1994 0 Intake: Oral 1994 Blood Product 0 Pooled Cryoprecipitate 0 Unit [id number] Other: Voiding Method Toilet # Voids 5 1 # Bowel Movements 2 - Exam In general, this is a well-developed, well-nourished white female who looks fairly uncomfortable as she continues to be nauseated. Her abdomen is nondistended, soft, nontender, and without any apparent masses. Her extremities without any cyanosis, clubbing, or edema and are nontender to palpation bilaterally. - Labs CBC & Chem 7: 10/18/24 10:44 10/18/24 06:03 Labs: Abnormal Lab Results - Last 24 Hours (Table) 10/17/24 10/17/24 10/18/24 Range/Units 15:08 15:08 06:03 RBC (3.80-5.40) m/uL Hgb (11.4-16.0) gm/dL Hct (34.0-46.0) % Plt Count (150-450) k/uL Lymphocytes # (1.0-4.8) k/uL Haptoglobin 27.0 L (31.2-198.0) mg/dL Calcium 8.3 L (8.4-10.2) mg/dL Iron <6 L (50-170) UG/DL % Saturation <1.88 L (12.00-45.00) Ferritin 380.0 H (10.0-291.0) ng/mL AST 143 H (14-36) U/L ALT 65 H (4-34) U/L Lactate Dehydrogenase 664 H (120-246) U/L Total Protein 5.5 L (6.3-8.2) g/dL Albumin 3.0 L (3.5-5.0) g/dL Vitamin B12 1746.0 H (200.0-944.0) pg/mL 10/18/24 Range/Units 10:44 RBC 3.54 L (3.80-5.40) m/uL Hgb 10.5 L (11.4-16.0) gm/dL Hct 32.6 L (34.0-46.0) % Plt Count 148 L D (150-450) k/uL Lymphocytes # 0.7 L (1.0-4.8) k/uL Haptoglobin (31.2-198.0) mg/dL Calcium (8.4-10.2) mg/dL Iron (50-170) UG/DL % Saturation (12.00-45.00) Ferritin (10.0-291.0) ng/mL AST (14-36) U/L ALT (4-34) U/L Lactate Dehydrogenase (120-246) U/L Total Protein (6.3-8.2) g/dL Albumin (3.5-5.0) g/dL Vitamin B12 (200.0-944.0) pg/mL Microbiology - Last 24 Hours (Table) 10/15/24 15:52 Blood Culture - Preliminary Blood 10/16/24 16:59 Blood Culture - Preliminary Blood Assessment and Plan (1) Status post elective Current Visit: Yes Status: Acute Priority: High Code(s): Z98.890 - OTHER SPECIFIED POSTPROCEDURAL STATES SNOMED Code(s): 584777799 (2) Sepsis Current Visit: Yes Status: Acute Priority: High Code(s): A41.9 - SEPSIS, UNSPECIFIED ORGANISM SNOMED Code(s): 10268304 Plan: Request has been made from another service, which 1 is unclear, to proceed with D&C in order to rule out any retained products of conception despite the fact that imaging demonstrates no findings consistent with that diagnosis. I actually will agree to proceed with that given the fact that her hCG remains elevated though very low and this will allow us to rule out the uterus and her elective as a source for possible sepsis. I have discussed this with the patient and her significant other and they have agreed to proceed. The risks and complications have been discussed at length including the risk for bleeding, transfusion, infection, and injury to local structures, specifically uterine perforation and subsequent Asherman syndrome. She has understood and agrees to proceed. I have contacted the operating room to plan for dilation and curettage tomorrow as soon as the operating room has availability. She will be kept without anything by mouth after midnight tonight.
--- NOTE | 2024-10-18 14:58 | P.PN ---
Subjective Progress Note Date: 10/18/24 I am following-up with patient and she feels better today compared to yesterday. Feels headache is improved. She has not been eating or drinking since concern for vomiting. Denies visual disturbance. Primary team attempted to transfer her to different facilities yesterday and was unsuccessful. Objective - Vital Signs Vital signs: Vital Signs Temp 99.5 F 10/18/24 12:22 Pulse 97 10/18/24 12:22 Resp 16 10/18/24 12:22 BP 105/68 10/18/24 07:19 Pulse Ox 100 10/18/24 12:22 FiO2 Intake & Output 10/17/24 10/18/24 10/18/24 18:59 06:59 18:59 Intake Total 1994 0 Balance 1994 0 Intake: Oral 1994 Blood Product 0 Pooled Cryoprecipitate 0 Unit [id number] Other: Voiding Method Toilet # Voids 5 1 # Bowel Movements 2 - Exam General: Sitting up on side of bed and is not in acute distress. Intergumentary: Erythematous rash that is diffuse and including face. Neuro: Patient is awake, alert, oriented to self, place and time. Is following simple commands. No aphasia. Pupils are 4mm and reactive to light bilaterally. VFF to confrontation. No facial weakenss. Motor: Strength is 5/5 throughout. Some of the workup during this hospital visit consisted of: Tmax is 100.1 F in the last 24 hours White blood cells 1.2K-->2.86K-->3.8K PT 13, PTT 34, D-Dimer 29.87 Platelets are as low as 60K. Slightly elevated AST. hCG qualitative is detected and quantitative is 20.4 and repeat is 19.6 Sodium is 133, calcium is 7.6, AST is 58 ALT is 32 CRP 13.80 Influenza A/B/RSV/group A strep/SARS-CoV-2 PCR are nondetected HIV is nonreactive Abdominal ultrasound is unremarkable MRI Brain: Is unremarkable study MRA head/MRV head: Normal. CT abdomen/Pelvis: 4.2cm left adnexal or ovarian mass most likely a cyst. Short term follow-up pelvic is recommended. - Labs CBC & Chem 7: 10/18/24 10:44 10/18/24 06:03 Labs: Abnormal Lab Results - Last 24 Hours (Table) 10/17/24 10/17/24 10/18/24 Range/Units 15:08 15:08 06:03 RBC (3.80-5.40) m/uL Hgb (11.4-16.0) gm/dL Hct (34.0-46.0) % Plt Count (150-450) k/uL Lymphocytes # (1.0-4.8) k/uL Haptoglobin 27.0 L (31.2-198.0) mg/dL Calcium 8.3 L (8.4-10.2) mg/dL Iron <6 L (50-170) UG/DL % Saturation <1.88 L (12.00-45.00) Ferritin 380.0 H (10.0-291.0) ng/mL AST 143 H (14-36) U/L ALT 65 H (4-34) U/L Lactate Dehydrogenase 664 H (120-246) U/L Total Protein 5.5 L (6.3-8.2) g/dL Albumin 3.0 L (3.5-5.0) g/dL Vitamin B12 1746.0 H (200.0-944.0) pg/mL 10/18/24 Range/Units 10:44 RBC 3.54 L (3.80-5.40) m/uL Hgb 10.5 L (11.4-16.0) gm/dL Hct 32.6 L (34.0-46.0) % Plt Count 148 L D (150-450) k/uL Lymphocytes # 0.7 L (1.0-4.8) k/uL Haptoglobin (31.2-198.0) mg/dL Calcium (8.4-10.2) mg/dL Iron (50-170) UG/DL % Saturation (12.00-45.00) Ferritin (10.0-291.0) ng/mL AST (14-36) U/L ALT (4-34) U/L Lactate Dehydrogenase (120-246) U/L Total Protein (6.3-8.2) g/dL Albumin (3.5-5.0) g/dL Vitamin B12 (200.0-944.0) pg/mL Microbiology - Last 24 Hours (Table) 10/15/24 15:52 Blood Culture - Preliminary Blood 10/16/24 16:59 Blood Culture - Preliminary Blood Assessment and Plan Assessment: This is a 19-year-old young male who had elective that is medically induced about 6 weeks ago and for the last 3 days she is having headache with nausea chills. She is also having fevers and rash. Patient is not confused and no rneck igidity. Her HcG level is elevated. Cephalgia with fever, leukopenia, thrombocytopenia, diffuse rash, elevated PT, PTT and abdominal pain with Nausea and vomiting. I am concerned about Disse minated Intravascular Coagulopathy (DIC): Unsure cause but rule out ectopic vs molar because of persistent elevated hCG: I feel less likely meningitis or encephalitis. MRI Brain, MRA head head/MRV are unremarkable. She is currently on Ceftriaxone. Plan: .D. consulted anesthesiologist for lumbar puncture but opted out of performing since has thrombocytopenia. Patient is currently of Ceftriaxone 2gm bid and Vacomycin per I.D. team. Hematology is consulted. I.D. is on board. SOFTWARE SYSTEMS ENGINEER team is board. Consider D&C. General Surgery team is consulted Will defer the rest of the medical management to primary other specialist The plan is discussed with patient and her boyfriend. Also discussed with primary team N.P. Time with Patient: Less than 30
--- NOTE | 2024-10-18 20:12 | P.CONS ---
History of Present Illness - Reason for Consult Consult date: 10/18/24 neutropenia, thrombocytopenia Requesting physician: Jennifer Gaspar - Chief Complaint fever, headache, abd pain - History of Present Illness Patient is a 19-year-old female who presented to the emergency room for headache, fever, body aches, abdominal pain and dysuria. Patient underwent elective approximately 6 weeks ago. She reports since she has had dysuria and has been treated for UTIs and has been on multiple antibiotic regimens, most recently Macrobid and Keflex. She reports she began to having progressing symptoms of headache, fever, body aches and abdominal pain which caused her to present to the emergency room for further evaluation. Patient has had extensive workup since admit with multiple specialties consulted. She has continued on empiric antibiotics.. Thus far infectious workup has been negative. Upon admit CBC showed pancytopenia. WBC 1.2, ANC 800, hemoglobin 12.6, platelets 72,000. White counts and platelets have been slowly improving since admit. Today WBC now normal at 3.8. Platelets improved to 148,000. Hemoglobin 10.5. DIC workup was consistent with at least mild DIC and patient was given 1 dose of cryoprecipitate yesterday. DIC labs today negative. Nutritional studies consistent with iron deficiency anemia. Hemolysis workup negative. At today's visit patient is reporting she is feeling improved. CT abdomen pelvis showing 4.2 cm left adnexal or ovarian mass most likely a cyst with no acute changes within the abdomen or pelvis. Pelvic ultrasound showing 3.6 cm simple appearing thin-walled cyst in the left ovary. No sonographic evidence for retained products of conception. BALL MACHINE OPERATOR is following case and will plan for D&C tomorrow. Due to elevated D-dimer bilateral lower extremity Doppler was obtained which was negative for DVT. CTA chest negative for PE. Patient has been noted to have intermittent fever since admit, Tmax 102.1, no fever over the last 24 hours. Reporting feeling improved since admit Review of Systems 10 point ROS is negative except as stated in the HPI Past Medical History Past Medical History: No Reported History History of Any Multi-Drug Resistant Organisms: None Reported Past Surgical History: No Surgical Hx Reported Additional Past Surgical History / Comment(s): Medical Past Psychological History: No Psychological Hx Reported Smoking Status: Vaper Past Alcohol Use History: None Reported Past Drug Use History: None Reported Medications and Allergies Home Medications Medication Instructions Recorded Confirmed Type Ibuprofen 400 mg PO Q8H PRN #30 tablet 10/12/24 10/15/24 Rx Acetaminophen Tab [Tylenol Tab] 500 mg PO Q6H PRN 10/15/24 10/15/24 History Allergies Allergy/AdvReac Type Severity Reaction Status Date / Time No Known Allergies Allergy Verified 10/15/24 16:09 Physical Exam Vitals: Vital Signs Temp Pulse Pulse Resp BP BP Pulse Ox 10/18/24 07:19 99.0 F 85 16 105/68 94 L 10/18/24 01:29 98.9 F 108 H 15 103/64 95 10/17/24 20:59 98.2 F 85 18 108/72 10/17/24 20:58 98.0 F 88 18 108/72 10/17/24 20:17 93 16 110/73 10/17/24 19:57 98.0 F 93 20 117/72 10/17/24 19:49 98.1 F 92 18 103/69 10/17/24 19:48 98.1 F 99 18 105/70 10/17/24 19:24 98.7 F 90 15 113/75 99 10/17/24 15:37 98.5 F 85 17 114/74 99 Intake and Output 10/17/24 10/18/24 10/18/24 22:59 06:59 14:59 Intake Total 0 Balance 0 Intake: Blood Product 0 Pooled Cryoprecipitate 0 Unit [id number] Other: # Voids 1 - Constitutional General appearance: average body habitus, no acute distress - EENT Eyes: anicteric sclerae, EOMI ENT: hearing grossly normal - Respiratory Respiratory: bilateral: CTA - Cardiovascular Rhythm: regular - Gastrointestinal General gastrointestinal: soft, no tenderness - Integumentary Integumentary: no cyanotic, no jaundiced, rash - Neurologic Neurologic: CNII-XII intact - Musculoskeletal Musculoskeletal: strength equal bilaterally - Psychiatric Psychiatric: A&O x's 3 Results CBC & Chem 7: 10/18/24 10:44 10/18/24 06:03 Labs: Abnormal Lab Results - Last 24 Hours (Table) 10/17/24 10/17/24 10/17/24 Range/Units 13:07 15:08 15:08 RBC (3.80-5.40) m/uL Hgb (11.4-16.0) gm/dL Hct (34.0-46.0) % Plt Count (150-450) k/uL Lymphocytes # (1.0-4.8) k/uL Haptoglobin 27.0 L (31.2-198.0) mg/dL Fibrinogen 134 L (200-500) mg/dL Calcium (8.4-10.2) mg/dL Iron <6 L (50-170) UG/DL % Saturation <1.88 L (12.00-45.00) Ferritin 380.0 H (10.0-291.0) ng/mL AST (14-36) U/L ALT (4-34) U/L Lactate Dehydrogenase 664 H (120-246) U/L Total Protein (6.3-8.2) g/dL Albumin (3.5-5.0) g/dL Vitamin B12 1746.0 H (200.0-944.0) pg/mL 10/18/24 10/18/24 Range/Units 06:03 10:44 RBC 3.54 L (3.80-5.40) m/uL Hgb 10.5 L (11.4-16.0) gm/dL Hct 32.6 L (34.0-46.0) % Plt Count 148 L D (150-450) k/uL Lymphocytes # 0.7 L (1.0-4.8) k/uL Haptoglobin (31.2-198.0) mg/dL Fibrinogen (200-500) mg/dL Calcium 8.3 L (8.4-10.2) mg/dL Iron (50-170) UG/DL % Saturation (12.00-45.00) Ferritin (10.0-291.0) ng/mL AST 143 H (14-36) U/L ALT 65 H (4-34) U/L Lactate Dehydrogenase (120-246) U/L Total Protein 5.5 L (6.3-8.2) g/dL Albumin 3.0 L (3.5-5.0) g/dL Vitamin B12 (200.0-944.0) pg/mL Microbiology - Last 24 Hours (Table) 10/15/24 15:52 Blood Culture - Preliminary Blood 02/25/25 16:59 Blood Culture - Preliminary Blood CT scan - abdomen: report reviewed CT scan - chest: report reviewed CT scan - pelvis: report reviewed MRI - head: report reviewed Venous US: report reviewed Assessment and Plan (1) Pancytopenia Current Visit: Yes Status: Acute Priority: High Code(s): D61.818 - OTHER PANCYTOPENIA SNOMED Code(s): 859960333 (2) Sepsis Current Visit: Yes Status: Acute Priority: High Code(s): A41.9 - SEPSIS, UNSPECIFIED ORGANISM SNOMED Code(s): 66017669 (3) Status post elective Current Visit: Yes Status: Acute Priority: High Code(s): Z98.890 - OTHER SPECIFIED POSTPROCEDURAL STATES SNOMED Code(s): 026391344 Plan: Pancytopenia, DIC: Presented to the emergency room for headache, fever, body aches, abdominal pain and dysuria. Patient underwent elective approximately 6 weeks ago. She reports since she has had dysuria and has been treated for UTIs and has been on multiple antibiotic regimens, most recently Macrobid and Keflex. She reports she began to having progressing symptoms of headache, fever, body aches and abdominal pain which caused her to present to the emergency room for further evaluation. -Patient has had extensive workup since admit with multiple specialties consulted. She has continued on empiric antibiotics.. Thus far infectious workup has been negative. Upon admit CBC showed pancytopenia. -WBC 1.2, ANC 800, hemoglobin 12.6, platelets 72,000. White counts and platelets have been slowly improving since admit. Today WBC now normal at 3.8. Platelets improved to 148,000. Hemoglobin 10.5. CBC from 07/22/23 showed normal counts -DIC workup was consistent with at least mild DIC and patient was given 1 dose of cryoprecipitate yesterday. DIC labs today negative. -Nutritional studies consistent with iron deficiency anemia, however due to concern for spesis, will hold IV iron at this time. Hemolysis and HLH workup negative. -CT abdomen pelvis showing 4.2 cm left adnexal or ovarian mass most likely a cyst with no acute changes within the abdomen or pelvis. Pelvic ultrasound showing 3.6 cm simple appearing thin-walled cyst in the left ovary. No sonographic evidence for retained products of conception. -Due to noted fevers, S/S, pancytopenia/DIC, and negative infectious workup, concerned for retained products of conception. BALL MACHINE OPERATOR is following case and will plan for D&C tomorrow -Pancytopenia, DIC likely r/t sepsis and possible reattained products of conception. Would expect counts to continue to improve as underlying acute process is treated -Continue to monitor CBC. Repeat DIC labs in the morning Case discussed with admitting team and neurology Dr attests: I have seen and examined pt, performed H&P, developed impression and plan of care. Discussed with dictator. Agree with documentation, dictated as a scribe.
[2024-10-19 04:14] LABS: Methylmalonic Acid 0.14 umol/L (<0.40)
--- NOTE | 2024-10-19 04:45 | P.PN ---
Subjective Progress Note Date: 10/18/24 This is a 19-year-old female who presented to the emergency department with feeling fever headache and bodyaches with fatigue and decreased appetite with abdominal pain for the last 3 days that had been progressively getting worse. Patient reports she had an on 09/05/2024 and was seen in the ER a week or so after that with some genitourinary symptoms and also another subsequent visit with urinary symptoms and hCG had been going down. Patient reports this is her second and her previous 1 was in April 19. Patient reports her last menstrual period is currently now as she is on her menstrual cycle and denies any other significant medical problems. Patient reports she does not c urrently have a primary care provider and no significant history other than vaping with tobacco. Patient denies marijuana or alcohol use or illicit drug use. On admission patient was noted to have a fever with tachycardia, and extremely low white count of 1.2, hemoglobin 12.6, platelets 72 and on the downward trend as this morning platelets are decreased at 60. White count slightly improved at 2.3 and hemoglobin is 10.6. Sodium was noted to be low at 129 although with gentle hydration overnight improved at 133, creatinine and other electrolytes within normal limits. AST mildly elevated at 66 and trending down, CRP is elevated at 13.8, procalcitonin is 0.52 urinalysis with large blood otherwise negative and virology testing including influenza, RSV, COVID are all negative as well as strep. Patient admitted with hematology/oncology along with infectious disease, gynecology, and neurology on consult. Patient did undergo abdominal ultrasound which was unremarkable ultrasound, patient also underwent pelvic ultrasound reporting no evidence of retained products of conception. CT abdomen pelvis is ordered and pending at this time as patient continues to have fevers and low white count. Undetermined source of infection although patient reports has had multiple antibiotic rounds in the outpatient setting for frequent urinary tract infections. Patient is maintained on broad-spectrum antibiotics with infectious disease following and appears to have developed an allergic reaction to one of the medications. Antibiotics being adjusted per infectious disease and will continue with as needed Benadryl and calamine lotion. 10/17/2024 Patient is seen in follow-up today continues to have fevers although are under downward trend. Patient continues with rash that is maculopapular and diffuse although appears slightly worse this morning, will give Benadryl. Hematology/oncology being consulted with concerns of possible DIC. White count remains low although is improving above 2 today. Platelets are at 73. Patient does have some mild vaginal bleeding noted and she reports she feels she is on her period. LIDAR ANALYST has evaluated the patient and imaging reporting no retained products and CT abdomen unremarkable other than a 4 cm cyst noted on the ovary. Attempting to possibly transfer for tertiary treatment as patient may likely require D&C and higher level of care. Will initiate transfer and have discussed with patient and family and patient does not want to transfer although his understanding if transfer is necessary. 10/18/2024 Patient is seen in follow-up having low-grade temps although much improved and patient's mentation and overall clinical picture is improving. Rash all over body is less intense. Multiple consultations following including hematology and is status post cryoprecipitate yesterday. Fibrinogen is improved and white count is trending up above 3 today and platelets have also improved above 150. Lengthy discussion was had about LP and ruling out other viral etiologies and/or infections and patient initially agreeable although there was further discussion of being reevaluated by LIDAR ANALYST for D&C and patient wants to wait on LP. Pain management was consulted for this. Review of systems: Constitutional: reports of fatigue, reports continued fever although feeling a little better, or chills Cardiovascular: No reports of chest pain or palpitations Respiratory: No reports of shortness of breath or cough GI: reports of nausea, reports occasional vomiting but improving, or diarrhea, reports abdominal discomfort that is less intense : No reports of dysuria or retention Neurovascular: No reports of weakness or numbness All medications have been reviewed PHYSICAL EXAMINATION: GENERAL: The patient is alert and oriented x3, thin built. Well developed, ill- appearing., pale HEENT: Pupils are round and equally reacting to light. EOMI. No scleral icterus. No conjunctival pallor. Normocephalic, atraumatic. No pharyngeal erythema. No thyromegaly. CARDIOVASCULAR: S1 and S2 muffled PULMONARY: Chest is clear to auscultation, no wheezing or crackles. ABDOMEN: Soft, mildly tender on palpation, thin, normoactive bowel sounds. No palpable organomegaly. MUSCULOSKELETAL: No joint swelling or deformity. EXTREMITIES: No cyanosis, clubbing, or pedal edema. NEUROLOGICAL: Gross neurological examination did not reveal any focal deficits. SKIN: Maculopapular rash that is diffuse and less reddened, appears to be improving Assessment: Abdominal pain with nausea, fever, headaches and bodyaches with sepsis, present on admission Neutropenia and thrombocytopenia, concerns for DIC, undergoing workup and hematology/oncology following Sepsis, present on admission, unknown exact etiology with fevers, diffuse rash, leukopenia, tachycardia Diffuse rash of upper and lower extremities along with abdomen and torso, concern for allergic reaction. Medications being adjusted Recent elective in middle of August of this year, previous in March 2024 Vaping with tobacco use GI prophylaxis DVT prophylaxis Full code Plan: Patient is admitted with features of sepsis with multiple visits to the ER and recent outpatient clinic elective on September 09 of this year and previous in March of 2024 and patient reported no complications. Patient had 2-3 extra visits to the ER with abdominal pain and urinary symptoms send on Macrobid and other antibiotics and sent home and encouraged to follow-up outpatient with primary care provider. Patient currently has no primary care provider and will be provided with resources. Patient also has no insurance and has been instructed to follow-up and apply for Medicaid. Patient has had multiple images including ultrasounds and gynecology evaluation and not concerned of any retained products, ultrasound did not display any retained conception products. Patient reports she is bleeding vaginally and believes she is on her period again. Patient may likely require D&C and will attempt to discuss with LIDAR ANALYST regarding this. Attempted transfer to multiple hospitals and have been reviewed by their medical Board committee and denied the transfer as they are at capacity. Patient does not want to transfer given she will be by herself if transferred to a different facility as her boyfriend works as well as other family members. Discussed with other consultations and also recommend possible transfer and will attempt to discuss with LIDAR ANALYST again regard ing D&C. LIDAR ANALYST is planning for D&C possibly tomorrow CT abdomen pelvis unremarkable other than a 4 cm cyst on the ovary Neurology also following for this extensive headache and is scheduled with MRI and MRA of the brain done and was negative. Discussing possible LP as patient remains febrile and neutropenic. Interventional radiology consulted although refused to do the LP given her platelet count and white blood count. Platelet count is improving and pain management was consulted for LP although patient refused at this time I would like to proceed with D&C first. Discussed the importance of ruling out other infections and viral etiologies and patient verbalized understanding of refusing LP. d-dimer was elevated and CT was negative for PE. venous dopplers done of lower extremities and were negative. Hem/Onc following and DIC workup has been initiated. The impression and plan of care has been dictated by Jennifer Gaspar, Nurse Practitioner as directed. Dr. Otoniel MD I have performed a history and examination and MDM of this patient, discussed the same with the dictator, and agree with the dictator's assessment and plan as written ,documented as a scribe. Based on total visit time, I have performed more than 50% of the visit. Objective - Vital Signs Vital signs: Vital Signs Temp 99.0 F 10/18/24 07:19 Pulse 85 10/18/24 07:19 Resp 16 10/18/24 07:19 BP 105/68 10/18/24 07:19 Pulse Ox 94 L 10/18/24 07:19 FiO2 Intake & Output 10/17/24 10/18/24 10/18/24 18:59 06:59 18:59 Intake Total 1994 0 Balance 1994 0 Intake: Oral 1994 Blood Product 0 Pooled Cryoprecipitate 0 Unit [id number] Other: Voiding Method Toilet # Voids 5 1 # Bowel Movements 2 - Labs CBC & Chem 7: 10/18/24 10:44 10/18/24 06:03 Labs: Abnormal Lab Results - Last 24 Hours (Table) 10/17/24 10/17/24 10/17/24 Range/Units 05:18 13:07 15:08 WBC 2.86 L (4.50-10.00) X 10*3/uL RBC 3.42 L (4.10-5.20) X 10*6/uL Hgb 10.4 L (12.0-15.0) g/dL Hct 30.1 L (37.2-46.3) % Plt Count 73 L (140-440) X 10*3/uL MPV 13.3 H (9.5-12.2) FL Lymphocytes # 0.21 L (0.90-5.00) X 10*3/uL Monocytes # 0.08 L (0.20-1.00) X 10*3/uL Eosinophils # 0 L (0.04-0.35) X 10*3/uL Immature Plt Fraction 14.8 H (1.1-6.1) % Haptoglobin (31.2-198.0) mg/dL Fibrinogen 134 L (200-500) mg/dL Calcium (8.4-10.2) mg/dL Iron <6 L (50-170) UG/DL % Saturation <1.88 L (12.00-45.00) Ferritin 380.0 H (10.0-291.0) ng/mL AST (14-36) U/L ALT (4-34) U/L Lactate Dehydrogenase 664 H (120-246) U/L Total Protein (6.3-8.2) g/dL Albumin (3.5-5.0) g/dL Vitamin B12 1746.0 H (200.0-944.0) pg/mL 10/17/24 10/18/24 Range/Units 15:08 06:03 WBC (4.50-10.00) X 10*3/uL RBC (4.10-5.20) X 10*6/uL Hgb (12.0-15.0) g/dL Hct (37.2-46.3) % Plt Count (140-440) X 10*3/uL MPV (9.5-12.2) FL Lymphocytes # (0.90-5.00) X 10*3/uL Monocytes # (0.20-1.00) X 10*3/uL Eosinophils # (0.04-0.35) X 10*3/uL Immature Plt Fraction (1.1-6.1) % Haptoglobin 27.0 L (31.2-198.0) mg/dL Fibrinogen (200-500) mg/dL Calcium 8.3 L (8.4-10.2) mg/dL Iron (50-170) UG/DL % Saturation (12.00-45.00) Ferritin (10.0-291.0) ng/mL AST 143 H (14-36) U/L ALT 65 H (4-34) U/L Lactate Dehydrogenase (120-246) U/L Total Protein 5.5 L (6.3-8.2) g/dL Albumin 3.0 L (3.5-5.0) g/dL Vitamin B12 (200.0-944.0) pg/mL Microbiology - Last 24 Hours (Table) 10/15/24 15:52 Blood Culture - Preliminary Blood 10/16/24 16:59 Blood Culture - Preliminary Blood
[2024-10-19 05:38] LABS: Partial Thromboplastin Time 28.3 sec (22.0-30.0)
--- NOTE | 2024-10-19 07:06 | P.PN ---
Subjective Progress Note Date: 10/18/24 Principal diagnosis: Reason for follow-up is sepsis Patient is a 19-year-old female who is status post medically induced on 09/05/2024 with recent multiple visits to the ER on 09/11/2024 she was diagnosed with a UTI and discharged on Macrobid now presenting back to the hospital concerning for fever generalized bodyaches headache and nausea, patient did have a fever prompting this consultation On today's evaluation that is 10/18/2024,the patient did have resolution of her fever and has been afebrile for more than 24 hours now patient mention improvement in headache no further nausea vomiting still complaining of lower abdominal discomfort no diarrhea no chest pain some shortness of breath currently on room air. Patient white count improved to 3.8 platelet count is 148 creatinine 0.70 liver isms mildly elevated blood cultures so far negative Objective - Vital Signs Vital signs: Vital Signs Temp 99.0 F 10/18/24 07:19 Pulse 85 10/18/24 07:19 Resp 16 10/18/24 07:19 BP 105/68 10/18/24 07:19 Pulse Ox 94 L 10/18/24 07:19 FiO2 Intake & Output 10/17/24 10/18/24 10/18/24 18:59 06:59 18:59 Intake Total 1994 0 Balance 1994 0 Intake: Oral 1994 Blood Product 0 Pooled Cryoprecipitate 0 Unit [id number] Other: Voiding Method Toilet # Voids 5 1 # Bowel Movements 2 - Exam GENERAL DESCRIPTION: Young female lying in bed in no distress RESPIRATORY SYSTEM: Unlabored breathing , decreased breath sounds at bases HEART: S1 S2 regular rate and rhythm , ABDOMEN: Soft , lower abdominal tenderness SKIN: Generalized maculopapular rash EXTREMITIES: No edema feet - Labs CBC & Chem 7: 10/18/24 10:44 10/18/24 06:03 Labs: Abnormal Lab Results - Last 24 Hours (Table) 10/17/24 10/17/24 10/17/24 Range/Units 13:07 15:08 15:08 Haptoglobin 27.0 L (31.2-198.0) mg/dL Fibrinogen 134 L (200-500) mg/dL Calcium (8.4-10.2) mg/dL Iron <6 L (50-170) UG/DL % Saturation <1.88 L (12.00-45.00) Ferritin 380.0 H (10.0-291.0) ng/mL AST (14-36) U/L ALT (4-34) U/L Lactate Dehydrogenase 664 H (120-246) U/L Total Protein (6.3-8.2) g/dL Albumin (3.5-5.0) g/dL Vitamin B12 1746.0 H (200.0-944.0) pg/mL 10/18/24 Range/Units 06:03 Haptoglobin (31.2-198.0) mg/dL Fibrinogen (200-500) mg/dL Calcium 8.3 L (8.4-10.2) mg/dL Iron (50-170) UG/DL % Saturation (12.00-45.00) Ferritin (10.0-291.0) ng/mL AST 143 H (14-36) U/L ALT 65 H (4-34) U/L Lactate Dehydrogenase (120-246) U/L Total Protein 5.5 L (6.3-8.2) g/dL Albumin 3.0 L (3.5-5.0) g/dL Vitamin B12 (200.0-944.0) pg/mL Microbiology - Last 24 Hours (Table) 10/15/24 15:52 Blood Culture - Preliminary Blood 10/16/24 16:59 Blood Culture - Preliminary Blood Assessment and Plan (1) Sepsis Current Visit: Yes Status: Acute Priority: High Code(s): A41.9 - SEPSIS, UNSPECIFIED ORGANISM SNOMED Code(s): 99605684 (2) Neutropenia Current Visit: Yes Status: Acute Code(s): D70.9 - NEUTROPENIA, UNSPECIFIED SNOMED Code(s): 445155298 Plan: 1patient presented hospital with sepsis in this patient did have fever tachycardia and leukopenia meeting criteria for SIRS source questionable abdominal and is more behaving like a toxic shock syndrome as the patient has developed generalized maculopapular rash patient has been evaluated by OB and I have personally discussed the case with him who has done a pelvic exam and did not mention any significant cervical tenderness or any purulent drainage. 2patient did have CT abdominal pelvis did shows a left ovarian cyst but no retained products of conception, ob is following the patient 3LP was ordered yesterday but could not be completed by anesthesia because of low platelet count 3patient did have resolution of her fever improvement in the white count as well as platelet count detailed discussion with the patient need for an LP especially with her headache, do the patient has agreed anesthesia to reevaluate or do the procedure today, OB is to reevaluate the patient and possible plan for D&C as per discussion with the admitting team Dictation was produced using [employer] dictation software. please excuse any grammatical, word or spelling errors. Time with Patient: Less than 30
[2024-10-19 08:49] LABS: ALT 201 U/L (8-44); AST 299 U/L (13-35); Albumin 2.9 g/dL (3.8-4.9); Albumin/Globulin Ratio 1.53 Ratio (1.60-3.17); Alkaline Phosphatase 77 U/L (41-126); BUN/Creat Ratio 14.14 Ratio (12.00-20.00); Blood Urea Nitrogen 9.9 mg/dL (9.0-27.0); Calcium 7.8 mg/dL (8.7-10.3); Carbon Dioxide 26.9 mmol/L (21.6-31.8); Chloride 104 mmol/L (96-109); Globulin 1.9 g/dL (1.6-3.3); Glucose 82 mg/dL (70-110); Potassium 4.1 mmol/L (3.5-5.5); Sodium 138 mmol/L (135-145); Total Bilirubin 0.2 mg/dL (0.3-1.2); Total Protein 4.8 g/dL (6.2-8.2)
[2024-10-19 09:12] LABS: INR 1.1 (<1.2); Prothrombin Time 12.2 sec (10.0-12.5)
[2024-10-19 09:40] LABS: Basophils # (A) 0.02 X 10*3/uL (0.00-0.10); Basophils % (A) 0.8 %; Eosinophils # (A) 0.02 X 10*3/uL (0.04-0.35); Eosinophils % (A) 0.8 %; HCT 27.9 % (37.2-46.3); HGB 9.2 g/dL (12.0-15.0); MCH 29.6 pg (27.0-32.0); MCV 89.7 FL (80.0-97.0); Mean Platelet Volume 12.6 FL (9.5-12.2); Monocytes # (A) 0.21 X 10*3/uL (0.20-1.00); Monocytes % (A) 8.4 %; NRBC Per 100 WBC 0 X 10*3/uL (0.00-0.01); Neutrophils # (A) 1.52 X 10*3/uL (1.80-7.70); Neutrophils % (A) 60.8 %; Platelet Count 167 X 10*3/uL (140-440); RBC 3.11 X 10*6/uL (4.10-5.20); RDW 12.2 % (11.5-14.5)
[2024-10-19] MEDS: IBUPROFEN 600 MG TAB PO STA (09:59)
[2024-10-19] MEDS: ACETAMINOPHEN IV (For NPO) 1,000 MG in EMPTY BAG 1 BAG IVPB SCH (09:59)
[2024-10-19] MEDS: IBUPROFEN IV 800 MG in SODIUM CHLORIDE 0.9% 250 ML IV ONE (10:04)
--- NOTE | 2024-10-19 11:46 | P.PN ---
Subjective Progress Note Date: 10/19/24 SURGICAL PROGRESS NOTE CHIEF COMPLAINT: sepsis HISTORY OF PRESENT ILLNESS: No new complaints. Patient scheduled for D&C today with IMMIGRATION COORDINATOR service. Afebrile. WBC 3.8 Hgb 10.5 platelets 148 PHYSICAL EXAM: VITAL SIGNS: Reviewed. GENERAL: Well-developed in no acute distress. ABDOMEN: Soft. Nondistended. NEUROLOGIC: Alert and oriented. Cranial nerves II through XII grossly intact. ASSESSMENT: 1. Abdominal pain resolved. No acute findings on CT scan 2. Sepsis with unknown etiology with fever, headache, body aches and diffuse rash 3. Pancytopenic 4. DIC 4. Status post elective September 05, 2024 PLAN: -Patient scheduled for D&C with IMMIGRATION COORDINATOR service today -No surgical intervention planned -Continue antibiotics per ID service -Continue supportive care Physician Industrial Cleaner note has been reviewed by physician. Signing provider agrees with the documented findings, assessment, and plan of care. Objective - Vital Signs Vital signs: Vital Signs Temp 102.6 F H 10/19/24 07:38 Pulse 95 10/19/24 07:38 Resp 22 10/19/24 07:38 BP 128/78 10/19/24 07:38 Pulse Ox 95 10/19/24 07:38 FiO2 Intake & Output 10/18/24 10/19/24 10/19/24 18:59 06:59 18:59 Intake Total 400 0 Balance 400 0 Intake: Intake, IV Titration 400 Amount Doxycycline 100 mg In 100 Sodium Chloride 0.9% 100 ml @ 100 mls/hr IVPB Q12H [facility] Rx#:[id number] Vancomycin 1,000 mg In 250 Sodium Chloride 0.9% 250 ml @ 125 mls/hr IVPB Q8H [facility] Rx#:[id number] cefTRIAXone 2 gm In 50 Sodium Chloride 0.9% 50 ml @ 100 mls/hr IVPB Q12HR [facility] Rx#:[id number] Oral 0 - Labs CBC & Chem 7: 10/19/24 04:57 10/19/24 04:57 Labs: Abnormal Lab Results - Last 24 Hours (Table) 10/18/24 10/19/24 10/19/24 Range/Units 10:44 04:57 04:57 WBC 2.50 L (4.50-10.00) X 10*3/uL RBC 3.54 L 3.11 L (3.80-5.40) m/uL Hgb 10.5 L 9.2 L (11.4-16.0) gm/dL Hct 32.6 L 27.9 L (34.0-46.0) % Plt Count 148 L D (150-450) k/uL MPV 12.6 H (9.5-12.2) FL Neutrophils # 1.52 L (1.80-7.70) X 10*3/uL Lymphocytes # 0.7 L 0.70 L (1.0-4.8) k/uL Eosinophils # 0.02 L (0.04-0.35) X 10*3/uL Calcium 7.8 L (8.7-10.3) mg/dL Total Bilirubin 0.2 L (0.3-1.2) mg/dL AST 299 H (13-35) U/L ALT 201 H (8-44) U/L Total Protein 4.8 L (6.2-8.2) g/dL Albumin 2.9 L (3.8-4.9) g/dL Albumin/Globulin Ratio 1.53 L (1.60-3.17) Ratio Microbiology - Last 24 Hours (Table) 10/16/24 16:59 Blood Culture - Preliminary Blood 10/15/24 15:52 Blood Culture - Preliminary Blood
[2024-10-19] MEDS: IV FLUID CONTINUATION 1,000 ML IV ONE ×2 (12:27)
[2024-10-19] MEDS: LACTATED RINGERS 1,000 ML BAG IV STA (12:31)
[2024-10-19] MEDS: DEXAMETHASONE SOD PHOSPHATE 4 MG/ML 1 ML VIAL IVP STA (12:33)
[2024-10-19] MEDS: FAMOTIDINE 20 MG/2 ML VIAL IV STA (12:34)
[2024-10-19] MEDS ORDERED: LIDOCAINE 1% INJ 10MG/ML (20 ML MDV) ONE (12:50)
[2024-10-19] MEDS ORDERED: PROPOFOL 10 MG/ML 20 ML VIAL IV ONE (12:50)
[2024-10-19] MEDS ORDERED: fentaNYL (PF) 50 MCG/ML 2 ML AMP ONE (12:50)
[2024-10-19] MEDS ORDERED: MIDAZOLAM 2 MG/2 ML VIAL ONE (12:50)
--- NOTE | 2024-10-19 13:30 | P.OP ---
Date of Procedure: 10/19/24 Preoperative Diagnosis: #1. Sepsis of unknown origin #2. Status post medical elective #3. Rule out retained products of conception Postoperative Diagnosis: Same Procedure(s) Performed: #1. Dilation and curettage Anesthesia: other (General By LMA) Surgeon: Justyn Sullivan Estimated Blood Loss (ml): 5 IV fluids (ml): 300 Urine output (ml): 100 Pathology: other (Endometrial curettings) Condition: stable Disposition: PACU Operative Findings: Preoperative pelvic examination demonstrated a 4 to 5-week retroverted mobile normal shaped uterus with normal adnexa bilaterally. Intraoperatively, the uterus sounded to approximately 7 to 8 cm. With sharp curettage, a very small amount of tissue may have been removed pending final pathological diagnoses. The typical gritty texture was encountered throughout the uterine cavity with curettage. Description of Procedure: The patient was prepped and draped in usual fashion after general anesthesia was administered by the anesthesiologist. A weighted speculum was placed and the bladder was drained of approximately 100 mL of clear sophie urine. The anterior lip of the cervix was grasped with a single-tooth tenaculum and the uterus sounded to approximately 7 to 8 cm. Serial dilation was carried out to admit a medium sharp curette which was used to thoroughly and circumferentially curette the contents of the uterus onto a Telfa placed in the vagina. There did appear to be a very small amount of tissue that was removed. The typical gritty endometrial texture was encountered throughout the entire case. After several circumferential passes, no further tissue was noted and the instrumentation was removed. There was no ongoing bleeding from either the cervix or the tenaculum site. Estimated blood loss was approximately 5 mL or less. There were no complications. All sponge, instrument, and needle counts were correct. The patient tolerated the procedure well and proceeded to the recovery room in stable condition.
--- NOTE | 2024-10-19 15:19 | P.PN ---
Subjective Progress Note Date: 10/19/24 Principal diagnosis: Reason for follow-up is sepsis Patient is a 19-year-old female who is status post medically induced on 09/05/2024 with recent multiple visits to the ER on 09/11/2024 she was diagnosed with a UTI and discharged on Macrobid now presenting back to the hospital concerning for fever generalized bodyaches headache and nausea, patient did have a fever prompting this consultation On today's evaluation that is 10/19/2024, the patient did spike a fever this morning of 102.1 F responded to IV ibuprofen, patient mentioned did have resolution of her headache and also not complaining of any lower rib abdominal pain at this point no nausea vomiting no chest pain shortness of breath or cough patient has been taken to the OR by OB status post D&C did mention removal of some tissue which has been sent for pathology. The patient white count is 2.50 creatinine 0.7 liver enzymes has slightly increased Objective - Vital Signs Vital signs: Vital Signs Temp 102.6 F H 10/19/24 07:38 Pulse 95 10/19/24 07:38 Resp 22 10/19/24 07:38 BP 128/78 10/19/24 07:38 Pulse Ox 95 10/19/24 07:38 FiO2 Intake & Output 10/18/24 10/19/24 10/19/24 18:59 06:59 18:59 Intake Total 400 0 Balance 400 0 Intake: Intake, IV Titration 400 Amount Doxycycline 100 mg In 100 Sodium Chloride 0.9% 100 ml @ 100 mls/hr IVPB Q12H [facility] Rx#:[id number] Vancomycin 1,000 mg In 250 Sodium Chloride 0.9% 250 ml @ 125 mls/hr IVPB Q8H [facility] Rx#:[id number] cefTRIAXone 2 gm In 50 Sodium Chloride 0.9% 50 ml @ 100 mls/hr IVPB Q12HR [facility] Rx#:[id number] Oral 0 - Exam GENERAL DESCRIPTION: Young female lying in bed in no distress RESPIRATORY SYSTEM: Unlabored breathing , decreased breath sounds at bases HEART: S1 S2 regular rate and rhythm , ABDOMEN: Soft , lower abdominal tenderness SKIN: Generalized maculopapular rash EXTREMITIES: No edema feet - Labs CBC & Chem 7: 10/19/24 04:57 10/19/24 04:57 Labs: Abnormal Lab Results - Last 24 Hours (Table) 10/19/24 10/19/24 Range/Units 04:57 04:57 WBC 2.50 L (4.50-10.00) X 10*3/uL RBC 3.11 L (4.10-5.20) X 10*6/uL Hgb 9.2 L (12.0-15.0) g/dL Hct 27.9 L (37.2-46.3) % MPV 12.6 H (9.5-12.2) FL Neutrophils # 1.52 L (1.80-7.70) X 10*3/uL Lymphocytes # 0.70 L (0.90-5.00) X 10*3/uL Eosinophils # 0.02 L (0.04-0.35) X 10*3/uL Calcium 7.8 L (8.7-10.3) mg/dL Total Bilirubin 0.2 L (0.3-1.2) mg/dL AST 299 H (13-35) U/L ALT 201 H (8-44) U/L Total Protein 4.8 L (6.2-8.2) g/dL Albumin 2.9 L (3.8-4.9) g/dL Albumin/Globulin Ratio 1.53 L (1.60-3.17) Ratio Microbiology - Last 24 Hours (Table) 10/16/24 16:59 Blood Culture - Preliminary Blood 10/15/24 15:52 Blood Culture - Preliminary Blood Assessment and Plan (1) Sepsis Current Visit: Yes Status: Acute Priority: High Code(s): A41.9 - SEPSIS, UNSPECIFIED ORGANISM SNOMED Code(s): 94326416 (2) Neutropenia Current Visit: Yes Status: Acute Code(s): D70.9 - NEUTROPENIA, UNSPECIFIED SNOMED Code(s): 921680777 Plan: 1patient presented hospital with sepsis in this patient did have fever tachycardia and leukopenia meeting criteria for SIRS source questionable abdominal and is more behaving like a toxic shock syndrome as the patient has developed generalized maculopapular rash patient has been evaluated by OB and I have personally discussed the case with him who has done a pelvic exam and did not mention any significant cervical tenderness or any purulent drainage. 2patient did have CT abdominal pelvis did shows a left ovarian cyst but no retained products of conception, ob is following the patient 3LP was ordered yesterday but could not be completed by anesthesia because of low platelet count after the patient platelet count improved patient refused LP 3patient is status post D&C by OB with operative report mention some retained products of conception has been removed and clear the likely source of the sepsis and antibiotic will be directed more towards the pelvic floor Rocephin dose has been adjusted to daily and also added Flagyl will discontinue vancomycin prognosis remains to be guarded Dictation was produced using [employer] dictation software. please excuse any grammatical, word or spelling errors. Time with Patient: Less than 30
--- NOTE | 2024-10-19 15:26 | P.PN ---
Subjective Progress Note Date: 10/19/24 I am following-up with patient and feels her headache is back and is 15/10. Denies any focal deficits. She is pending to have Dilation and Curettage today. Continues to be febrile of 102.6F Objective - Vital Signs Vital signs: Vital Signs Temp 97.4 F L 10/19/24 13:34 Pulse 60 10/19/24 14:45 Resp 16 10/19/24 14:45 BP 117/82 10/19/24 14:45 Pulse Ox 93 L 10/19/24 14:45 FiO2 Intake & Output 10/18/24 10/19/24 10/19/24 18:59 06:59 18:59 Intake Total 400 0 800 Output Total 5 Balance 400 0 795 Intake: IV 800 Intake, IV Titration 400 Amount Doxycycline 100 mg In 100 Sodium Chloride 0.9% 100 ml @ 100 mls/hr IVPB Q12H [facility] Rx#:[id number] Vancomycin 1,000 mg In 250 Sodium Chloride 0.9% 250 ml @ 125 mls/hr IVPB Q8H [facility] Rx#:[id number] cefTRIAXone 2 gm In 50 Sodium Chloride 0.9% 50 ml @ 100 mls/hr IVPB Q12HR [facility] Rx#:[id number] Oral 0 Output: Estimated Blood Loss 5 - Exam General: Was in moderate distress. Intergumentary: Erythematous rash that is diffuse and including face. Neuro: Limited because of pain. Patient is awake, alert, oriented to self, place and time. Is following few simple commands. No aphasia. Motor: Strength is hard to assess but lifting extremities above gravity. Some of the workup during this hospital visit consisted of: Tmax is 100.1 F in the last 24 hours White blood cells 1.2K-->2.86K-->3.8K-->2.5K PT 13, PTT 34, D-Dimer 29.87 Platelets are as low as 60K-->167 Slightly elevated AST. hCG qualitative is detected and quantitative is 20.4 and repeat is 19.6 Sodium is 133, calcium is 7.6, AST is 58 ALT is 32 CRP 13.80 Influenza A/B/RSV/group A strep/SARS-CoV-2 PCR are nondetected HIV is nonreactive Abdominal ultrasound is unremarkable MRI Brain: Is unremarkable study MRA head/MRV head: Normal. CT abdomen/Pelvis: 4.2cm left adnexal or ovarian mass most likely a cyst. Short term follow-up pelvic is recommended. - Labs CBC & Chem 7: 10/19/24 04:57 10/19/24 04:57 Labs: Abnormal Lab Results - Last 24 Hours (Table) 10/19/24 10/19/24 Range/Units 04:57 04:57 WBC 2.50 L (4.50-10.00) X 10*3/uL RBC 3.11 L (4.10-5.20) X 10*6/uL Hgb 9.2 L (12.0-15.0) g/dL Hct 27.9 L (37.2-46.3) % MPV 12.6 H (9.5-12.2) FL Neutrophils # 1.52 L (1.80-7.70) X 10*3/uL Lymphocytes # 0.70 L (0.90-5.00) X 10*3/uL Eosinophils # 0.02 L (0.04-0.35) X 10*3/uL Calcium 7.8 L (8.7-10.3) mg/dL Total Bilirubin 0.2 L (0.3-1.2) mg/dL AST 299 H (13-35) U/L ALT 201 H (8-44) U/L Total Protein 4.8 L (6.2-8.2) g/dL Albumin 2.9 L (3.8-4.9) g/dL Albumin/Globulin Ratio 1.53 L (1.60-3.17) Ratio Microbiology - Last 24 Hours (Table) 10/15/24 15:52 Blood Culture - Preliminary Blood 10/16/24 16:59 Blood Culture - Preliminary Blood Assessment and Plan Assessment: This is a 19-year-old young male who had elective that is medically induced about 6 weeks ago and for the last 3 days she is having headache with nausea chills. She is also having fevers and rash. Patient is not confused and no alfredo igidity. Her HcG level is slightly elevated. Cephalgia with fever, leukopenia, thrombocytopenia, diffuse rash, elevated PT, PTT and abdominal pain with Nausea and vomiting. I am concerned about Disseminated Intravascular Coagulopathy (DIC): Unsure cause but rule out ectopic vs molar because of persistent elevated hCG: I feel less likely meningitis or encephalitis. MRI Brain, MRA head head/MRV are unremarkable. She is currently on Ceftriaxone. Thrombocytopenia---Resolved Plan: .D. consulted anesthesiologist for lumbar puncture but opted out of performing since has thrombocytopenia. If still unknown source of infection recommend to pursue with Lumbar puncture especially since thrombocytopenia has resolved. Patient is currently of Ceftriaxone 2gm bid and Vacomycin per I.D. team. Hematology is consulted. I.D. is on board. COMPUTER INSTRUCTOR team is board. They will take patient for D&C later today. General Surgery team is consulted Will defer the rest of the medical management to primary other specialist The plan is discussed with patient and her boyfriend. Dr. Vela will resume neurology service tomorrow A.M. Time with Patient: Less than 30
[2024-10-19] MEDS: VANCOMYCIN TROUGH DUE 1 EACH MISC MISCELLANE ONE (15:39)
[2024-10-19] MEDS: metroNIDAZOLE-NS PMX 500 MG in SALINE 1 100ML.BAG IVPB SCH (15:40)
--- NOTE | 2024-10-19 18:30 | P.PN ---
Subjective Progress Note Date: 10/19/24 S/p D&C today. Intraoperatively, a very small amount of tissue may have been removed pending final pathological diagnoses. Temp of 102.6 this morning. Hgb 9.2, plt 167, WBC 2.5, ANC 1.52 Objective - Vital Signs Vital signs: Vital Signs Temp 98.6 F 10/19/24 17:26 Pulse 65 10/19/24 17:26 Resp 14 10/19/24 17:26 BP 126/85 10/19/24 17:26 Pulse Ox 98 10/19/24 17:26 FiO2 Intake & Output 10/18/24 10/19/24 10/19/24 18:59 06:59 18:59 Intake Total 400 0 800 Output Total 5 Balance 400 0 795 Intake: IV 800 Intake, IV Titration 400 Amount Doxycycline 100 mg In 100 Sodium Chloride 0.9% 100 ml @ 100 mls/hr IVPB Q12H [facility] Rx#:[id number] Vancomycin 1,000 mg In 250 Sodium Chloride 0.9% 250 ml @ 125 mls/hr IVPB Q8H [facility] Rx#:[id number] cefTRIAXone 2 gm In 50 Sodium Chloride 0.9% 50 ml @ 100 mls/hr IVPB Q12HR [facility] Rx#:[id number] Oral 0 Output: Estimated Blood Loss 5 - Constitutional General appearance: Present: average body habitus, no acute distress - EENT Eyes: Present: anicteric sclerae, EOMI ENT: Present: hearing grossly normal - Respiratory Details: breathing is even and unlabored - Cardiovascular Details: skin warm and dry - Integumentary Integumentary: Absent: cyanotic - Neurologic Neurologic: Present: CNII-XII intact - Musculoskeletal Musculoskeletal: Present: generalized weakness - Labs CBC & Chem 7: 10/19/24 04:57 10/19/24 04:57 Labs: Abnormal Lab Results - Last 24 Hours (Table) 10/19/24 10/19/24 Range/Units 04:57 04:57 WBC 2.50 L (4.50-10.00) X 10*3/uL RBC 3.11 L (4.10-5.20) X 10*6/uL Hgb 9.2 L (12.0-15.0) g/dL Hct 27.9 L (37.2-46.3) % MPV 12.6 H (9.5-12.2) FL Neutrophils # 1.52 L (1.80-7.70) X 10*3/uL Lymphocytes # 0.70 L (0.90-5.00) X 10*3/uL Eosinophils # 0.02 L (0.04-0.35) X 10*3/uL Calcium 7.8 L (8.7-10.3) mg/dL Total Bilirubin 0.2 L (0.3-1.2) mg/dL AST 299 H (13-35) U/L ALT 201 H (8-44) U/L Total Protein 4.8 L (6.2-8.2) g/dL Albumin 2.9 L (3.8-4.9) g/dL Albumin/Globulin Ratio 1.53 L (1.60-3.17) Ratio Microbiology - Last 24 Hours (Table) 10/15/24 15:52 Blood Culture - Preliminary Blood 10/16/24 16:59 Blood Culture - Preliminary Blood Assessment and Plan (1) Pancytopenia Current Visit: Yes Status: Acute Priority: High Code(s): D61.818 - OTHER PANCYTOPENIA SNOMED Code(s): 365436646 (2) Sepsis Current Visit: Yes Status: Acute Priority: High Code(s): A41.9 - SEPSIS, UNSPECIFIED ORGANISM SNOMED Code(s): 51120725 (3) Status post elective Current Visit: Yes Status: Acute Priority: High Code(s): Z98.890 - OTHER SPECIFIED POSTPROCEDURAL STATES SNOMED Code(s): 536291446 Plan: Pancytopenia, DIC: Presented to the emergency room for headache, fever, body aches, abdominal pain and dysuria. Patient underwent elective approximately 6 weeks ago. She reports since she has had dysuria and has been treated for UTIs and has been on multiple antibiotic regimens, most recently Macrobid and Keflex. She reports she began to having progressing symptoms of headache, fever, body aches and abdominal pain which caused her to present to the emergency room for further evaluation. -Patient has had extensive workup since admit with multiple specialties consulted. She has continued on empiric antibiotics.. Thus far infectious workup has been negative. Upon admit CBC showed pancytopenia. -WBC 1.2, ANC 800, hemoglobin 12.6, platelets 72,000. White counts and platelets have been slowly improving since admit. Today WBC slightly decreased at 2.5. Platelets improved to 167,000. Hemoglobin 9.2. CBC from 07/22/23 showed normal counts -DIC workup was consistent with at least mild DIC and patient was given 1 dose of cryoprecipitate. Repeat DIC labs today negative. -Nutritional studies consistent with iron deficiency anemia, however due to concern for sepsis, will hold IV iron at this time. Hemolysis and HLH workup negative. -CT abdomen pelvis showing 4.2 cm left adnexal or ovarian mass most likely a cyst with no acute changes within the abdomen or pelvis. Pelvic ultrasound showing 3.6 cm simple appearing thin-walled cyst in the left ovary. No sonographic evidence for retained products of conception. -Due to noted fevers, S/S, pancytopenia/DIC, and negative infectious workup, concerned for retained products of conception. ENGINEERING AND SCIENTIFIC PROGRAMMER is following case. S/p D&C today, intraoperatively, a very small amount of tissue may have been removed pending final pathological diagnoses. -Pancytopenia, DIC likely r/t sepsis and possible reattained products of conception. Would expect counts to continue to improve as underlying acute process is treated -Continue to monitor CBC attests: I have seen and examined pt, performed H&P, developed impression and plan of care. Discussed with dictator. Agree with documentation, dictated as a scribe.
[2024-10-20] MEDS ORDERED: IBUPROFEN 400 MG TAB PO PRN (01:55)
--- NOTE | 2024-10-20 06:29 | P.PN ---
Subjective Progress Note Date: 10/19/24 This is a 19-year-old female who presented to the emergency department with feeling fever headache and bodyaches with fatigue and decreased appetite with abdominal pain for the last 3 days that had been progressively getting worse. Patient reports she had an on 09/05/2024 and was seen in the ER a week or so after that with some genitourinary symptoms and also another subsequent visit with urinary symptoms and hCG had been going down. Patient reports this is her second and her previous 1 was in April 19. Patient reports her last menstrual period is currently now as she is on her menstrual cycle and denies any other significant medical problems. Patient reports she does not c urrently have a primary care provider and no significant history other than vaping with tobacco. Patient denies marijuana or alcohol use or illicit drug use. On admission patient was noted to have a fever with tachycardia, and extremely low white count of 1.2, hemoglobin 12.6, platelets 72 and on the downward trend as this morning platelets are decreased at 60. White count slightly improved at 2.3 and hemoglobin is 10.6. Sodium was noted to be low at 129 although with gentle hydration overnight improved at 133, creatinine and other electrolytes within normal limits. AST mildly elevated at 66 and trending down, CRP is elevated at 13.8, procalcitonin is 0.52 urinalysis with large blood otherwise negative and virology testing including influenza, RSV, COVID are all negative as well as strep. Patient admitted with hematology/oncology along with infectious disease, gynecology, and neurology on consult. Patient did undergo abdominal ultrasound which was unremarkable ultrasound, patient also underwent pelvic ultrasound reporting no evidence of retained products of conception. CT abdomen pelvis is ordered and pending at this time as patient continues to have fevers and low white count. Undetermined source of infection although patient reports has had multiple antibiotic rounds in the outpatient setting for frequent urinary tract infections. Patient is maintained on broad-spectrum antibiotics with infectious disease following and appears to have developed an allergic reaction to one of the medications. Antibiotics being adjusted per infectious disease and will continue with as needed Benadryl and calamine lotion. 10/17/2024 Patient is seen in follow-up today continues to have fevers although are under downward trend. Patient continues with rash that is maculopapular and diffuse although appears slightly worse this morning, will give Benadryl. Hematology/oncology being consulted with concerns of possible DIC. White count remains low although is improving above 2 today. Platelets are at 73. Patient does have some mild vaginal bleeding noted and she reports she feels she is on her period. WASTE WATER OR WATER PLANT OPERATOR has evaluated the patient and imaging reporting no retained products and CT abdomen unremarkable other than a 4 cm cyst noted on the ovary. Attempting to possibly transfer for tertiary treatment as patient may likely require D&C and higher level of care. Will initiate transfer and have discussed with patient and family and patient does not want to transfer although his understanding if transfer is necessary. 10/18/2024 Patient is seen in follow-up having low-grade temps although much improved and patient's mentation and overall clinical picture is improving. Rash all over body is less intense. Multiple consultations following including hematology and is status post cryoprecipitate yesterday. Fibrinogen is improved and white count is trending up above 3 today and platelets have also improved above 150. Lengthy discussion was had about LP and ruling out other viral etiologies and/or infections and patient initially agreeable although there was further discussion of being reevaluated by WASTE WATER OR WATER PLANT OPERATOR for D&C and patient wants to wait on LP. Pain management was consulted for this. 10/19/2024 Patient is seen in follow-up this morning continuing with fevers upwards of 102 this morning and will avoid Tylenol monitoring LFTs as patient likely has shock liver due to sepsis. Will continue with Motrin and patient currently n.p.o. she is scheduled to go undergo D&C today, IV ibuprofen ordered. White count on the lower side but is stable, hemoglobin is stable and platelets are improved. Patient is maintained on antibiotics with infectious disease following. Will await a report from D&C and would also like to continue to proceed with LP although no pain management or interventional radiology available on the weekend. Patient had refused the LP yesterday as she wanted the D&C done first. Will follow-up on repeat labs and continue to monitor closely. Review of systems: Constitutional: reports of fatigue, reports continued fever although feeling a little better, or chills Cardiovascular: No reports of chest pain or palpitations Respiratory: No reports of shortness of breath or cough GI: reports of nausea, reports occasional vomiting but improving, or diarrhea, reports abdominal discomfort that is less intense : No reports of dysuria or retention Neurovascular: No reports of weakness or numbness, reports continued headache especially when fevers are up All medications have been reviewed PHYSICAL EXAMINATION: GENERAL: The patient is alert and oriented x3, thin built. Well developed, ill- appearing., pale HEENT: Pupils are round and equally reacting to light. EOMI. No scleral icterus. No conjunctival pallor. Normocephalic, atraumatic. No pharyngeal erythema. No thyromegaly. CARDIOVASCULAR: S1 and S2 muffled PULMONARY: Chest is clear to auscultation, no wheezing or crackles. ABDOMEN: Soft, mildly tender on palpation, thin, normoactive bowel sounds. No palpable organomegaly. MUSCULOSKELETAL: No joint swelling or deformity. EXTREMITIES: No cyanosis, clubbing, or pedal edema. NEUROLOGICAL: Gross neurological examination did not reveal any focal deficits. SKIN: Maculopapular rash that is diffuse and less reddened, appears to be improving Assessment: Abdominal pain with nausea, fever, headaches and bodyaches with sepsis, present on admission Neutropenia and thrombocytopenia, concerns for DIC, undergoing workup and hematology/oncology following Sepsis, present on admission, unknown exact etiology with fevers, diffuse rash, leukopenia, tachycardia Elevated LFTs, likely shock liver from sepsis Diffuse rash of upper and lower extremities along with abdomen and torso, concern for allergic reaction. Medications being adjusted, rash is improving Recent elective in middle of August of this year, previous in March 2024 Vaping with tobacco use GI prophylaxis DVT prophylaxis Full code Plan: Patient is admitted with features of sepsis with multiple visits to the ER and recent outpatient clinic elective on September 09 of this year and previous in March of 2024 and patient reported no complications. Patient had 2-3 extra visits to the ER with abdominal pain and urinary symptoms send on Macrobid and other antibiotics and sent home and encouraged to follow-up outpatient with primary care provider. Patient currently has no primary care provider and will be provided with resources. Patient also has no insurance and has been instructed to follow-up and apply for Medicaid. Patient has had multiple images including ultrasounds and gynecology evaluation and not concerned of any retained products, ultrasound did not display any retained conception products. Patient reports she is bleeding vaginally and believes she is on her period again. Patient may likely require D&C and will attempt to discuss with WASTE WATER OR WATER PLANT OPERATOR regarding this. Attempted transfer to multiple hospitals and have been reviewed by their medical Board committee and denied the transfer as they are at capacity. Patient does not want to transfer given she will be by herself if transferred to a different facility as her boyfriend works as well as other family members. WASTE WATER OR WATER PLANT OPERATOR following with plans for D&C this afternoon, currently n.p.o. CT abdomen pelvis unremarkable other than a 4 cm cyst on the ovary Neurology also following for this extensive headache and is scheduled with MRI and MRA of the brain done and was negative. Discussing possible LP as patient remains febrile and neutropenic. Interventional radiology consulted although refused to do the LP given her platelet count and white blood count. Platelet count is improving and pain management was consulted for LP although patient refused at this time I would like to proceed with D&C first. Discussed the importance of ruling out other infections and viral etiologies and patient verbalized understanding of refusing LP. No pain management or interventional radiology available over the weekend and will still likely need an LP if continuing to have fevers. d-dimer was elevated and CT was negative for PE. venous dopplers done of lower extremities and were negative. Hem/Onc following and DIC workup ongoing The impression and plan of care has been dictated by Jennifer Gaspar, Nurse Practitioner as directed. Dr. Otoniel MD I have performed a history and examination and MDM of this patient, discussed the same with the dictator, and agree with the dictator's assessment and plan as written ,documented as a scribe. Based on total visit time, I have performed more than 50% of the visit. Objective - Vital Signs Vital signs: Vital Signs Temp 99.2 F 10/20/24 02:45 Pulse 85 10/20/24 02:00 Resp 14 10/20/24 02:00 BP 122/78 10/20/24 02:00 Pulse Ox 96 10/20/24 02:00 FiO2 Intake & Output 10/19/24 10/19/24 10/20/24 06:59 18:59 06:59 Intake Total 0 800 540 Output Total 5 Balance 0 795 540 Intake: IV 800 Oral 0 540 Output: Estimated Blood Loss 5 Other: # Voids 3 # Bowel Movements 1 - Labs CBC & Chem 7: 10/19/24 04:57 10/19/24 04:57 Labs: Abnormal Lab Results - Last 24 Hours (Table) 10/19/24 10/19/24 Range/Units 04:57 04:57 WBC 2.50 L (4.50-10.00) X 10*3/uL RBC 3.11 L (4.10-5.20) X 10*6/uL Hgb 9.2 L (12.0-15.0) g/dL Hct 27.9 L (37.2-46.3) % MPV 12.6 H (9.5-12.2) FL Neutrophils # 1.52 L (1.80-7.70) X 10*3/uL Lymphocytes # 0.70 L (0.90-5.00) X 10*3/uL Eosinophils # 0.02 L (0.04-0.35) X 10*3/uL Calcium 7.8 L (8.7-10.3) mg/dL Total Bilirubin 0.2 L (0.3-1.2) mg/dL AST 299 H (13-35) U/L ALT 201 H (8-44) U/L Total Protein 4.8 L (6.2-8.2) g/dL Albumin 2.9 L (3.8-4.9) g/dL Albumin/Globulin Ratio 1.53 L (1.60-3.17) Ratio Microbiology - Last 24 Hours (Table) 10/16/24 16:59 Blood Culture - Preliminary Blood 10/15/24 15:52 Blood Culture - Preliminary Blood
[2024-10-20 10:29] LABS: ALT 149 U/L (8-44); AST 122 U/L (13-35); Albumin/Globulin Ratio 1.58 Ratio (1.60-3.17); Alkaline Phosphatase 83 U/L (41-126); BUN/Creat Ratio 14.17 Ratio (12.00-20.00); Blood Urea Nitrogen 8.5 mg/dL (9.0-27.0); Calcium 7.9 mg/dL (8.7-10.3); Carbon Dioxide 26.5 mmol/L (21.6-31.8); Chloride 102 mmol/L (96-109); Globulin 1.9 g/dL (1.6-3.3); Glucose 123 mg/dL (70-110); Sodium 136 mmol/L (135-145); Total Bilirubin 0.2 mg/dL (0.3-1.2); Total Protein 4.9 g/dL (6.2-8.2)
--- NOTE | 2024-10-20 10:36 | P.PN ---
Subjective Progress Note Date: 10/20/24 Principal diagnosis: Sepsis of unknown etiology Patient reports feeling significantly better today. Her appetite has returned, headache has abated entirely. She has no significant ongoing pain. She denies any vaginal bleeding of any kind at this time. She reports that her sy mptomatology changed almost immediately after D&C yesterday. Objective - Vital Signs Vital signs: Vital Signs Temp 98.3 F 10/20/24 07:04 Pulse 79 10/20/24 07:04 Resp 16 10/20/24 07:04 BP 117/75 10/20/24 07:04 Pulse Ox 93 L 10/20/24 07:04 FiO2 Intake & Output 10/19/24 10/20/24 10/20/24 18:59 06:59 18:59 Intake Total 800 540 480 Output Total 5 Balance 795 540 480 Intake: IV 800 Oral 540 480 Output: Estimated Blood Loss 5 Other: # Voids 3 # Bowel Movements 1 - Exam In general, this is a well-developed, well-nourished white female in no acute distress. She continues to have a generalized petechial rash which she and her significant other report is significantly improved as I have not personally looked at it closely in the last several days. Her abdomen is nondistended, soft, nontender, and without any palpable masses. Her extremities are without any cyanosis or clubbing though she does have some mild bilateral lower extremity edema. Her extremities are nontender to palpation bilaterally. Pelv ic examination is deferred. - Labs CBC & Chem 7: 10/19/24 04:57 10/20/24 03:14 Labs: Abnormal Lab Results - Last 24 Hours (Table) 10/20/24 Range/Units 03:14 BUN 8.5 L (9.0-27.0) mg/dL Glucose 123 H (70-110) mg/dL Calcium 7.9 L (8.7-10.3) mg/dL Total Bilirubin 0.2 L (0.3-1.2) mg/dL AST 122 H (13-35) U/L ALT 149 H (8-44) U/L C-Reactive Protein 7.20 H (0.00-0.80) mg/dL Total Protein 4.9 L (6.2-8.2) g/dL Albumin 3.0 L (3.8-4.9) g/dL Albumin/Globulin Ratio 1.58 L (1.60-3.17) Ratio Microbiology - Last 24 Hours (Table) 10/16/24 16:59 Blood Culture - Preliminary Blood 10/15/24 15:52 Blood Culture - Preliminary Blood Assessment and Plan (1) Status post elective Current Visit: Yes Status: Acute Priority: High Code(s): Z98.890 - OTHER SPECIFIED POSTPROCEDURAL STATES SNOMED Code(s): 979838680 (2) Sepsis Current Visit: Yes Status: Acute Priority: High Code(s): A41.9 - SEPSIS, UNSPECIFIED ORGANISM SNOMED Code(s): 91971623 Plan: Patient has shown significant clinical and mental improvement in the last 24 hours. It is unclear as to whether or not the D&C was the etiologic factor but the timing does match for when she began to feel better. It is also difficult to believe that the small amount of tissue removed could have been the instigating factor for all of her symptomatology. Nevertheless, she is looking significantly better. She did have a fever last night to 101.0 F and I have told them that they should remain in the hospital until at least 24 to 48 hours afebrile with significant clinical improvement. The second portion is in place with significant clinical improvement. She nevertheless requires the afebrile portion to become fact. Pathology will not likely be available until Tuesday afternoon at the very earliest and perhaps not until Tuesday. If she has significant improvement as she appears to thus far, I would strongly entertain the idea of discharging her home for her to follow-up with me as an outpatient regarding the pathology. I will leave this in the hands of the medical team.
[2024-10-20 11:05] LABS: Basophils # (A) 0.01 X 10*3/uL (0.00-0.10); Basophils % (A) 0.4 %; Eosinophils # (A) 0 X 10*3/uL (0.04-0.35); Eosinophils % (A) 0 %; HGB 9.1 g/dL (12.0-15.0); Lymphocytes # (A) 0.68 X 10*3/uL (0.90-5.00); Lymphocytes % (A) 24.6 %; MCH 29.9 pg (27.0-32.0); MCHC 33.7 g/dL (32.0-37.0); MCV 88.8 FL (80.0-97.0); Monocytes # (A) 0.49 X 10*3/uL (0.20-1.00); Monocytes % (A) 17.8 %; NRBC Per 100 WBC 0 X 10*3/uL (0.00-0.01); Neutrophils # (A) 1.56 X 10*3/uL (1.80-7.70); Neutrophils % (A) 56.5 %; Platelet Count 237 X 10*3/uL (140-440); RBC 3.04 X 10*6/uL (4.10-5.20); RDW 12.1 % (11.5-14.5); WBC 2.76 X 10*3/uL (4.50-10.00)
--- NOTE | 2024-10-20 15:25 | P.PN ---
Subjective Progress Note Date: 10/20/24 Principal diagnosis: Reason for follow-up is sepsis Patient is a 19-year-old female who is status post medically induced on 09/05/2024 with recent multiple visits to the ER on 09/11/2024 she was diagnosed with a UTI and discharged on Macrobid now presenting back to the hospital concerning for fever generalized bodyaches headache and nausea, patient did have a fever prompting this consultation On today's evaluation that is 10/20/2024, patient did did have a fever of 101 F at 2 AM patient is afebrile since then, the patient is currently breathing comfortable room air the patient denies any headache no chest pain shortness of breath or cough did have solution of abdominal pain and no diarrhea. Patient white count is 2.76, creatinine 0.6 liver enzymes has improved culture have been negative so far Objective - Vital Signs Vital signs: Vital Signs Temp 98.3 F 10/20/24 11:36 Pulse 69 10/20/24 11:36 Resp 16 10/20/24 11:36 BP 135/86 10/20/24 11:36 Pulse Ox 99 10/20/24 11:36 FiO2 Intake & Output 10/19/24 10/20/24 10/20/24 18:59 06:59 18:59 Intake Total 800 540 480 Output Total 5 Balance 795 540 480 Intake: IV 800 Oral 540 480 Output: Estimated Blood Loss 5 Other: Voiding Method Toilet # Voids 3 # Bowel Movements 1 - Exam GENERAL DESCRIPTION: Young female lying in bed in no distress RESPIRATORY SYSTEM: Unlabored breathing , decreased breath sounds at bases HEART: S1 S2 regular rate and rhythm , ABDOMEN: Soft , lower abdominal tenderness SKIN: Generalized maculopapular rash EXTREMITIES: No edema feet - Labs CBC & Chem 7: 10/20/24 03:14 10/20/24 03:14 Labs: Abnormal Lab Results - Last 24 Hours (Table) 10/20/24 10/20/24 Range/Units 03:14 03:14 WBC 2.76 L (4.50-10.00) X 10*3/uL RBC 3.04 L (4.10-5.20) X 10*6/uL Hgb 9.1 L (12.0-15.0) g/dL Hct 27.0 L (37.2-46.3) % Neutrophils # 1.56 L (1.80-7.70) X 10*3/uL Lymphocytes # 0.68 L (0.90-5.00) X 10*3/uL Eosinophils # 0 L (0.04-0.35) X 10*3/uL BUN 8.5 L (9.0-27.0) mg/dL Glucose 123 H (70-110) mg/dL Calcium 7.9 L (8.7-10.3) mg/dL Total Bilirubin 0.2 L (0.3-1.2) mg/dL AST 122 H (13-35) U/L ALT 149 H (8-44) U/L C-Reactive Protein 7.20 H (0.00-0.80) mg/dL Total Protein 4.9 L (6.2-8.2) g/dL Albumin 3.0 L (3.8-4.9) g/dL Albumin/Globulin Ratio 1.58 L (1.60-3.17) Ratio Microbiology - Last 24 Hours (Table) 10/16/24 16:59 Blood Culture - Preliminary Blood 10/15/24 15:52 Blood Culture - Preliminary Blood Assessment and Plan (1) Sepsis Current Visit: Yes Status: Acute Priority: High Code(s): A41.9 - SEPSIS, UNSPECIFIED ORGANISM SNOMED Code(s): 91784512 (2) Neutropenia Current Visit: Yes Status: Acute Code(s): D70.9 - NEUTROPENIA, UNSPECIFIED SNOMED Code(s): 442628835 Plan: 1patient presented hospital with sepsis in this patient did have fever tachycar citlali and leukopenia meeting criteria for SIRS source questionable abdominal and is more behaving like a toxic shock syndrome as the patient has developed generalized maculopapular rash patient has been evaluated by OB and I have personally discussed the case with him who has done a pelvic exam and did not mention any significant cervical tenderness or any purulent drainage. 2patient did have CT abdominal pelvis did shows a left ovarian cyst but no retained products of conception, ob is following the patient 3patient is status post D&C by OB with operative report mention some retained products of conception has been removed and likely source of the sepsis and the patient did have improvement in her symptom after the procedure continue with Rocephin and Flagyl for another 24 hours to make sure no fever before transition to oral antibiotics this was discussed with VICE PRESIDENT OF DEVELOPMENT for admitting team Dictation was produced using [employer] dictation software. please excuse any grammatical, word or spelling errors. Time with Patient: Less than 30
--- NOTE | 2024-10-20 16:10 | P.PN ---
Subjective Progress Note Date: 10/20/24 CHIEF COMPLAINT: Abdominal pain HISTORY OF PRESENT ILLNESS: The patient is a 19-year-old female admitted with initial abdominal pain, and sepsis. Yesterday, patient underwent D&C. Today, she reports feeling very well. No further abdominal pain. She did have a temperature over 102 F. Patient is under neutropenic precautions as WBC less than 3000. ROS: No reports of nausea and vomiting. No new chest pain. No productive sputum PHYSICAL EXAM: VITAL SIGNS: Reviewed CONSTITUTIONAL: Well developed and in no acute distress. EYES: Conjuctivae without sclera icterus. Extraocular movements grossly intact. HEAD, EARS, NOSE, THROAT: Moist buccal mucosa. Head is atraumatic, normocephalic. Hears conversational speech. No nasal drainage. RESPIRATORY: Non-labored respirations and equal bilateral excursions. CARDIOVASCULAR: Palpable 2+ radial pulses. ABDOMEN: Nontender. MUSCULOSKELETAL: No gross deformity of the lower extremities noted. No clubbing. No cyanosis. SKIN: Good skin turgor. Well perfused. NEUROLOGIC: Cranial nerves II through XII grossly intact. No focal or lateralizing signs. PSYCH: Appropriate affect. Alert and oriented to person, place and time. CLINICAL LABS: Reviewed. WBC less than 3000. Hemoglobin less than 10.0, anemia ASSESSMENT: 1. Neutropenia due to sepsis 2. Anemia PLAN: 1. Patient reports abdominal pain is resolved however she still has persistent high fevers 102 to 103 F. 2. Continue IV antibiotics for sepsis Objective - Vital Signs Vital signs: Vital Signs Temp 98.3 F 10/20/24 11:36 Pulse 69 10/20/24 11:36 Resp 16 10/20/24 11:36 BP 135/86 10/20/24 11:36 Pulse Ox 99 10/20/24 11:36 FiO2 Intake & Output 10/19/24 10/20/24 10/20/24 18:59 06:59 18:59 Intake Total 070 208 8164 Output Total 5 Balance 632 886 9386 Intake: IV 800 Oral 540 2040 Output: Estimated Blood Loss 5 Other: Voiding Method Toilet # Voids 3 5 # Bowel Movements 1 - Labs CBC & Chem 7: 10/20/24 03:14 10/20/24 03:14 Labs: Abnormal Lab Results - Last 24 Hours (Table) 10/20/24 10/20/24 Range/Units 03:14 03:14 WBC 2.76 L (4.50-10.00) X 10*3/uL RBC 3.04 L (4.10-5.20) X 10*6/uL Hgb 9.1 L (12.0-15.0) g/dL Hct 27.0 L (37.2-46.3) % Neutrophils # 1.56 L (1.80-7.70) X 10*3/uL Lymphocytes # 0.68 L (0.90-5.00) X 10*3/uL Eosinophils # 0 L (0.04-0.35) X 10*3/uL BUN 8.5 L (9.0-27.0) mg/dL Glucose 123 H (70-110) mg/dL Calcium 7.9 L (8.7-10.3) mg/dL Total Bilirubin 0.2 L (0.3-1.2) mg/dL AST 122 H (13-35) U/L ALT 149 H (8-44) U/L C-Reactive Protein 7.20 H (0.00-0.80) mg/dL Total Protein 4.9 L (6.2-8.2) g/dL Albumin 3.0 L (3.8-4.9) g/dL Albumin/Globulin Ratio 1.58 L (1.60-3.17) Ratio Microbiology - Last 24 Hours (Table) 10/16/24 16:59 Blood Culture - Preliminary Blood 10/15/24 15:52 Blood Culture - Preliminary Blood
--- NOTE | 2024-10-21 02:04 | P.PN ---
Subjective Progress Note Date: 10/20/24 This is a 19-year-old female who presented to the emergency department with feeling fever headache and bodyaches with fatigue and decreased appetite with abdominal pain for the last 3 days that had been progressively getting worse. Patient reports she had an on 09/05/2024 and was seen in the ER a week or so after that with some genitourinary symptoms and also another subsequent visit with urinary symptoms and hCG had been going down. Patient reports this is her second and her previous 1 was in April 19. Patient reports her last menstrual period is currently now as she is on her menstrual cycle and denies any other significant medical problems. Patient reports she does not currently have a primary care provider and no significant history other than vaping with tobacco. Patient denies marijuana or alcohol use or illicit drug use. On admission patient was noted to have a fever with tachycardia, and extremely low white count of 1.2, hemoglobin 12.6, platelets 72 and on the downward trend as this morning platelets are decreased at 60. White count slightly improved at 2.3 and hemoglobin is 10.6. Sodium was noted to be low at 129 although with gentle hydration overnight improved at 133, creatinine and other electrolytes within normal limits. AST mildly elevated at 66 and trending down, CRP is elevated at 13.8, procalcitonin is 0.52 urinalysis with large blood otherwise negative and virology testing including influenza, RSV, COVID are all negative as well as strep. Patient admitted with hematology/oncology along with infectious disease, gynecology, and neurology on consult. Patient did undergo abdominal ultrasound which was unremarkable ultrasound, patient also underwent pelvic ultrasound reporting no evidence of retained products of conception. CT abdomen pelvis is ordered and pending at this time as patient continues to have fevers and low white count. Undetermined source of infection although patient reports has had multiple antibiotic rounds in the outpatient setting for frequent urinary tract infections. Patient is maintained on broad-spectrum antibiotics with infectious disease following and appears to have developed an allergic reaction to one of the medications. Antibiotics being adjusted per infectious disease and will continue with as needed Benadryl and calamine lotion. 10/17/2024 Patient is seen in follow-up today continues to have fevers although are under downward trend. Patient continues with rash that is maculopapular and diffuse although appears slightly worse this morning, will give Benadryl. Hematology/oncology being consulted with concerns of possible DIC. White count remains low although is improving above 2 today. Platelets are at 73. Patient does have some mild vaginal bleeding noted and she reports she feels she is on her period. SENIOR SAS PROGRAMMER has evaluated the patient and imaging reporting no retained products and CT abdomen unremarkable other than a 4 cm cyst noted on the ovary. Attempting to possibly transfer for tertiary treatment as patient may likely require D&C and higher level of care. Will initiate transfer and have discussed with patient and family and patient does not want to transfer although his understanding if transfer is necessary. 10/18/2024 Patient is seen in follow-up having low-grade temps although much improved and patient's mentation and overall clinical picture is improving. Rash all over body is less intense. Multiple consultations following including hematology and is status post cryoprecipitate yesterday. Fibrinogen is improved and white count is trending up above 3 today and platelets have also improved above 150. Lengthy discussion was had about LP and ruling out other viral etiologies and/or infections and patient initially agreeable although there was further discussion of being reevaluated by SENIOR SAS PROGRAMMER for D&C and patient wants to wait on LP. Jean rodgers was consulted for this. 10/19/2024 Patient is seen in follow-up this morning continuing with fevers upwards of 102 this morning and will avoid Tylenol monitoring LFTs as patient likely has shock liver due to sepsis. Will continue with Motrin and patient currently n.p.o. she is scheduled to go undergo D&C today, IV ibuprofen ordered. White count on the lower side but is stable, hemoglobin is stable and platelets are improved. Patient is maintained on antibiotics with infectious disease following. Will await a report from D&C and would also like to continue to proceed with LP although no pain management or interventional radiology available on the weekend. Patient had refused the LP yesterday as she wanted the D&C done first. Will follow-up on repeat labs and continue to monitor closely. 10/20/2024 Patient is seen in follow-up today reporting to feeling significantly improved. Patient is afebrile although did have low-grade temp overnight and will monitor for 24 hours without fever prior to discharge. Patient continued on antibiotics in the form of ceftriaxone, doxycycline, and Flagyl with infectious disease following. Lab values are improving and platelets have improved and white count trending up. Hemoglobin is stable. Patient is status post D&C with pathology sent and currently pending. Gynecology following and will follow with patient outpatient to discuss test results. LFTs improving and trending down. Will avoid Tylenol for now and continue with as needed Motrin. Encourage patient to increase activity as tolerated and get up and walk more frequently. Patient reports her headache is gone and her appetite has improved. Continue other supportive care. Review of systems: Constitutional: No reports of fatigue, no reports of fever, reports feeling much better, or chills Cardiovascular: No reports of chest pain or palpitations Respiratory: No reports of shortness of breath or cough GI: No further reports of nausea, no vomiting, or diarrhea, reports abdominal discomfort is improved : No reports of dysuria or retention Neurovascular: No reports of weakness or numbness, reports no further headache All medications have been reviewed PHYSICAL EXAMINATION: GENERAL: The patient is alert and oriented x3, thin built. Well developed, appears more roaster operator and sitting up in the chair today., pale HEENT: Pupils are round and equally reacting to light. EOMI. No scleral icterus. No conjunctival pallor. Normocephalic, atraumatic. No pharyngeal erythema. No thyromegaly. CARDIOVASCULAR: S1 and S2 muffled PULMONARY: Chest is clear to auscultation, no wheezing or crackles. ABDOMEN: Soft, nontender on palpation, thin, normoactive bowel sounds. No palpable organomegaly. MUSCULOSKELETAL: No joint swelling or deformity. EXTREMITIES: No cyanosis, clubbing, or pedal edema. NEUROLOGICAL: Gross neurological examination did not reveal any focal deficits. SKIN: Maculopapular rash that is significantly improved with no redness or swelling noted Assessment: Abdominal pain with nausea, fever, headaches and bodyaches with sepsis, present on admission Neutropenia and thrombocytopenia, concerns for DIC Sepsis, present on admission, unknown exact etiology although suspect possible retained products from recent , with fevers, diffuse rash, leukopenia, tachycardia Elevated LFTs, likely shock liver from sepsis, improving and trending down Diffuse rash of upper and lower extremities along with abdomen and torso, concern for allergic reaction. Medications being adjusted, rash is improved Recent elective in middle of August of this year, previous in March 2024 Vaping with tobacco use GI prophylaxis DVT prophylaxis Full code Plan: Patient is admitted with features of sepsis with multiple visits to the ER and recent outpatient clinic elective on September 09 of this year and previous in March of 2024 and patient reported no complications. Patient had 2-3 extra visits to the ER with abdominal pain and urinary symptoms send on Macrobid and other antibiotics and sent home and encouraged to follow-up outpatient with primary care provider. Patient currently has no primary care provider and will be provided with resources. Patient also has no insurance and has been instructed to follow-up and apply for Medicaid. LP was recommended and patient refused. If patient remains febrile, will reconsult anesthesia or pain management for possible LP Patient has had multiple images including ultrasounds and gynecology evaluation and not concerned of any retained products, ultrasound did not display any retained conception products. Gynecology was asked to reevaluate for D&C and patient is status post D&C with pathology sent and pending at this time Fevers are improving and will continue on antibiotics per infectious disease and if remains afebrile for 24 hours, consider discharging on oral antibiotics in the form of Ceftin and Flagyl for 10-day course. If patient remains afebrile, consider discharge planning in the next 24 hours The impression and plan of care has been dictated by Jennifer Gaspar, Nurse Practitioner as directed. Dr. Otoniel MD I have performed a history and examination and MDM of this patient, discussed the same with the dictator, and agree with the dictator's assessment and plan as written ,documented as a scribe. Based on total visit time, I have performed more than 50% of the visit. Objective - Vital Signs Vital signs: Vital Signs Temp 98.3 F 10/20/24 07:04 Pulse 79 10/20/24 07:04 Resp 16 10/20/24 07:04 BP 117/75 10/20/24 07:04 Pulse Ox 93 L 10/20/24 07:04 FiO2 Intake & Output 10/19/24 10/20/24 10/20/24 18:59 06:59 18:59 Intake Total 800 540 480 Output Total 5 Balance 795 540 480 Intake: IV 800 Oral 540 480 Output: Estimated Blood Loss 5 Other: # Voids 3 # Bowel Movements 1 - Labs CBC & Chem 7: 10/20/24 03:14 10/20/24 03:14 Labs: Microbiology - Last 24 Hours (Table) 10/16/24 16:59 Blood Culture - Preliminary Blood 10/15/24 15:52 Blood Culture - Preliminary Blood
[2024-10-21 07:35] LABS: ALT 130 U/L (4-34); AST 116 U/L (14-36); African American GFR (CKD) >90 (>60 ml/min/1.73 sqM); Albumin/Globulin Ratio 1.2; Alkaline Phosphatase 83 U/L (38-126); Anion Gap 8 mmol/L; Blood Urea Nitrogen 5 mg/dL (7-17); Calcium 8.2 mg/dL (8.4-10.2); Carbon Dioxide 30 mmol/L (22-30); Chloride 98 mmol/L (98-107); Globulin 2.5 g/dL; Glucose 103 mg/dL (74-99); Non-African American GFR(CKD) >90 (>60 ml/min/1.73 sqM); Potassium 3.5 mmol/L (3.5-5.1); Sodium 136 mmol/L (137-145); Total Bilirubin 0.4 mg/dL (0.2-1.3); Total Protein 5.5 g/dL (6.3-8.2)
[2024-10-21 07:38] VITALS: BP 138/76; PULSE 64; RESP 15; TEMP 98.8
[2024-10-21 07:56] LABS: Basophils % (A) 0 %; Eosinophils # (A) 0.1 k/uL (0-0.7); Eosinophils % (A) 1 %; HCT 31.8 % (34.0-46.0); HGB 10.2 gm/dL (11.4-16.0); Lymphocytes # (A) 1.7 k/uL (1.0-4.8); Lymphocytes % (A) 39 %; MCH 29.6 pg (25.0-35.0); MCHC 32.2 g/dL (31.0-37.0); MCV 91.9 fL (80.0-100.0); Mean Platelet Volume 9.1; Monocytes # (A) 0.3 k/uL (0-1.0); Monocytes % (A) 7 %; Neutrophils # (A) 2.1 k/uL (1.3-7.7); Neutrophils % (A) 49 %; RBC 3.46 m/uL (3.80-5.40); RDW 12.4 % (11.5-15.5); WBC 4.3 k/uL (3.8-10.6)
[2024-10-21 07:59] LABS: Platelet Count 405 k/uL (150-450)
--- NOTE | 2024-10-21 09:26 | P.PN ---
Subjective Progress Note Date: 10/21/24 Principal diagnosis: Sepsis of unknown etiology The patient has no significant clinical concerns today aside from pain at her former IV site. She denies headache, nausea, significant abdominal discomfort, vaginal bleeding, or any other concerns. Objective - Vital Signs Vital signs: Vital Signs Temp 98.8 F 10/21/24 07:38 Pulse 64 10/21/24 07:38 Resp 15 10/21/24 07:38 BP 138/76 10/21/24 07:38 Pulse Ox 97 10/21/24 07:38 FiO2 Intake & Output 10/20/24 10/21/24 10/21/24 18:59 06:59 18:59 Intake Total 2520 540 Balance 2520 540 Intake: Oral 2520 540 Other: Voiding Method Toilet Toilet # Voids 5 - Exam General, this is a well-developed, well-nourished white female in no acute distress. Her abdomen is nondistended, soft, nontender, without any palpable masses. Her extremities are without any cyanosis, clubbing, or edema and are nontender to palpation bilaterally. Pelvic examination is deferred. - Labs CBC & Chem 7: 10/21/24 06:57 10/21/24 06:57 Labs: Abnormal Lab Results - Last 24 Hours (Table) 10/20/24 10/20/24 10/21/24 Range/Units 03:14 03:14 06:57 WBC 2.76 L (4.50-10.00) X 10*3/uL RBC 3.04 L 3.46 L (4.10-5.20) X 10*6/uL Hgb 9.1 L 10.2 L (12.0-15.0) g/dL Hct 27.0 L 31.8 L (37.2-46.3) % Neutrophils # 1.56 L (1.80-7.70) X 10*3/uL Lymphocytes # 0.68 L (0.90-5.00) X 10*3/uL Eosinophils # 0 L (0.04-0.35) X 10*3/uL Sodium (137-145) mmol/L BUN 8.5 L (9.0-27.0) mg/dL Glucose 123 H (70-110) mg/dL Calcium 7.9 L (8.7-10.3) mg/dL Total Bilirubin 0.2 L (0.3-1.2) mg/dL AST 122 H (13-35) U/L ALT 149 H (8-44) U/L C-Reactive Protein 7.20 H (0.00-0.80) mg/dL Total Protein 4.9 L (6.2-8.2) g/dL Albumin 3.0 L (3.8-4.9) g/dL Albumin/Globulin Ratio 1.58 L (1.60-3.17) Ratio 10/21/24 Range/Units 06:57 WBC (4.50-10.00) X 10*3/uL RBC (4.10-5.20) X 10*6/uL Hgb (12.0-15.0) g/dL Hct (37.2-46.3) % Neutrophils # (1.80-7.70) X 10*3/uL Lymphocytes # (0.90-5.00) X 10*3/uL Eosinophils # (0.04-0.35) X 10*3/uL Sodium 136 L (137-145) mmol/L BUN 5 L (9.0-27.0) mg/dL Glucose 103 H (70-110) mg/dL Calcium 8.2 L (8.7-10.3) mg/dL Total Bilirubin (0.3-1.2) mg/dL AST 116 H (13-35) U/L ALT 130 H (8-44) U/L C-Reactive Protein (0.00-0.80) mg/dL Total Protein 5.5 L (6.2-8.2) g/dL Albumin 3.0 L (3.8-4.9) g/dL Albumin/Globulin Ratio (1.60-3.17) Ratio Microbiology - Last 24 Hours (Table) 10/16/24 16:59 Blood Culture - Preliminary Blood Assessment and Plan (1) Status post elective Current Visit: Yes Status: Acute Priority: High Code(s): Z98.890 - OTHER SPECIFIED POSTPROCEDURAL STATES SNOMED Code(s): 553211740 (2) Sepsis Current Visit: Yes Status: Acute Priority: High Code(s): A41.9 - SEPSIS, UNSPECIFIED ORGANISM SNOMED Code(s): 97896849 Plan: Patient has shown significant clinical improvement and has now been afebrile for approximately 30 to 34 hours. White count has normalized and her platelet count is actually higher than normal indicating that her bone marrow is working normally. There is consideration for discharge to home with potential oral antibiotics per infectious disease and/or internal medicine for another 7 to 10 days for safety, but I would consider discharging the patient to home. She can follow-up with me in 1 to 2 weeks in the office at which time I will recheck a quantitative beta-hCG. If anything of importance arises from the pathology at the time of D&C, I will inform the patient at that time. Otherwise, I will sign off the case at this time.
--- NOTE | 2024-10-21 11:20 | P.PN ---
Subjective Progress Note Date: 10/20/24 Patient initially seen by Dr. Shane Rasmussen. Please refer to his note for details. I am seeing her for the first time. Patient was seen for a follow-up. Patient is sitting comfortably on the side of the bed. Patient denies any headache, numbness or tingling. No dizziness no visual disturbance. Patient states she feels "great". Patient had some fever, but she believes that it was because she was under a lot of covers. Some of the workup during this hospital visit consisted of: Tmax is 100.1 F in the last 24 hours White blood cells 1.2K-->2.86K-->3.8K-->2.5K PT 13, PTT 34, D-Dimer 29.87 Platelets are as low as 60K-->167 Slightly elevated AST. hCG qualitative is detected and quantitative is 20.4 and repeat is 19.6 Sodium is 133, calcium is 7.6, AST is 58 ALT is 32 CRP 13.80 Influenza A/B/RSV/group A strep/SARS-CoV-2 PCR are nondetected HIV is nonreactive Abdominal ultrasound is unremarkable MRI Brain: Is unremarkable study MRA head/MRV head: Normal. CT abdomen/Pelvis: 4.2cm left adnexal or ovarian mass most likely a cyst. Short term follow-up pelvic is recommended. Objective - Vital Signs Vital signs: Vital Signs Temp 98.3 F 10/20/24 11:36 Pulse 69 10/20/24 11:36 Resp 16 10/20/24 11:36 BP 135/86 10/20/24 11:36 Pulse Ox 99 10/20/24 11:36 FiO2 Intake & Output 10/19/24 10/20/24 10/20/24 18:59 06:59 18:59 Intake Total 132 593 9315 Output Total 5 Balance 866 396 8506 Intake: IV 800 Oral 540 2040 Output: Estimated Blood Loss 5 Other: Voiding Method Toilet # Voids 3 5 # Bowel Movements 1 - Exam Patient's mental status, speech and language functions are normal. Muscle strength is normal. Patient knows it is 10/20/2024 and that she is in [facility] on [place]. Examination is nonfocal. - Labs CBC & Chem 7: 10/21/24 06:57 10/21/24 06:57 Labs: Abnormal Lab Results - Last 24 Hours (Table) 10/20/24 10/20/24 Range/Units 03:14 03:14 WBC 2.76 L (4.50-10.00) X 10*3/uL RBC 3.04 L (4.10-5.20) X 10*6/uL Hgb 9.1 L (12.0-15.0) g/dL Hct 27.0 L (37.2-46.3) % Neutrophils # 1.56 L (1.80-7.70) X 10*3/uL Lymphocytes # 0.68 L (0.90-5.00) X 10*3/uL Eosinophils # 0 L (0.04-0.35) X 10*3/uL BUN 8.5 L (9.0-27.0) mg/dL Glucose 123 H (70-110) mg/dL Calcium 7.9 L (8.7-10.3) mg/dL Total Bilirubin 0.2 L (0.3-1.2) mg/dL AST 122 H (13-35) U/L ALT 149 H (8-44) U/L C-Reactive Protein 7.20 H (0.00-0.80) mg/dL Total Protein 4.9 L (6.2-8.2) g/dL Albumin 3.0 L (3.8-4.9) g/dL Albumin/Globulin Ratio 1.58 L (1.60-3.17) Ratio Microbiology - Last 24 Hours (Table) 10/16/24 16:59 Blood Culture - Preliminary Blood 10/15/24 15:52 Blood Culture - Preliminary Blood Assessment and Plan Assessment: This is a 19-year-old young female who had elective that is medically induced about 6 weeks ago and for the last 3 days she is having headache with nausea chills. She is also having fevers and rash. Patient is not confused and no alfredo igidity. Her HcG level is slightly elevated. Cephalgia with fever, leukopenia, thrombocytopenia, diffuse rash, elevated PT, PTT and abdominal pain with Nausea and vomiting. Unsure cause. Patient denies any headache, therefore meningitis or encephalitis appears very unlikely. MRI Brain, MRA head head/MRV are unremarkable. She is currently on Ceftriaxone and metronidazole. Probable DIC Thrombocytopenia---Resolved Persistent fever, rule out retained gestational products. Plan: Patient's mentation is completely normal. She denies any headache, no nuchal rigidity. No indication for lumbar puncture at this time. Patient is currently on Ceftriaxone 2gm every 24 hours and metronidazole. ID following. Platelets are normal at 237. Hematology is consulted for pancytopenia/DIC. Patient has received 1 unit of cryoprecipitate. Hematology concerned about retained products of conception. Patient is status post D&C yesterday, on 10/19/2024, and intraoperatively, a very small amount of tissue may have been removed pending final pathologic diagnosis. I.D. is on board. MINING MANAGER team is board. They will take patient for D&C later today. General Surgery team is consulted Will defer the rest of the medical management to primary other specialist
[2024-10-21] MEDS: SIMETHICONE 80 MG CHEWABLE PO STA (13:29)
--- NOTE | 2024-10-21 15:34 | P.PN ---
Subjective Progress Note Date: 10/21/24 Principal diagnosis: Reason for follow-up is sepsis Patient is a 19-year-old female who is status post medically induced on 09/05/2024 with recent multiple visits to the ER on 09/11/2024 she was diagnosed with a UTI and discharged on Macrobid now presenting back to the hospital concerning for fever generalized bodyaches headache and nausea, patient did have a fever prompting this consultation On today's evaluation that is 10/21/2024, Patient is afebrile patient is currently on room air and denies having any shortness of breath, the patient denies any chest pain or cough, the patient denies any nausea vomiting did not have any abdominal pain and no diarrhea did have resolution of her rash feeling better wants to go home. The patient white normalized to 4.3 creatinine 0.57 liver enzymes has improved blood culture remains to be negative Objective - Vital Signs Vital signs: Vital Signs Temp 98.8 F 10/21/24 07:38 Pulse 64 10/21/24 07:38 Resp 15 10/21/24 07:38 BP 138/76 10/21/24 07:38 Pulse Ox 97 10/21/24 07:38 FiO2 Intake & Output 10/20/24 10/21/24 10/21/24 18:59 06:59 18:59 Intake Total 2520 540 Balance 2520 540 Intake: Oral 2520 540 Other: Voiding Method Toilet Toilet # Voids 5 - Exam GENERAL DESCRIPTION: Young female lying in bed in no distress RESPIRATORY SYSTEM: Unlabored breathing , decreased breath sounds at bases HEART: S1 S2 regular rate and rhythm , ABDOMEN: Soft , lower abdominal tenderness SKIN: Generalized maculopapular rash EXTREMITIES: No edema feet - Labs CBC & Chem 7: 10/21/24 06:57 10/21/24 06:57 Labs: Abnormal Lab Results - Last 24 Hours (Table) 10/21/24 10/21/24 Range/Units 06:57 06:57 RBC 3.46 L (3.80-5.40) m/uL Hgb 10.2 L (11.4-16.0) gm/dL Hct 31.8 L (34.0-46.0) % Sodium 136 L (137-145) mmol/L BUN 5 L (7-17) mg/dL Glucose 103 H (74-99) mg/dL Calcium 8.2 L (8.4-10.2) mg/dL AST 116 H (14-36) U/L ALT 130 H (4-34) U/L Total Protein 5.5 L (6.3-8.2) g/dL Albumin 3.0 L (3.5-5.0) g/dL Microbiology - Last 24 Hours (Table) 10/15/24 15:52 Blood Culture - Final Blood Assessment and Plan (1) Sepsis Status: Acute Priority: High Code(s): A41.9 - SEPSIS, UNSPECIFIED ORGANISM SNOMED Code(s): 87059249 (2) Neutropenia Status: Acute Code(s): D70.9 - NEUTROPENIA, UNSPECIFIED SNOMED Code(s): 477627970 (3) Toxic shock syndrome Status: Acute Code(s): A48.3 - TOXIC SHOCK SYNDROME SNOMED Code(s): 59412308 Plan: 1patient presented hospital with sepsis in this patient did have fever tachycardia and leukopenia meeting criteria for SIRS source questionable abdominal and is more behaving like a toxic shock syndrome as the patient has developed generalized maculopapular rash patient has been evaluated by OB and I have personally discussed the case with him who has done a pelvic exam and did not mention any significant cervical tenderness or any purulent drainage. 2patient is status post D&C by OB with operative report mention some retained products of conception has been removed and likely source of the sepsis and the patient did have improvement in her symptom after the procedure 3with clinical improvement on Rocephin and Flagyl she will finish therapy with oral Ceftin and Flagyl discussed with INFANTRY INDIRECT [employer]RE CREWMEMBER for admitting team Dictation was produced using [employer] dictation software. please excuse any gra mmatical, word or spelling errors. Time with Patient: Less than 30
--- NOTE | 2024-10-22 22:14 | P.DS ---
Providers Date of admission: 10/15/24 16:20 Expected date of discharge: 10/21/24 Attending physician: Stiven Ley MD Consults: 10/15/24 15:54 Consult Physician Stat Consulting Provider: Stu Otoole Consult Reason/Comments: Abdominal pain, Do you want consulting provider notified?: Yes 10/15/24 15:56 Consult Physician Stat Consulting Provider: Jerry Ross Consult Reason/Comments: Neutropenia Do you want consulting provider notified?: Yes 10/15/24 15:57 Consult Physician Stat Consulting Provider: Shane Rasmussen Consult Reason/Comments: Headache, neutropenia Do you want consulting provider notified?: Yes 10/17/24 11:54 Consult Physician Urgent Consulting Provider: Ap Linder Consult Reason/Comments: neutropenia, thrombocytopenia, ??DIC Do you want consulting provider notified?: Yes 10/18/24 11:45 Consult Physician Stat Consulting Provider: Justyn Sullivan Consult Reason/Comments: needs d&c Do you want consulting provider notified?: Yes Primary care physician: Stated None Hospital Course: Final diagnosis Abdominal pain with nausea, fever, headaches and bodyaches with sepsis, present on admission Neutropenia and thrombocytopenia, concerns for DIC secondary to toxic shock, improving Sepsis, present on admission, unknown exact etiology although highly suspect possible retained products from recent , with fevers, diffuse rash, leukopenia, tachycardia Elevated LFTs, likely shock liver from sepsis, improving and trending down Diffuse rash of upper and lower extremities along with abdomen and torso, concern for allergic reaction. Improved Recent elective in middle of August of this year, previous in March 2024 Vaping with tobacco use GI prophylaxis DVT prophylaxis Full code Discharge disposition Patient is being discharged in a stable condition with guarded prognosis to home. Patient will follow-up with Dr. Haris Beth in the outpatient setting upon discharge. Patient is to continue with oral Ceftin and Flagyl and outpatient follow-up with [facility] as scheduled. Total time taken is greater than 35 minutes. Hospital course This is a 19-year-old female who was recently admitted with abdominal pain nausea, fever, feeling unwell with significant headache. Multiple consultations following including neurology underwent extensive workup including MRI which was negative patient also noted to have frequent ER visits for abdominal pain and possible urinary tract infections and was on multiple courses of antibiotics. Patient also was noted to have an 6 weeks ago taking Cytotec with concerns of possible retained products. Initial imaging including CAT scan and ultrasound were difficult to exclude these and was evaluated by [facility] Dr. Sullivan and given that patient was having continued ongoing symptoms with fever and neutropenia, did undergo D&C. Tissue pathology was sent and pending at this time. Patient showing clinical improvement maintained on antibiotics with infectious disease following and had also recommended possible LP as patient had ongoing fevers with concerns of other unknown source. Patient refused LP unless it was absolutely necessary although significantly improved after D&C including becoming afebrile, rash resolving, and headache resolving and clinical improvement. Patient will continue on oral Ceftin and Flagyl per ID recommendations and recommend close outpatient follow-up with hematology, establishing with a primary care provider, and also [facility]. Recommend follow-up labs in the outpatient setting as patient's LFTs were elevated likely secondary to toxic shock from sepsis and possibility of retained products from previous 6 weeks prior. Patient instructed to refrain from any vaginal intercourse at this time until follow-up with gynecology. Please refer to other consultation notes for further HPI. Currently no reports of chest pain, shortness of breath, or palpitations. Patient is afebrile. No reports of nausea or vomiting and patient is tolerating diet. Patient will be discharged home Physical exam: Gen: This is a 19-year-old female who is awake, alert and oriented x 3, well- developed, thin built HEENT: Head is atraumatic, normocephalic. Pupils equal, round. Sclerae is anicteric. NECK: Supple. No JVD. No lymphadenopathy. No thyromegaly. LUNGS: Clear to auscultation. No wheezes or rhonchi. No intercostal retractions. HEART: Regular rate and rhythm. No murmur. ABDOMEN: Soft. Thin bowel sounds are present. No masses. No tenderness. EXTREMITIES: No pedal edema. No calf tenderness. NEUROLOGICAL: Patient is awake, alert and oriented x3. Cranial nerves 2 through 12 are grossly intact. Please refer to medication reconciliation sheet for a list of medications. The impression and plan of care has been dictated by Jennifer Gaspar, Nurse Practitioner as directed. Dr. Otoniel MD I have performed a history and examination and MDM of this patient, discussed the same with the dictator, and agree with the dictator's assessment and plan as written ,documented as a scribe. Based on total visit time, I have performed more than 50% of the visit. Patient Condition at Discharge: Fair Plan - Discharge Summary Discharge Rx Participant: No New Discharge Prescriptions: New metroNIDAZOLE [Flagyl] 500 mg PO TID 7 Days #21 tab cefuroxime axetiL [Ceftin] 500 mg PO BID 7 Days #14 tab Continue Acetaminophen Tab [Tylenol] 500 mg PO Q6H PRN PRN Reason: Pain Ibuprofen 400 mg PO Q8H PRN #40 tablet PRN Reason: Pain Discharge Medication List Acetaminophen Tab [Tylenol] 500 mg PO Q6H PRN 10/15/24 [History] Ibuprofen 400 mg PO Q8H PRN #40 tablet 10/21/24 [Rx] cefuroxime axetiL [Ceftin] 500 mg PO BID 7 Days #14 tab 10/21/24 [Rx] metroNIDAZOLE [Flagyl] 500 mg PO TID 7 Days #21 tab 10/21/24 [Rx] Follow up Appointment(s)/Referral(s): Justyn Sullivan MD [STAFF PHYSICIAN] - 1 Week Patricia Davis MD [STAFF PHYSICIAN] - 1 Week Patient Instructions/Handouts: Cefuroxime (By mouth), Ibuprofen (By mouth), Metronidazole (By mouth) Activity/Diet/Wound Care/Special Instructions: Activity limited until follow-up Follow-up with primary care provider to establish outpatient Continue taking antibiotics until finished Follow-up with [facility] outpatient in 1 to 2 weeks Slowly advance her diet as tolerated and if having excessive bloating and gas, r ecommend Gas-X or simethicone drops Discharge Disposition: HOME SELF-CARE
== END 2024-10-21 13:39 | disposition home or self-care (01) | DRG 770 ==
LOC: EC 11:35 → 5NMEDONC 16:20
PROVIDERS: ADMIT Internal Medicine; ATTEND Internal Medicine
PROC: 30233M1 Transfusion of Nonautologous Plasma Cryoprecipitate into Peripheral Vein, Percutaneous Approach (ICD-10-PCS; 2024-10-17)
PROC: 10D17ZZ Extraction of Products of Conception, Retained, Via Natural or Artificial Opening (ICD-10-PCS; principal; 2024-10-19 13:05)
DX: O04.87 Sepsis following (induced) termination of pregnancy (principal); A48.3 Toxic shock syndrome; K72.00 Acute and subacute hepatic failure without coma; D61.818 Other pancytopenia; O04.6 Delayed or excessive hemorrhage following (induced) termination of pregnancy; D50.9 Iron deficiency anemia, unspecified; D70.3 Neutropenia due to infection; N83.202 Unspecified ovarian cyst, left side; R21 Rash and other nonspecific skin eruption; Z80.6 Family history of leukemia; Z87.440 Personal history of urinary (tract) infections
CPT/HCPCS: 36415; 70544; 70551; 71046; 71275; 74177; 76700; 76856; 80053; 80202; 81001; 82607; 82728; 82747; 83010; 83540; 83550; 83605; 83615; 83690; 83921; 84145; 84478; 84702; 84703; 85025; 85045; 85379; 85384; 85610; 85730; 86140; 86780; 86850; 86900; 86901; 87040; 87390; 87636; 87651; 88305; 93306; 93970; 96361; 96365; 96366; 96367; 96375; 99285